=== PATIENT | male | born 1945 | race American Indian/Alaskan Native ===

== ENCOUNTER 2020-03-04 12:08 | Inpatient (IN) | payer MEDICARE ==
[2020-03-04] MEDS ORDERED: SODIUM CHLORIDE 0.9% 1000 ML IV SOLN IV ONE (13:26)
--- NOTE | 2020-03-04 13:38 | Emergency Department Report ---
ED General Adult HPI - General Chief complaint: Skin/Abscess/Foreign Body Stated complaint: FACE SWELLING PUI?: No Time Seen by Provider: 03/04/20 12:43 Source: EMS ( EMS documentation not available at time of chart dictation ), RN notes reviewed Mode of arrival: Stretcher Limitations: Altered Mental Status, Physical Limitation, Other (Patient is nonverbal. The patient is not accompanied by friends or family at this time for additional information or collateral information) - History of Present Illness Initial comments: The patient was evaluated in the emergency department for symptoms described in the history of present illness. He/she was evaluated in the context of the global COVID-19 pandemic, which necessitated consideration that the patient might be at risk for infection with the virus that causes COVID-19. In stitutional protocols and algorithms that pertain to the evaluation of patients at risk for COVID-19 are in a state of rapid change based on information released by regulatory bodies including the CDC and federal and state organizations. These policies and algorithms were followed during the patient's care in the emergency department. Please note that these policies, procedures and recommendations changed on a rapid basis. The patient is a 74-year-old gentleman. The patient is not known to myself previously. History obtained from enclosed paperwork, and from nursing team, who received report from EMS. Patient was recently admitted to [facility], February 13 through February 20. He apparently had an encounter for orthopedic surgery, and was reportedly admitted for a fracture of the unspecified part of the neck of the left femur, subsequent encounter for closed fracture with routine healing. He apparently had surgical fixation of the left femur, and was reportedly discharged with a Anguiano catheter, and abductor pillow. His primary care doctor is Dr. Alf Kruger His physical medicine physician is Dr.Ene Mikaela Cuevas It is not known who his orthopedic physician is. He appears to have a history of hypothyroidism, and hypertension. He also has a history of urinary retention, dementia, and anemia. He was sent to the emergency room for right-sided neck redness, warmth, swelling. He does not know when his symptoms started. It is not known if there is any trauma. The patient is not verbal at this time, and he is not able to describe the qualitative nature of his symptoms, exacerbating, or relieving factors. He is not accompanied by friends or family at this time for additional information or collateral information. -: unknown Location: neck Radiation: other Severity scale (0 -10): 2 Quality: other Consistency: other Improves with: other Worsens with: other - Related Data Home Medications Medication Instructions Recorded Confirmed Last Taken Acetaminophen [Tylenol] 650 mg PO Q6H PRN 03/04/20 03/04/20 Unknown Aspirin [Adult Aspirin] 81 mg PO DAILY 03/04/20 03/04/20 Unknown Cholecalciferol (Vitamin D3) 2,000 unit PO QDAY 03/04/20 03/04/20 Unknown [Vitamin D3 2,000 UNIT CAP] Enoxaparin [Lovenox] 40 mg SQ QDAY 03/04/20 03/04/20 Unknown HYDROcodone/APAP 5-325 [[place] 1 each PO Q8HR PRN 03/04/20 03/04/20 Unknown 5/325] LORazepam [Lorazepam] 0.5 mg PO DAILY 03/04/20 03/04/20 Unknown Lactobacillus Rhamnosus GG 1 each PO QDAY 03/04/20 03/04/20 Unknown [Culturelle] Levothyroxine [Synthroid] 75 mcg PO QAM 03/04/20 03/04/20 Unknown Melatonin 1 mg PO QHS 03/04/20 03/04/20 Unknown Polyethylene Glycol 3350 17 gm PO DAILY PRN 03/04/20 03/04/20 Unknown [Powderlax] Sertraline [Zoloft] 100 mg PO QDAY 03/04/20 03/04/20 Unknown Tamsulosin [Flomax] 0.4 mg PO QDAY 03/04/20 03/04/20 Unknown lisinopriL [Zestril] 20 mg PO QDAY 03/04/20 03/04/20 Unknown risperiDONE [RisperDAL] 0.25 mg PO QHS 03/04/20 03/04/20 Unknown Allergies Allergy/AdvReac Type Severity Reaction Status Date / Time duloxetine [From Cymbalta] Allergy Unknown Verified 03/04/20 12:47 lamotrigine [From Lamictal] Allergy Unknown Verified 03/04/20 12:47 milk Allergy Unknown Verified 03/04/20 12:47 ofloxacin Allergy Unknown Verified 03/04/20 12:47 pregabalin [From Lyrica] Allergy Unknown Verified 03/04/20 12:47 ED Review of Systems ROS: Stated complaint: FACE SWELLING Other details as noted in HPI Comment: Unobtainable due to pts medical conditions ED Past Medical Hx - Past Medical History Previous Medical History?: Yes Hx Hypertension: Yes Additional medical history: Hypothyroidism, Alzheimer's, - Social History Smoking Status: Smoker, Current Status Unknown - Medications Home Medications: Home Medications Medication Instructions Recorded Confirmed Last Taken Type Acetaminophen [Tylenol] 650 mg PO Q6H PRN 03/04/20 03/04/20 Unknown History Aspirin [Adult Aspirin] 81 mg PO DAILY 03/04/20 03/04/20 Unknown History Cholecalciferol (Vitamin D3) 2,000 unit PO QDAY 03/04/20 03/04/20 Unknown History [Vitamin D3 2,000 UNIT CAP] Enoxaparin [Lovenox] 40 mg SQ QDAY 03/04/20 03/04/20 Unknown History HYDROcodone/APAP 5-325 [[place] 1 each PO Q8HR PRN 03/04/20 03/04/20 Unknown History 5/325] LORazepam [Lorazepam] 0.5 mg PO DAILY 03/04/20 03/04/20 Unknown History Lactobacillus Rhamnosus GG 1 each PO QDAY 03/04/20 03/04/20 Unknown History [Culturelle] Levothyroxine [Synthroid] 75 mcg PO QAM 03/04/20 03/04/20 Unknown History Melatonin 1 mg PO QHS 03/04/20 03/04/20 Unknown History Polyethylene Glycol 3350 17 gm PO DAILY PRN 03/04/20 03/04/20 Unknown History [Powderlax] Sertraline [Zoloft] 100 mg PO QDAY 03/04/20 03/04/20 Unknown History Tamsulosin [Flomax] 0.4 mg PO QDAY 03/04/20 03/04/20 Unknown History lisinopriL [Zestril] 20 mg PO QDAY 03/04/20 03/04/20 Unknown History risperiDONE [RisperDAL] 0.25 mg PO QHS 03/04/20 03/04/20 Unknown History ED Physical Exam - General Limitations: Altered Mental Status, Physical Limitation, Other General appearance: in distress - Head Head exam: Present: atraumatic, normocephalic - Eye Eye exam: Present: normal appearance - ENT ENT exam: Present: mucous membranes dry, TM's normal bilaterally, normal external ear exam - Neck Neck exam: Present: tenderness, other (On the right lateral side of the neck there is diffuse erythema, induration, and tenderness. The trachea is midline. There is no stridor.). Absent: normal inspection - Respiratory Respiratory exam: Present: accessory muscle use. Absent: respiratory distress, wheezes, rales, rhonchi, stridor - Cardiovascular Cardiovascular Exam: Present: normal rhythm, tachycardia, normal heart sounds. Absent: systolic murmur, diastolic murmur, rubs, gallop - GI/Abdominal GI/Abdominal exam: Present: soft. Absent: distended, tenderness, guarding, rebound, rigid, pulsatile mass - Rectal Rectal exam: Absent: normal inspection (There is a stage I sacral ulcer noted. Chaperoned by nurse Tate Tanner) - exam: Present: normal inspection (Is a Anguiano catheter in place draining clear yellow urine.) - Extremities Exam Extremities exam: Present: normal inspection (There are interrupted tom noted on the left hip, which are healing well, without redness, pus or streaking. There is no significant tenderness.), other (2+ pulses noted in the bilateral upper and lower extremities. There is no palpable cord. negative H omans sign. Muscular compartments are soft. The pelvis is stable.) - Back Exam Back exam: Present: normal inspection. Absent: tenderness, CVA tenderness (R), CVA tenderness (L), paraspinal tenderness, vertebral tenderness - Neurological Exam Neurological exam: Present: altered, other (The patient is awake. The patient moves 4 extremities. The patient is nonverbal. Detailed neurologic examination not possible secondary to patient not answering questions, or following commands) - Skin Skin exam: Present: warm, erythema (There is right neck erythema), ecchymosis (There is left bicep ecchymosis) ED Course Vital Signs 03/04/20 03/04/20 03/04/20 12:46 14:05 16:33 Temperature 98.2 F 99.6 F Pulse Rate 103 H 107 H 100 H Respiratory 17 22 23 Rate Blood Pressure Blood Pressure 124/82 147/79 96/76 [Right] O2 Sat by Pulse 98 97 99 Oximetry 03/04/20 03/04/20 17:16 17:46 Temperature Pulse Rate 100 H 101 H Respiratory 22 24 Rate Blood Pressure 142/76 158/78 Blood Pressure [Right] O2 Sat by Pulse 98 97 Oximetry - Reevaluation(s) Reevaluation #1: 03/04/20 13:40 Differential diagnosis, include but not limited to: Cellulitis, abscess, septic thrombophlebitis, Lemierre's disease Assessment and plan: 74-year-old gentleman with dry mucous membranes, who was tachycardic and tachypneic, rectal temperature of 99.3 degrees, with tender warm red right-sided neck, concerning for neck infection. Patient will be resuscitated according to the sepsis pathway. CT scan of the neck is requested. His orthopedic site appears to be clean, healing well, without redness, pus or streaking. He has an indwelling Anguiano catheter, that will need to be changed out, and a fresh urine sample should be sent. He will be medicated empirically with clindamycin and fluids. We have requested his old medical records from [facility]. Of note, there is a request on his [facility] paperwork to "please remove tom on the left hip." This wound does not appear to be infected or acutely decompensated, this will need to be done by his orthopedist/operating physician of record. This is not an emergency condition at this time. Reevaluation #2: P Patient's is at the bedside. She endorses that the orthopedist is Dr. Dallas, with [facility]. She indicates that they were supposed to follow-up with him today to have the tom discontinued. She indicates the patient has chronic dementia. She indicates the patient is poorly verbal/nonverbal at baseline. I have updated the patient's on the patient's situation. I have also advised her that they will need to follow-up with her outpatient orthopedist as an outpatient to have the tom removed/discontinued. She is amenable to this plan of care at this time. In addition, as per the patient's , patient has a left humerus fracture, and a left wrist fracture, hence left bicep ecchymosis, patient needs a sling for t he left upper extremity, and has a splint for his left wrist. . 03/04/20 13:55 Reevaluation #3: 03/04/20 14:25 Laboratory studies show leukocytosis of 31,000, hypernatremia, metabolic acidosis, renal insufficiency. Patient ruling in for Sirs/sepsis criteria as we expected. CT scan of the neck will be changed to a noncontrast CT scan of the neck, we will obtain upper e xtremity DVT study to evaluate for thrombosis. Prognosis remains guarded. Patient's is updated on this plan of care. She reports that while the patient was in the hospital, she would have to feed him, and assist with eating and drinking. She reports it typically took an hour to feed the patient. She further reports that where the patient is receiving his physical therapy, rehabilitation, [place], secondary to COVID, gas and visitors are not allowed. She feels that the patient's nails are "dirty, and that he "looks dehydrated." He also had "urinary issues" while he was in the [facility], and required multiple placements of Anguiano catheters, and occasionally was found to have postvoid residual of 900 cc. She reports they are going to follow-up with an outpatient neurologist at some point. I updated the patient's on the patient's current situation and labo ratory studies. To the best of her recollection, the patient does not have a history of renal insufficiency. 03/04/20 14:32 Reevaluation #4: 03/04/20 15:04 CT scan of the neck shows cellulitis without abscess, phlegmon. Upper extremity DVT study is pending. Hospital physician, Dr. Desir will admit patient to the medical service. Patient's is updated. 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 Unfractionated heparin is ordered. We have placed a page out to vascular surgery to follow in consultation. - Consultations Consultation #1: 03/04/20 14:43 Discussed history, physical, pertinent laboratory studies with nephrology on- call, Ms. Urbano, nurse practitioner working with Dr. Melo, nephrology will see the patient in conjunction. Consultation #2: 03/04/20 17:23 Discussed history, physical, pertinent laboratory studies and imaging studies with vascular surgeon on-call, Dr. Diggs. His group will follow in consultation. Agrees with fluids, antibiotics and systemic anticoagulation. ED Medical Decision Making - Lab Data Result diagrams: 03/04/20 13:38 03/04/20 13:38 Vital Signs 03/04/20 12:46 Temperature 98.2 F Pulse Rate 103 H Respiratory 17 Rate Blood Pressure 124/82 [Right] O2 Sat by Pulse 98 Oximetry Lab Results 03/04/20 03/04/20 03/04/20 Range/Units 13:38 13:38 13:38 WBC 31.9 H (4.5-11.0) K/mm3 RBC 3.59 L (3.65-5.03) M/mm3 Hgb 10.7 L (11.8-15.2) gm/dl Hct 32.5 L (35.5-45.6) % MCV 91 (84-94) fl MCH 30 (28-32) pg MCHC 33 (32-34) % RDW 16.0 H (13.2-15.2) % Plt Count 724 H (140-440) K/mm3 Seg Neutrophils % Remote Broadcast Technician PT 15.6 H (12.2-14.9) Sec. INR 1.21 H (0.87-1.13) APTT 33.0 (24.2-36.6) Sec. Sodium 154 H (137-145) mmol/L Potassium 4.3 (3.6-5.0) mmol/L Chloride 111.3 H (98-107) mmol/L Carbon Dioxide 19 L (22-30) mmol/L Anion Gap 28 mmol/L BUN 143 H (9-20) mg/dL Creatinine 5.4 H (0.8-1.3) mg/dL Estimated GFR 13 ml/min BUN/Creatinine Ratio 26 % Glucose 188 H (75-100) mg/dL Lactic Acid (0.7-2.0) mmol/L Calcium 8.8 (8.4-10.2) mg/dL Magnesium (1.7-2.3) mg/dL Total Bilirubin 0.60 (0.1-1.2) mg/dL AST 51 H (5-40) units/L ALT 60 H (7-56) units/L Alkaline Phosphatase 185 H (35-129) units/L Total Creatine Kinase (55-170) units/L Total Protein 8.1 (6.3-8.2) g/dL Albumin 3.1 L (3.9-5) g/dL Albumin/Globulin Ratio 0.6 % Urine Color (Yellow) Urine Turbidity (Clear) Urine pH (5.0-7.0) Ur Specific [place] (1.003-1.030) Urine Protein (Negative) mg/dL Urine Glucose (UA) (Negative) mg/dL Urine Ketones (Negative) mg/dL Urine Blood (Negative) Urine Nitrite (Negative) Urine Bilirubin (Negative) Urine Urobilinogen (<2.0) mg/dL Ur Leukocyte Esterase (Negative) Urine WBC (Auto) (0.0-6.0) /HPF Urine RBC (Auto) (0.0-6.0) /HPF U Epithel Cells (Auto) (0-13.0) /HPF Urine Bacteria (Auto) (Negative) /HPF Ur Transition Epith Cell /HPF Urine Mucus /HPF Salicylates (2.8-20.0) mg/dL Acetaminophen (10.0-30.0) ug/mL 03/04/20 03/04/20 03/04/20 Range/Units 13:38 13:38 13:38 WBC (4.5-11.0) K/mm3 RBC (3.65-5.03) M/mm3 Hgb (11.8-15.2) gm/dl Hct (35.5-45.6) % MCV (84-94) fl MCH (28-32) pg MCHC (32-34) % RDW (13.2-15.2) % Plt Count (140-440) K/mm3 Seg Neutrophils % PT (12.2-14.9) Sec. INR (0.87-1.13) APTT (24.2-36.6) Sec. Sodium (137-145) mmol/L Potassium (3.6-5.0) mmol/L Chloride (98-107) mmol/L Carbon Dioxide (22-30) mmol/L Anion Gap mmol/L BUN (9-20) mg/dL Creatinine (0.8-1.3) mg/dL Estimated GFR ml/min BUN/Creatinine Ratio % Glucose (75-100) mg/dL Lactic Acid 1.40 (0.7-2.0) mmol/L Calcium (8.4-10.2) mg/dL Magnesium 3.40 H (1.7-2.3) mg/dL Total Bilirubin (0.1-1.2) mg/dL AST (5-40) units/L ALT (7-56) units/L Alkaline Phosphatase (35-129) units/L Total Creatine Kinase 82 (55-170) units/L Total Protein (6.3-8.2) g/dL Albumin (3.9-5) g/dL Albumin/Globulin Ratio % Urine Color (Yellow) Urine Turbidity (Clear) Urine pH (5.0-7.0) Ur Specific [place] (1.003-1.030) Urine Protein (Negative) mg/dL Urine Glucose (UA) (Negative) mg/dL Urine Ketones (Negative) mg/dL Urine Blood (Negative) Urine Nitrite (Negative) Urine Bilirubin (Negative) Urine Urobilinogen (<2.0) mg/dL Ur Leukocyte Esterase (Negative) Urine WBC (Auto) (0.0-6.0) /HPF Urine RBC (Auto) (0.0-6.0) /HPF U Epithel Cells (Auto) (0-13.0) /HPF Urine Bacteria (Auto) (Negative) /HPF Ur Transition Epith Cell /HPF Urine Mucus /HPF Salicylates < 0.3 L (2.8-20.0) mg/dL Acetaminophen (10.0-30.0) ug/mL 03/04/20 03/04/20 Range/Units 13:38 13:55 WBC (4.5-11.0) K/mm3 RBC (3.65-5.03) M/mm3 Hgb (11.8-15.2) gm/dl Hct (35.5-45.6) % MCV (84-94) fl MCH (28-32) pg MCHC (32-34) % RDW (13.2-15.2) % Plt Count (140-440) K/mm3 Seg Neutrophils % PT (12.2-14.9) Sec. INR (0.87-1.13) APTT (24.2-36.6) Sec. Sodium (137-145) mmol/L Potassium (3.6-5.0) mmol/L Chloride (98-107) mmol/L Carbon Dioxide (22-30) mmol/L Anion Gap mmol/L BUN (9-20) mg/dL Creatinine (0.8-1.3) mg/dL Estimated GFR ml/min BUN/Creatinine Ratio % Glucose (75-100) mg/dL Lactic Acid (0.7-2.0) mmol/L Calcium (8.4-10.2) mg/dL Magnesium (1.7-2.3) mg/dL Total Bilirubin (0.1-1.2) mg/dL AST (5-40) units/L ALT (7-56) units/L Alkaline Phosphatase (35-129) units/L Total Creatine Kinase (55-170) units/L Total Protein (6.3-8.2) g/dL Albumin (3.9-5) g/dL Albumin/Globulin Ratio % Urine Color Ewa (Yellow) Urine Turbidity Turbid (Clear) Urine pH 5.0 (5.0-7.0) Ur Specific [place] 1.017 (1.003-1.030) Urine Protein 30 mg/dl (Negative) mg/dL Urine Glucose (UA) Neg (Negative) mg/dL Urine Ketones Neg (Negative) mg/dL Urine Blood Sm (Negative) Urine Nitrite Neg (Negative) Urine Bilirubin Neg (Negative) Urine Urobilinogen < 2.0 (<2.0) mg/dL Ur Leukocyte Esterase Lg (Negative) Urine WBC (Auto) > 182.0 H (0.0-6.0) /HPF Urine RBC (Auto) 31.0 (0.0-6.0) /HPF U Epithel Cells (Auto) 1.0 (0-13.0) /HPF Urine Bacteria (Auto) 4+ (Negative) /HPF Ur Transition Epith Cell 5 /HPF Urine Mucus Few /HPF Salicylates (2.8-20.0) mg/dL Acetaminophen 5.0 L (10.0-30.0) ug/mL Lab Results 03/04/20 03/04/20 03/04/20 Range/Units 13:38 13:38 13:38 WBC 31.9 H (4.5-11.0) K/mm3 RBC 3.59 L (3.65-5.03) M/mm3 Hgb 10.7 L (11.8-15.2) gm/dl Hct 32.5 L (35.5-45.6) % MCV 91 (84-94) fl MCH 30 (28-32) pg MCHC 33 (32-34) % RDW 16.0 H (13.2-15.2) % Plt Count 724 H (140-440) K/mm3 Seg Neutrophils % Remote Broadcast Technician PT 15.6 H (12.2-14.9) Sec. INR 1.21 H (0.87-1.13) APTT 33.0 (24.2-36.6) Sec. Sodium 154 H (137-145) mmol/L Potassium 4.3 (3.6-5.0) mmol/L Chloride 111.3 H (98-107) mmol/L Carbon Dioxide 19 L (22-30) mmol/L Anion Gap 28 mmol/L BUN 143 H (9-20) mg/dL Creatinine 5.4 H (0.8-1.3) mg/dL Estimated GFR 13 ml/min BUN/Creatinine Ratio 26 % Glucose 188 H (75-100) mg/dL Lactic Acid (0.7-2.0) mmol/L Calcium 8.8 (8.4-10.2) mg/dL Magnesium (1.7-2.3) mg/dL Total Bilirubin 0.60 (0.1-1.2) mg/dL AST 51 H (5-40) units/L ALT 60 H (7-56) units/L Alkaline Phosphatase 185 H (35-129) units/L Total Creatine Kinase (55-170) units/L Total Protein 8.1 (6.3-8.2) g/dL Albumin 3.1 L (3.9-5) g/dL Albumin/Globulin Ratio 0.6 % Urine Color (Yellow) Urine Turbidity (Clear) Urine pH (5.0-7.0) Ur Specific [place] (1.003-1.030) Urine Protein (Negative) mg/dL Urine Glucose (UA) (Negative) mg/dL Urine Ketones (Negative) mg/dL Urine Blood (Negative) Urine Nitrite (Negative) Urine Bilirubin (Negative) Urine Urobilinogen (<2.0) mg/dL Ur Leukocyte Esterase (Negative) Urine WBC (Auto) (0.0-6.0) /HPF Urine RBC (Auto) (0.0-6.0) /HPF U Epithel Cells (Auto) (0-13.0) /HPF Urine Bacteria (Auto) (Negative) /HPF Ur Transition Epith Cell /HPF Urine Mucus /HPF Salicylates (2.8-20.0) mg/dL Acetaminophen (10.0-30.0) ug/mL 03/04/20 03/04/20 03/04/20 Range/Units 13:38 13:38 13:38 WBC (4.5-11.0) K/mm3 RBC (3.65-5.03) M/mm3 Hgb (11.8-15.2) gm/dl Hct (35.5-45.6) % MCV (84-94) fl MCH (28-32) pg MCHC (32-34) % RDW (13.2-15.2) % Plt Count (140-440) K/mm3 Seg Neutrophils % PT (12.2-14.9) Sec. INR (0.87-1.13) APTT (24.2-36.6) Sec. Sodium (137-145) mmol/L Potassium (3.6-5.0) mmol/L Chloride (98-107) mmol/L Carbon Dioxide (22-30) mmol/L Anion Gap mmol/L BUN (9-20) mg/dL Creatinine (0.8-1.3) mg/dL Estimated GFR ml/min BUN/Creatinine Ratio % Glucose (75-100) mg/dL Lactic Acid 1.40 (0.7-2.0) mmol/L Calcium (8.4-10.2) mg/dL Magnesium 3.40 H (1.7-2.3) mg/dL Total Bilirubin (0.1-1.2) mg/dL AST (5-40) units/L ALT (7-56) units/L Alkaline Phosphatase (35-129) units/L Total Creatine Kinase 82 (55-170) units/L Total Protein (6.3-8.2) g/dL Albumin (3.9-5) g/dL Albumin/Globulin Ratio % Urine Color (Yellow) Urine Turbidity (Clear) Urine pH (5.0-7.0) Ur Specific [place] (1.003-1.030) Urine Protein (Negative) mg/dL Urine Glucose (UA) (Negative) mg/dL Urine Ketones (Negative) mg/dL Urine Blood (Negative) Urine Nitrite (Negative) Urine Bilirubin (Negative) Urine Urobilinogen (<2.0) mg/dL Ur Leukocyte Esterase (Negative) Urine WBC (Auto) (0.0-6.0) /HPF Urine RBC (Auto) (0.0-6.0) /HPF U Epithel Cells (Auto) (0-13.0) /HPF Urine Bacteria (Auto) (Negative) /HPF Ur Transition Epith Cell /HPF Urine Mucus /HPF Salicylates < 0.3 L (2.8-20.0) mg/dL Acetaminophen (10.0-30.0) ug/mL 03/04/20 03/04/20 Range/Units 13:38 13:55 WBC (4.5-11.0) K/mm3 RBC (3.65-5.03) M/mm3 Hgb (11.8-15.2) gm/dl Hct (35.5-45.6) % MCV (84-94) fl MCH (28-32) pg MCHC (32-34) % RDW (13.2-15.2) % Plt Count (140-440) K/mm3 Seg Neutrophils % PT (12.2-14.9) Sec. INR (0.87-1.13) APTT (24.2-36.6) Sec. Sodium (137-145) mmol/L Potassium (3.6-5.0) mmol/L Chloride (98-107) mmol/L Carbon Dioxide (22-30) mmol/L Anion Gap mmol/L BUN (9-20) mg/dL Creatinine (0.8-1.3) mg/dL Estimated GFR ml/min BUN/Creatinine Ratio % Glucose (75-100) mg/dL Lactic Acid (0.7-2.0) mmol/L Calcium (8.4-10.2) mg/dL Magnesium (1.7-2.3) mg/dL Total Bilirubin (0.1-1.2) mg/dL AST (5-40) units/L ALT (7-56) units/L Alkaline Phosphatase (35-129) units/L Total Creatine Kinase (55-170) units/L Total Protein (6.3-8.2) g/dL Albumin (3.9-5) g/dL Albumin/Globulin Ratio % Urine Color Ewa (Yellow) Urine Turbidity Turbid (Clear) Urine pH 5.0 (5.0-7.0) Ur Specific [place] 1.017 (1.003-1.030) Urine Protein 30 mg/dl (Negative) mg/dL Urine Glucose (UA) Neg (Negative) mg/dL Urine Ketones Neg (Negative) mg/dL Urine Blood Sm (Negative) Urine Nitrite Neg (Negative) Urine Bilirubin Neg (Negative) Urine Urobilinogen < 2.0 (<2.0) mg/dL Ur Leukocyte Esterase Lg (Negative) Urine WBC (Auto) > 182.0 H (0.0-6.0) /HPF Urine RBC (Auto) 31.0 (0.0-6.0) /HPF U Epithel Cells (Auto) 1.0 (0-13.0) /HPF Urine Bacteria (Auto) 4+ (Negative) /HPF Ur Transition Epith Cell 5 /HPF Urine Mucus Few /HPF Salicylates (2.8-20.0) mg/dL Acetaminophen 5.0 L (10.0-30.0) ug/mL - Radiology Data Radiology results: pending, report reviewed, image reviewed xr chest : negative Print Report Referring Physician: HEIDY SMITH Patient Name: CARRILLO CROCKETT Date of : 1945 Sex: Male Report Date: 2020-03-04 Report Status: Finalized Findings [facility] [address] [place] [address] Cat Scan Report Signed Patient: CARRILLO CROCKETT MR#: [id number] 6 : 1945 ct:[id number] Age/Sex: 74 / M ADM Date: 03/04/20 Loc: ED Attending Dr: Ordering Physician: HEIDY SMITH MD Date of Service: 03/04/20 Procedure(s): CT neck wo con Accession Number(s): [id number] cc: HEIDY SMITH MD NECK CT 03/04/2020 HISTORY: right sided neck pain and swelling NO IV, ELEVATED CREAT AND DECREASED GFR FINDINGS: Unenhanced CT images of the soft tissues of the neck were obtained. No previous studies are available here for comparison. There is a prominent enlargement of the right parotid gland, associated with surrounding cellulitic changes in the parotid region and extending downward along the right lateral aspect of the neck. Swelling and enlargement of the platysma muscle is noted, consistent with inflammatory response. There is no evidence of fluid collection or abscess. There is bilateral symmetric enlargement and fatty replacement of the submandibular glands, consistent with chronic inflammatory change. There is no evidence of active inflammation of the submandibular glands. Left parotid gland is unremarkable. Incidental note is made of a negative cisterna magna, normal variant. IMPRESSION: Cellulitic inflammatory changes associated with the right parotid gland and surrounding soft tissues, consistent with extensive cellulitis. No evidence of abscess. All CT scans at this location are performed using dose reduction to ALARA by means of automated exposure control. Signer Name: Dmitry Day MD Signed: 03/04/2020 2:49 PM Workstation Name: [id number] Transcribed By: NASIMA Dictated By: Dmitry Day MD Electronically Authenticated By: Dmitry Day MD Signed Date/Time: 03/04/20 1449 DD/ 1445 TD/TT: Print Report Referring Physician: HEIDY SMITH Patient Name: CARRILLO CROCKETT Date of : 1945 Sex: Male Report Date: 2020-03-04 Report Status: Finalized Findings [facility] [address] [place], [place] [address] XRay Report Signed Patient: CARRILLO CROCKETT MR#: [id number] 6 : 1945 Acct:[id number] Age/Sex: 74 / M ADM Date: 03/04/20 Loc: ED Attending Dr: Ordering Physician: HEIDY SMITH MD Date of Service: 03/04/20 Procedure(s): XR chest 1V ap Accession Number(s): [id number] cc: HEIDY SMITH MD Fluoro Time In Minutes: CHEST 1 VIEW INDICATION: sepsis weal COMPARISON: None FINDINGS: SUPPORT DEVICES: None. HEART / MEDIASTINUM: No significant abnormality. LUNGS / PLEURA: No significant pulmonary or pleural abnormality. No pneumothorax. ADDITIONAL FINDINGS: IMPRESSION: 1. No acute cardiopulmonary disease Signer Name: Shai Killian MD Signed: 03/04/2020 1:56 PM Workstation Name: [id number] Transcribed By: REGAN Dictated By: Shai Killian MD Electronically Authenticated By: Shai Killian MD Signed Date/Time: 03/04/20 1356 DD/ 1355 Critical Care Time: Yes Critical care time in (mins) excluding proc time.: 35 Critical care attestation.: If time is entered above; I have spent that time in minutes in the direct care of this critically ill patient, excluding procedure time. ED Disposition Clinical Impression: SIRS (systemic inflammatory response syndrome), TERRY (acute kidney injury), Hypernatremia, Metabolic acidosis, Anguiano catheter in place, History of femur fracture, History of humerus fracture Disposition: OP ADMIT IP TO THIS HOSP Is pt being admited?: Yes Does the pt Need Aspirin: No Condition: Serious
[2020-03-04 13:57] LABS: Hematocrit 32.5 % (35.5-45.6); Hemoglobin 10.7 gm/dl (11.8-15.2); Mean Corpuscular HGB Conc 33 % (32-34); Mean Corpuscular Volume 91 fl (84-94); Platelet Count 724 K/mm3 (140-440); Red Blood Count 3.59 M/mm3 (3.65-5.03)
[2020-03-04] MEDS ORDERED: CLINDAMYCIN 600 MG/50 mL 600 MG/50 ML BAG IV SCH (14:00)
--- NOTE | 2020-03-04 14:00 | XRay Report ---
CHEST 1 VIEW INDICATION: sepsis weal COMPARISON: None FINDINGS: SUPPORT DEVICES: None. HEART / MEDIASTINUM: No significant abnormality. LUNGS / PLEURA: No significant pulmonary or pleural abnormality. No pneumothorax. ADDITIONAL FINDINGS: IMPRESSION: 1. No acute cardiopulmonary disease Signer Name: Shai Killian MD Signed: 03/04/2020 1:56 PM Workstation Name: [id number]
[2020-03-04 14:07] LABS: INR 1.21 (0.87-1.13)
[2020-03-04 14:10] LABS: Bacteria,Urine 4+ /HPF (Negative); Bilirubin,Urine NEG (Negative); Blood,Urine SM (Negative); Color,Urine Amber (Yellow); Mucus,Urine FEW /HPF; Urobilinogen,Urine < 2.0 mg/dL (<2.0)
[2020-03-04 14:10] LABS: Albumin 3.1 g/dL (3.9-5); Calcium 8.8 mg/dL (8.4-10.2)
[2020-03-04 14:15] LABS: WBC,Urine > 182.0 /HPF (0.0-6.0)
[2020-03-04] MEDS ORDERED: cefTRIAXone/NS 1 GM/50 ML 1 GM/50 ML BAG IV ONE (14:23)
[2020-03-04] MEDS ORDERED: fentaNYL 100 MCG/2 ML INJ IV ONE (14:33)
[2020-03-04 14:40] LABS: Total Cells Counted 100
[2020-03-04 14:41] LABS: Anisocytosis Few; Band Neutrophils # (Manual) 0.6 K/mm3; Basophils % (Manual) 0 % (0.0-1.8); Eosinophils % (Manual) 0 % (0.0-4.3); Macrocytosis Few; Platelet Estimate Consistent w Auto
--- NOTE | 2020-03-04 14:54 | Cat Scan Report ---
NECK CT 03/04/2020 HISTORY: right sided neck pain and swelling NO IV, ELEVATED CREAT AND DECREASED GFR FINDINGS: Unenhanced CT images of the soft tissues of the neck were obtained. No previous studies are available here for comparison. There is a prominent enlargement of the right parotid gland, associated with surrounding cellulitic c hanges in the parotid region and extending downward along the right lateral aspect of the neck. Swell ing and enlargement of the platysma muscle is noted, consistent with inflammatory response. There is no evidence of fluid collection or abscess. There is bilateral symmetric enlargement and fatty replacement of the submandibular glands, consisten t with chronic inflammatory change. There is no evidence of active inflammation of the submandibular glands. Left parotid gland is unremarkable. Incidental note is made of a negative cisterna magna, normal variant. IMPRESSION: Cellulitic inflammatory changes associated with the right parotid gland and surrounding s oft tissues, consistent with extensive cellulitis. No evidence of abscess. All CT scans at this location are performed using dose reduction to ALARA by means of automated expos ure control. Signer Name: Dmitry Day MD Signed: 03/04/2020 2:49 PM Workstation Name: [id number]
--- NOTE | 2020-03-04 15:05 | History and Physical Report ---
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 Patient is nonverbal, lethargic and is unable to provide history at the time of my evaluation. Patient is at bedside during exam and interview and provides history. As per the patient has experienced a rapid decline in his state of health after suffering a fall complicated by hip fracture on February 13. Patient reports increased confusion as well as right neck swelling over the past 2 days with progressively worsening symptoms over the same timeframe. EMS was notified and upon arrival the patient was found to be in distress and subsequently transported to [facility] for further care and evaluation of the aforementioned symptoms. Patient seen and evaluated in the emergency department. Lab and imaging studies reviewed. 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 Patient admitted to ICU due to increased risk of multisystem decompensation. Vascular surgery service consulted in the emergency department and the patient is initiated on a heparin drip. Patient found to have poor prognosis. Advanced care planning conducted in ED. Patient prognosis discussed with . Patient acknowledges understanding and agreement with care plan. Patient is confused and lethargic at the time of my evaluation but the patient has a positive gag reflex and is able to protect his airway without difficulty. Th Past History Past Medical History: anemia, hypertension, hypothyroidism, other (See HPI) Past Surgical History: Other (Femur Repari) Social history: , lives with family. denies: smoking, alcohol abuse, pr escription drug abuse Family history: hypertension Medications and Allergies Allergies Allergy/AdvReac Type Severity Reaction Status Date / Time duloxetine [From Cymbalta] Allergy Unknown Verified 03/04/20 12:47 lamotrigine [From Lamictal] Allergy Unknown Verified 03/04/20 12:47 milk Allergy Unknown Verified 03/04/20 12:47 ofloxacin Allergy Unknown Verified 03/04/20 12:47 pregabalin [From Lyrica] Allergy Unknown Verified 03/04/20 12:47 Active Meds: Active Medications Clindamycin HCl (Cleocin 600 Mg/50 Ml) 600 mg in 50 mls @ 100 mls/hr IV NOW DIPTI; Protocol Last Admin: 03/04/20 14:02 Dose: 100 mls/hr Documented by: Review of Systems ROS unobtainable: due to mental status Exam - Constitutional Vitals: Temp Pulse Resp BP Pulse Ox 99.6 F 107 H 22 147/79 97 03/04/20 14:05 03/04/20 14:05 03/04/20 14:05 03/04/20 14:05 03/04/20 14:05 General appearance: Present: severe distress - EENT Eyes: Present: PERRL ENT: clear oral mucosa, hearing decreased - Neck Neck: Present: supple, other (Right neck erythema, edema, induration.) - Respiratory Respiratory effort: labored Respiratory: bilateral: CTA - Cardiovascular Rhythm: regular Heart Sounds: Present: S1 & S2 - Extremities Extremities: no ischemia Peripheral Pulses: abnormal (Capillary refill greater than 3.5 seconds) - Abdominal General gastrointestinal: Present: soft, non-tender, non-distended, normal bowel sounds Male genitourinary: Present: normal - Integumentary Integumentary: Present: dry, clammy, decreased turgor - Musculoskeletal Musculoskeletal: generalized weakness - Psychiatric Psychiatric: no appropriate mood/affect, no intact judgment & insight, no memory intact - Neurologic Neurologic: CNII-XII intact, no focal deficits, moves all extremities, no gait normal Results - Labs CBC & Chem 7: 03/04/20 13:38 03/04/20 13:38 Labs: Abnormal lab results 03/04/20 03/04/20 03/04/20 Range/Units 13:38 13:38 13:38 WBC 31.9 H (4.5-11.0) K/mm3 RBC 3.59 L (3.65-5.03) M/mm3 Hgb 10.7 L (11.8-15.2) gm/dl Hct 32.5 L (35.5-45.6) % RDW 16.0 H (13.2-15.2) % Plt Count 724 H (140-440) K/mm3 Seg Neuts % (Manual) 91.0 H (40.0-70.0) % Lymphocytes % (Manual) 3.0 L (13.4-35.0) % Nucleated RBC % 1.0 H (0.0-0.9) % Seg Neutrophils # Man 29.0 H (1.8-7.7) K/mm3 Lymphocytes # (Manual) 1.0 L (1.2-5.4) K/mm3 Monocytes # (Manual) 1.3 H (0.0-0.8) K/mm3 PT 15.6 H (12.2-14.9) Sec. INR 1.21 H (0.87-1.13) Sodium 154 H (137-145) mmol/L Chloride 111.3 H (98-107) mmol/L Carbon Dioxide 19 L (22-30) mmol/L BUN 143 H (9-20) mg/dL Creatinine 5.4 H (0.8-1.3) mg/dL Glucose 188 H (75-100) mg/dL Magnesium (1.7-2.3) mg/dL AST 51 H (5-40) units/L ALT 60 H (7-56) units/L Alkaline Phosphatase 185 H (35-129) units/L Albumin 3.1 L (3.9-5) g/dL Urine WBC (Auto) (0.0-6.0) /HPF Salicylates (2.8-20.0) mg/dL Acetaminophen (10.0-30.0) ug/mL 03/04/20 03/04/20 03/04/20 Range/Units 13:38 13:38 13:38 WBC (4.5-11.0) K/mm3 RBC (3.65-5.03) M/mm3 Hgb (11.8-15.2) gm/dl Hct (35.5-45.6) % RDW (13.2-15.2) % Plt Count (140-440) K/mm3 Seg Neuts % (Manual) (40.0-70.0) % Lymphocytes % (Manual) (13.4-35.0) % Nucleated RBC % (0.0-0.9) % Seg Neutrophils # Man (1.8-7.7) K/mm3 Lymphocytes # (Manual) (1.2-5.4) K/mm3 Monocytes # (Manual) (0.0-0.8) K/mm3 PT (12.2-14.9) Sec. INR (0.87-1.13) Sodium (137-145) mmol/L Chloride (98-107) mmol/L Carbon Dioxide (22-30) mmol/L BUN (9-20) mg/dL Creatinine (0.8-1.3) mg/dL Glucose (75-100) mg/dL Magnesium 3.40 H (1.7-2.3) mg/dL AST (5-40) units/L ALT (7-56) units/L Alkaline Phosphatase (35-129) units/L Albumin (3.9-5) g/dL Urine WBC (Auto) (0.0-6.0) /HPF Salicylates < 0.3 L (2.8-20.0) mg/dL Acetaminophen 5.0 L (10.0-30.0) ug/mL 03/04/20 Range/Units 13:55 WBC (4.5-11.0) K/mm3 RBC (3.65-5.03) M/mm3 Hgb (11.8-15.2) gm/dl Hct (35.5-45.6) % RDW (13.2-15.2) % Plt Count (140-440) K/mm3 Seg Neuts % (Manual) (40.0-70.0) % Lymphocytes % (Manual) (13.4-35.0) % Nucleated RBC % (0.0-0.9) % Seg Neutrophils # Man (1.8-7.7) K/mm3 Lymphocytes # (Manual) (1.2-5.4) K/mm3 Monocytes # (Manual) (0.0-0.8) K/mm3 PT (12.2-14.9) Sec. INR (0.87-1.13) Sodium (137-145) mmol/L Chloride (98-107) mmol/L Carbon Dioxide (22-30) mmol/L BUN (9-20) mg/dL Creatinine (0.8-1.3) mg/dL Glucose (75-100) mg/dL Magnesium (1.7-2.3) mg/dL AST (5-40) units/L ALT (7-56) units/L Alkaline Phosphatase (35-129) units/L Albumin (3.9-5) g/dL Urine WBC (Auto) > 182.0 H (0.0-6.0) /HPF Salicylates (2.8-20.0) mg/dL Acetaminophen (10.0-30.0) ug/mL Assessment and Plan - Patient Problems (1) Sepsis Current Visit: Yes Status: Acute Qualifiers: Severe sepsis acute organ dysfunction type: acute renal failure Plan to address problem: Sepsis protocol: Admit to ICU, CBC, CMP, chest x-ray, urinalysis, IV fluid resuscitation therapy, IV antibiotic therapy, serial lactic acid level, maintain mean arterial blood pressure greater than or equal to 65, monitor urine output every shift. Critical care team consulted. The high probability of a clinically significant, sudden or life threatening deterioration of the [neuro, cardiac, pulmonary, renal, infectious disease, hematologic, vascular] system(s) required my full and direct attention, intervention and personal management. The aggregate critical care time was [95] minutes. This time is in addition to time spent performing reported procedures but includes the following: [x] Data Review and interpretation [x] Patient assessment and monitoring of vital signs [x] Documentation [x] Medication orders and management (2) Toxic metabolic encephalopathy Current Visit: Yes Status: Acute Plan to address problem: CT head, neuro check, treat sepsis, IV fluid resuscitation therapy, supportive care. (3) Acute kidney injury with acute tubular necrosis Current Visit: Yes Status: Acute Plan to address problem: IV fluid resuscitation therapy, monitor urine output every shift, nephrology team consulted in ED. Avoid nephrotoxic agents. (4) Urinary tract infection Current Visit: Yes Status: Acute Qualifiers: Encounter type: initial encounter Plan to address problem: CBC, CMP, urinalysis, IV antibiotic therapy. (5) Lemierre syndrome Current Visit: Yes Status: Acute Plan to address problem: Vascular surgery service consulted in ED, CT scan of the neck, heparin drip, supportive care. (6) Cellulitis, neck Current Visit: Yes Status: Acute Plan to address problem: CBC, BMP, IV antibiotic therapy. CT scan today. (7) Volume depletion Current Visit: Yes Status: Acute Plan to address problem: IV fluid resuscitation therapy, monitor urine output she every shift. Monitor fluid balance. Repeat BMP in a.m. (8) Metabolic acidosis Current Visit: Yes Status: Acute Plan to address problem: Serial lactic acid level, BMP, IV bicarbonate therapy. Supportive care. (9) DVT prophylaxis Current Visit: Yes Status: Acute Plan to address problem: SCD to bilateral lower extremities while in bed, continue therapeutic anticoagulation (10) Advance care planning Current Visit: Yes Status: Acute Plan to address problem: Disease education conducted, prognosis discussed. Patient is full code. Patient has very poor prognosis. Patient's acknowledges understanding and agreement with care plan, +30 minutes.
[2020-03-04] MEDS ORDERED: HEPARIN 10,000 UNITS/10 ML VIAL IV ONE (15:18)
[2020-03-04] MEDS ORDERED: PIPERACIL/TAZOBACTA 4.5/NS 100 4.5 GM/100 ML VIAL IV ONE (15:35)
[2020-03-04] MEDS ORDERED: ACETAMINOPHEN 325 MG TAB PO PRN (15:51)
[2020-03-04] MEDS ORDERED: ALBUTEROL 2.5 MG/3 ML NEBU IH PRN (15:51)
[2020-03-04] MEDS ORDERED: VANCOMYCIN 1,250 MG in SODIUM CHLORIDE 0.9% 500 ML 500 ML IV ONE (15:51)
[2020-03-04] MEDS ORDERED: VANCOMYCIN PHARMACY TO DOSE IV SCH (16:00)
[2020-03-04] MEDS: HEPARIN/ 0.45% NACL DRIP 25,000 UNIT/500 ML BAG IV SCH (16:29)
[2020-03-04] MEDS ORDERED: SODIUM BICARB 8.4% 50 MEQ/50 ML SYRINGE IV ONE ×2 (16:38→17:12)
[2020-03-04] MEDS ORDERED: VANCOMYCIN 1,250 MG in SODIUM CHLORIDE 0.9% 250ML 250 ML IV ONE (17:00)
[2020-03-04] MEDS ORDERED: HYDROmorphone 1 MG/1 ML INJ ONE (17:13)
[2020-03-04] MEDS: HYDROmorphone 1 MG/1 ML INJ IV PRN (17:19)
--- NOTE | 2020-03-04 18:16 | Vascular Lab Report ---
DUPLEX DOPPLER UPPER EXTREMITY VENOUS, RIGHT INDICATION / CLINICAL INFORMATION: right neck pain and swelling. TECHNIQUE: Duplex doppler imaging was performed through the veins of the right upper extremity using venous comp ression and other maneuvers. COMPARISON: None available. FINDINGS: RIGHT INTERNAL JUGULAR VEIN: Positive for thrombus. RIGHT SUBCLAVIAN VEIN: Negative. RIGHT AXILLARY VEIN: Negative. RIGHT BRACHIAL VEIN: Negative. RIGHT FOREARM VEINS: Negative. RIGHT BASILIC VEIN (SUPERFICIAL): Negative. ADDITIONAL FINDINGS: None. IMPRESSION: 1. Positive for nonocclusive thrombus within the right internal jugular vein. Signer Name: Eb Guerrero MD Signed: 03/04/2020 6:12 PM Workstation Name: [id number]
--- NOTE | 2020-03-04 19:08 | Event Note ---
Date: 03/04/20 Appreciate consult- full consult in AM. Reviewed [place] labs- creatinine 0.7 on 02/19/2020, so with severe TERRY. Suspect due to poor po intake given history, did order renal ultrasound to ensure no obstruction. IVF as tolerated for now.
--- NOTE | 2020-03-04 21:35 | Event Note ---
Date: 03/04/20 Contacted about possible Lemierre syndrome. 74 year old male with right neck/facial cellulitis with right IJ thrombus contacted by ER for possible Lemierre syndrome. If this represents Lemierre syndrome, then patient will need antibiotics and anticoagulation. Explantation of the R IJ for possible septic thrombophlebitis is a morbid procedure and is not first line treatment, but only for refractory symptoms after prolonged antibiotics and anticoagulation. Recommend anticoagulation and antibiotics. Consider infectious disease consult. Anticoagulation would need to be for minimum of 3 months.
[2020-03-05] MEDS: HYDROmorphone 1 MG/1 ML INJ IV PRN ×2 (00:01→09:37)
--- NOTE | 2020-03-05 01:43 | Ultrasound Report ---
ULTRASOUND RENAL INDICATION: TERRY. COMPARISON: No relevant prior imaging study available. FINDINGS: RIGHT KIDNEY: Size: 9.9 cm. Echogenicity: Echogenic. Cortical thickness: 1.5 cm. Hydronephrosis: None. Cyst or mass: Small 1.3 cm simple cyst. Stones: None. LEFT KIDNEY: Size: 9.9 cm. Echogenicity: Echogenic. Cortical thickness: 0.9 cm. Hydronephrosis: None. Cyst or mass: None. Stones: None. Urinary Bladder: Contains Anguiano catheter. Free Fluid: None. Additional Findings: None. IMPRESSION 1. Echogenic kidneys characteristic for medical renal disease. No hydronephrosis. Signer Name: Medhat Hanson MD Signed: 03/05/2020 1:38 AM Workstation Name: [email or web address]
[2020-03-05 05:52] LABS: Hematocrit 31.5 % (35.5-45.6); Hemoglobin 9.8 gm/dl (11.8-15.2); Mean Corpuscular HGB Conc 31 % (32-34); Mean Corpuscular Volume 92 fl (84-94); Platelet Count 584 K/mm3 (140-440); Red Blood Count 3.43 M/mm3 (3.65-5.03); Red Cell Distribution Width 16.2 % (13.2-15.2)
[2020-03-05 05:57] LABS: Lymphocytes # (Auto) 0.5 K/mm3 (1.2-5.4); Lymphocytes % (Auto) 2.2 % (13.4-35.0); Monocytes # (Auto) 1.4 K/mm3 (0.0-0.8); Monocytes % (Auto) 5.4 % (0.0-7.3)
[2020-03-05 06:14] LABS: Albumin 2.4 g/dL (3.9-5); Calcium 8.4 mg/dL (8.4-10.2)
--- NOTE | 2020-03-05 08:06 | Consultation ---
History of Present Illness - Reason for Consult Consult date: 03/05/20 acute renal failure - History of Present Illness This is a 74 y/o male who presents with concerns for sepsis in ED, found to be in altered mentation. Found to have elevated creatinine, sodium with leukocytosis, concern Lemierre's syndrome. Also found to have a clot in the IJ. A CT of neck was done without contrast that showed extensive cellulitis of parotid gland but no mention of IJ thrombosis. This afternoon, patient seen on floor and remains lethargic and unable to provide history. Past History Past Medical History: anemia, hypertension, hypothyroidism, other (See HPI) Past Surgical History: Other (Femur Repari) Social history: , lives with family. denies: smoking, alcohol abuse, prescription drug abuse Family history: hypertension Medications and Allergies Allergies Allergy/AdvReac Type Severity Reaction Status Date / Time duloxetine [From Cymbalta] Allergy Unknown Verified 03/04/20 12:47 lamotrigine [From Lamictal] Allergy Unknown Verified 03/04/20 12:47 milk Allergy Unknown Verified 03/04/20 12:47 ofloxacin Allergy Unknown Verified 03/04/20 12:47 pregabalin [From Lyrica] Allergy Unknown Verified 03/04/20 12:47 Home Medications Medication Instructions Recorded Confirmed Last Taken Type Acetaminophen [Tylenol] 650 mg PO Q6H PRN 03/04/20 03/04/20 Unknown History Aspirin [Adult Aspirin] 81 mg PO DAILY 03/04/20 03/04/20 Unknown History Cholecalciferol (Vitamin D3) 2,000 unit PO QDAY 03/04/20 03/04/20 Unknown History [Vitamin D3 2,000 UNIT CAP] Enoxaparin [Lovenox] 40 mg SQ QDAY 03/04/20 03/04/20 Unknown History HYDROcodone/APAP 5-325 [Neon 1 each PO Q8HR PRN 03/04/20 03/04/20 Unknown History 5/325] LORazepam [Lorazepam] 0.5 mg PO DAILY 03/04/20 03/04/20 Unknown History Lactobacillus Rhamnosus GG 1 each PO QDAY 03/04/20 03/04/20 Unknown History [Culturelle] Levothyroxine [Synthroid] 75 mcg PO QAM 03/04/20 03/04/20 Unknown History Melatonin 1 mg PO QHS 03/04/20 03/04/20 Unknown History Polyethylene Glycol 3350 17 gm PO DAILY PRN 03/04/20 03/04/20 Unknown History [Powderlax] Sertraline [Zoloft] 100 mg PO QDAY 03/04/20 03/04/20 Unknown History Tamsulosin [Flomax] 0.4 mg PO QDAY 03/04/20 03/04/20 Unknown History lisinopriL [Zestril] 20 mg PO QDAY 03/04/20 03/04/20 Unknown History risperiDONE [RisperDAL] 0.25 mg PO QHS 03/04/20 03/04/20 Unknown History Active Meds: Active Medications Acetaminophen (Tylenol) 650 mg PO Q6H PRN PRN Reason: Pain, Mild (1-3) Albuterol (Proventil) 2.5 mg IH Q3HRT PRN PRN Reason: Shortness Of Breath Hydromorphone HCl (Dilaudid) 0.25 mg IV Q4H PRN PRN Reason: Pain, Moderate (4-6) Last Admin: 03/05/20 00:01 Dose: 0.25 mg Documented by: Heparin Sodium/Sodium Chloride (Heparin/ 0.45% Nacl-25,000 Unit/500 Ml) 25,000 unit in 500 mls @ 18 mls/hr IV TITRATE DIPTI; Protocol Last Titration: 03/05/20 06:14 Dose: 1,000 units/hr, 20 mls/hr Documented by: Cefazolin Sodium 2 gm/ Sodium (Chloride) 100 mls @ 200 mls/hr IV Q24HR DIPTI; Protocol Labetalol HCl (Labetalol) 20 mg IV Q6H PRN PRN Reason: Blood Pressure Last Admin: 03/05/20 03:43 Dose: 20 mg Documented by: Sodium Chloride (Sodium Chloride Flush Syringe 10 Ml) 10 ml IV BID DIPTI Last Admin: 03/04/20 23:38 Dose: 10 ml Documented by: Sodium Chloride (Sodium Chloride Flush Syringe 10 Ml) 10 ml IV PRN PRN PRN Reason: LINE FLUSH Review of Systems ROS unobtainable: due to mental status Exam - Vital Signs Vital signs: Vital Signs Temp Pulse Resp BP Pulse Ox 98.2 F 103 H 17 124/82 98 03/04/20 12:46 03/04/20 12:46 03/04/20 12:46 03/04/20 12:46 03/04/20 12:46 - Physical Exam Narrative exam: Constitutional: confused, ill appearing Head: NC/AT Neck: supple Lungs: clear to auscultation CV: RRR, no M/R/G Abdomen: soft, non-tender, bowel sounds present Back: nontender Extremities: no edema, pulses WNL Skin: intact Neuro: lethargic, sleepy Results - Lab Results 03/05/20 05:16 03/05/20 05:16 Most recent lab results Calcium 8.4 mg/dL (8.4-10.2) 03/05/20 05:16 Magnesium 3.40 mg/dL (1.7-2.3) H 03/04/20 13:38 Assessment and Plan # Acute Kidney Injury, Azotemia: suspect pre-renal etiology given history of limited oral intake, overall poor conditioning. Creatinine improved from 5.4- >3.9 with IVF. Renal ultrasound without acute obstruction. Good urine output note - continue IVF as tolerated, continue current IVF - strict Is/Os - avoid nephrotoxins - urinalysis reviewed, defer serologic workup - BP reasonable - no indication for renal replacement therapy currently # Hypernatremia: free water deficit noted, sodium has worsened from 154->160. Currently on D5 1/2NS, continue for now to encourage renal perfusion, will change to free water only once renal function improving # Sepsis: IVF, management per primary, appreciate ID, vasc, pulm # Cellulitis, Concern for Lemierre Syndrome # Acidosis: improving with IVF # Hypoalbuminemia: will check UP/C, likely due to malnutrition. Patient now DNR
[2020-03-05] MEDS: D5W/0.45% NACL 1,000 ML IV SCH ×2 (09:38→22:30)
--- NOTE | 2020-03-05 09:49 | Consultation ---
History of Present Illness - Reason for Consult Consult date: 03/05/20 Requesting physician: MOISES RICKS - History of Present Illness 74 y/o male admitted via the ED with sepsis. Patient had elevated white count of 30k, acute renal failure and what appeared to be severe dehydration. Renal consulted in the ED. IMS felt patient was in impending doom and wanted patient admitted to the ICU. There was also concern of Lemirre's syndrome. The was told there is a clot in the IJ. A CT of neck was done without contrast that showed extensive cellulitis of parotid gland but no mention of IJ thrombosis. He was started on anticoagulation and IV abx. The was also allowed to spend the night secondary her belief that the patient may pass overnight. This AM he is stable, not on pressors not intubated. Past History Past Medical History: anemia, hypertension, hypothyroidism, other (See HPI) Past Surgical History: Other (Femur Repari) Social history: , lives with family. denies: smoking, alcohol abuse, prescription drug abuse Family history: hypertension Medications and Allergies Allergies Allergy/AdvReac Type Severity Reaction Status Date / Time duloxetine [From Cymbalta] Allergy Unknown Verified 03/04/20 12:47 lamotrigine [From Lamictal] Allergy Unknown Verified 03/04/20 12:47 milk Allergy Unknown Verified 03/04/20 12:47 ofloxacin Allergy Unknown Verified 03/04/20 12:47 pregabalin [From Lyrica] Allergy Unknown Verified 03/04/20 12:47 Home Medications Medication Instructions Recorded Confirmed Last Taken Type Acetaminophen [Tylenol] 650 mg PO Q6H PRN 03/04/20 03/04/20 Unknown History Aspirin [Adult Aspirin] 81 mg PO DAILY 03/04/20 03/04/20 Unknown History Cholecalciferol (Vitamin D3) 2,000 unit PO QDAY 03/04/20 03/04/20 Unknown History [Vitamin D3 2,000 UNIT CAP] Enoxaparin [Lovenox] 40 mg SQ QDAY 03/04/20 03/04/20 Unknown History HYDROcodone/APAP 5-325 [[place] 1 each PO Q8HR PRN 03/04/20 03/04/20 Unknown History 5/325] LORazepam [Lorazepam] 0.5 mg PO DAILY 03/04/20 03/04/20 Unknown History Lactobacillus Rhamnosus GG 1 each PO QDAY 03/04/20 03/04/20 Unknown History [Culturelle] Levothyroxine [Synthroid] 75 mcg PO QAM 03/04/20 03/04/20 Unknown History Melatonin 1 mg PO QHS 03/04/20 03/04/20 Unknown History Polyethylene Glycol 3350 17 gm PO DAILY PRN 03/04/20 03/04/20 Unknown History [Powderlax] Sertraline [Zoloft] 100 mg PO QDAY 03/04/20 03/04/20 Unknown History Tamsulosin [Flomax] 0.4 mg PO QDAY 03/04/20 03/04/20 Unknown History lisinopriL [Zestril] 20 mg PO QDAY 03/04/20 03/04/20 Unknown History risperiDONE [RisperDAL] 0.25 mg PO QHS 03/04/20 03/04/20 Unknown History Active Meds: Active Medications Acetaminophen (Tylenol) 650 mg PO Q6H PRN PRN Reason: Pain, Mild (1-3) Albuterol (Proventil) 2.5 mg IH Q3HRT PRN PRN Reason: Shortness Of Breath Hydromorphone HCl (Dilaudid) 0.25 mg IV Q4H PRN PRN Reason: Pain, Moderate (4-6) Last Admin: 03/05/20 09:37 Dose: 0.25 mg Documented by: Heparin Sodium/Sodium Chloride (Heparin/ 0.45% Nacl-25,000 Unit/500 Ml) 25,000 unit in 500 mls @ 18 mls/hr IV TITRATE DIPTI; Protocol Last Titration: 03/05/20 06:14 Dose: 1,000 units/hr, 20 mls/hr Documented by: Cefazolin Sodium 2 gm/ Sodium (Chloride) 100 mls @ 200 mls/hr IV Q24HR DIPTI; Protocol Dextrose/Sodium Chloride (D5/0.45ns) 1,000 mls @ 75 mls/hr IV DIRECT DIPTI Last Admin: 03/05/20 09:38 Dose: 75 mls/hr Documented by: Labetalol HCl (Labetalol) 20 mg IV Q6H PRN PRN Reason: Blood Pressure Last Admin: 03/05/20 03:43 Dose: 20 mg Documented by: Sodium Chloride (Sodium Chloride Flush Syringe 10 Ml) 10 ml IV BID DIPTI Last Admin: 03/05/20 09:37 Dose: 10 ml Documented by: Sodium Chloride (Sodium Chloride Flush Syringe 10 Ml) 10 ml IV PRN PRN PRN Reason: LINE FLUSH Review of Systems ROS unobtainable: due to mental status Exam - Constitutional Vitals: Temp Pulse Resp BP Pulse Ox 97.9 F 90 15 149/78 97 03/05/20 04:00 03/05/20 09:31 03/05/20 09:31 03/05/20 09:31 03/05/20 09:31 - Neck Neck: Present: other (swelling of the right neck, tender, red and warm) - Respiratory Respiratory effort: normal Respiratory: bilateral: CTA - Cardiovascular Rhythm: regular Results - Labs CBC & Chem 7: 03/05/20 05:16 03/05/20 05:16 Labs: Abnormal lab results 03/04/20 03/04/20 03/04/20 Range/Units 13:38 13:38 13:38 WBC 31.9 H (4.5-11.0) K/mm3 RBC 3.59 L (3.65-5.03) M/mm3 Hgb 10.7 L (11.8-15.2) gm/dl Hct 32.5 L (35.5-45.6) % MCHC (32-34) % RDW 16.0 H (13.2-15.2) % Plt Count 724 H (140-440) K/mm3 Lymph % (Auto) (13.4-35.0) % Lymph # (1.2-5.4) K/mm3 [place] # (0.0-0.8) K/mm3 Seg Neuts % (Manual) 91.0 H (40.0-70.0) % Lymphocytes % (Manual) 3.0 L (13.4-35.0) % Nucleated RBC % 1.0 H (0.0-0.9) % Seg Neutrophils # (1.8-7.7) K/mm3 Seg Neutrophils # Man 29.0 H (1.8-7.7) K/mm3 Lymphocytes # (Manual) 1.0 L (1.2-5.4) K/mm3 Monocytes # (Manual) 1.3 H (0.0-0.8) K/mm3 PT 15.6 H (12.2-14.9) Sec. INR 1.21 H (0.87-1.13) Heparin Anti-Xa Level (0.3-0.7) U.I./ml Sodium 154 H (137-145) mmol/L Chloride 111.3 H (98-107) mmol/L Carbon Dioxide 19 L (22-30) mmol/L BUN 143 H (9-20) mg/dL Creatinine 5.4 H (0.8-1.3) mg/dL Glucose 188 H (75-100) mg/dL Magnesium (1.7-2.3) mg/dL AST 51 H (5-40) units/L ALT 60 H (7-56) units/L Alkaline Phosphatase 185 H (35-129) units/L Albumin 3.1 L (3.9-5) g/dL Urine WBC (Auto) (0.0-6.0) /HPF Salicylates (2.8-20.0) mg/dL Acetaminophen (10.0-30.0) ug/mL 03/04/20 03/04/20 03/04/20 Range/Units 13:38 13:38 13:38 WBC (4.5-11.0) K/mm3 RBC (3.65-5.03) M/mm3 Hgb (11.8-15.2) gm/dl Hct (35.5-45.6) % MCHC (32-34) % RDW (13.2-15.2) % Plt Count (140-440) K/mm3 Lymph % (Auto) (13.4-35.0) % Lymph # (1.2-5.4) K/mm3 [place] # (0.0-0.8) K/mm3 Seg Neuts % (Manual) (40.0-70.0) % Lymphocytes % (Manual) (13.4-35.0) % Nucleated RBC % (0.0-0.9) % Seg Neutrophils # (1.8-7.7) K/mm3 Seg Neutrophils # Man (1.8-7.7) K/mm3 Lymphocytes # (Manual) (1.2-5.4) K/mm3 Monocytes # (Manual) (0.0-0.8) K/mm3 PT (12.2-14.9) Sec. INR (0.87-1.13) Heparin Anti-Xa Level (0.3-0.7) U.I./ml Sodium (137-145) mmol/L Chloride (98-107) mmol/L Carbon Dioxide (22-30) mmol/L BUN (9-20) mg/dL Creatinine (0.8-1.3) mg/dL Glucose (75-100) mg/dL Magnesium 3.40 H (1.7-2.3) mg/dL AST (5-40) units/L ALT (7-56) units/L Alkaline Phosphatase (35-129) units/L Albumin (3.9-5) g/dL Urine WBC (Auto) (0.0-6.0) /HPF Salicylates < 0.3 L (2.8-20.0) mg/dL Acetaminophen 5.0 L (10.0-30.0) ug/mL 03/04/20 03/04/20 03/05/20 Range/Units 13:55 22:53 05:16 WBC 25.2 H (4.5-11.0) K/mm3 RBC 3.43 L (3.65-5.03) M/mm3 Hgb 9.8 L (11.8-15.2) gm/dl Hct 31.5 L (35.5-45.6) % MCHC 31 L (32-34) % RDW 16.2 H (13.2-15.2) % Plt Count 584 H (140-440) K/mm3 Lymph % (Auto) 2.2 L (13.4-35.0) % Lymph # 0.5 L (1.2-5.4) K/mm3 [place] # 1.4 H (0.0-0.8) K/mm3 Seg Neuts % (Manual) (40.0-70.0) % Lymphocytes % (Manual) (13.4-35.0) % Nucleated RBC % (0.0-0.9) % Seg Neutrophils # 23.3 H (1.8-7.7) K/mm3 Seg Neutrophils # Man (1.8-7.7) K/mm3 Lymphocytes # (Manual) (1.2-5.4) K/mm3 Monocytes # (Manual) (0.0-0.8) K/mm3 PT (12.2-14.9) Sec. INR (0.87-1.13) Heparin Anti-Xa Level 0.22 L (0.3-0.7) U.I./ml Sodium (137-145) mmol/L Chloride (98-107) mmol/L Carbon Dioxide (22-30) mmol/L BUN (9-20) mg/dL Creatinine (0.8-1.3) mg/dL Glucose (75-100) mg/dL Magnesium (1.7-2.3) mg/dL AST (5-40) units/L ALT (7-56) units/L Alkaline Phosphatase (35-129) units/L Albumin (3.9-5) g/dL Urine WBC (Auto) > 182.0 H (0.0-6.0) /HPF Salicylates (2.8-20.0) mg/dL Acetaminophen (10.0-30.0) ug/mL 03/05/20 03/05/20 Range/Units 05:16 05:16 WBC (4.5-11.0) K/mm3 RBC (3.65-5.03) M/mm3 Hgb (11.8-15.2) gm/dl Hct (35.5-45.6) % MCHC (32-34) % RDW (13.2-15.2) % Plt Count (140-440) K/mm3 Lymph % (Auto) (13.4-35.0) % Lymph # (1.2-5.4) K/mm3 [place] # (0.0-0.8) K/mm3 Seg Neuts % (Manual) (40.0-70.0) % Lymphocytes % (Manual) (13.4-35.0) % Nucleated RBC % (0.0-0.9) % Seg Neutrophils # (1.8-7.7) K/mm3 Seg Neutrophils # Man (1.8-7.7) K/mm3 Lymphocytes # (Manual) (1.2-5.4) K/mm3 Monocytes # (Manual) (0.0-0.8) K/mm3 PT (12.2-14.9) Sec. INR (0.87-1.13) Heparin Anti-Xa Level 0.26 L (0.3-0.7) U.I./ml Sodium 160 H (137-145) mmol/L Chloride 120.7 H (98-107) mmol/L Carbon Dioxide (22-30) mmol/L BUN 129 H (9-20) mg/dL Creatinine 3.9 H (0.8-1.3) mg/dL Glucose 157 H (75-100) mg/dL Magnesium (1.7-2.3) mg/dL AST (5-40) units/L ALT (7-56) units/L Alkaline Phosphatase 164 H (35-129) units/L Albumin 2.4 L (3.9-5) g/dL Urine WBC (Auto) (0.0-6.0) /HPF Salicylates (2.8-20.0) mg/dL Acetaminophen (10.0-30.0) ug/mL - Imaging and Cardiology Chest x-ray: image reviewed Assessment and Plan 74 y/o male with altered mental status, elevated white count and acute renal failure, with right IJ thrombus, nonocclusive. 1. Will obtain Head and Sinus CT 2. Agree with current IV abx therapy and will await ID recs 3. Fluids per renal 4. From a critical care standpoint, stable for transfer to [facility]. Patient is a DNR, signed by and myself this am.
--- NOTE | 2020-03-05 11:10 | Consultation ---
History of Present Illness - Reason for Consult Consult date: 03/05/20 neck cellulitis Requesting physician: MARYCARMEN WEBSTER - History of Present Illness 74 years old male with history of hypertension, hypothyroidism, Alzheimer dementia, resident of a group home after recent fall with subsequent hip fracture and left arm injury, wearing a sling since 02/14/2020. Admitted on 03/04/2020 due to worsening confusion and right neck swelling for 48 hours. Patient is not the best historian, currently he is confused and somnolent. On arrival, temperature 98.2, HR 103, O2 sat 98%, BP 124/82. Initial WBC 31.9. Platelets 724. Sats 91%. Creatinine 5.4. AST 51. ALT 60. Sodium 154. Urinalysis 182 WBCs and large leukocyte esterase. Blood culture 03/04/2020 no g rowth today. Urine culture 03/04/2020+ for 10-100,[address] of the neck with prominent enlargement of the right parotid gland, associated with surrounding cellulitic changes in the parotid region and extending downward along the right lateral aspect of the neck. There is no evidence of fluid collection or abscess. Ultrasound of the neck shows a nonocclusive right IJ thrombus. Review of Systems: Unable to obtain Past History Past Medical History: anemia, hypertension, hypothyroidism, other (See HPI) Past Surgical History: Other (Femur Repari) Social history: , lives with family. denies: smoking, alcohol abuse, prescription drug abuse Family history: hypertension Medications and Allergies Allergies Allergy/AdvReac Type Severity Reaction Status Date / Time duloxetine [From Cymbalta] Allergy Unknown Verified 03/04/20 12:47 lamotrigine [From Lamictal] Allergy Unknown Verified 03/04/20 12:47 milk Allergy Unknown Verified 03/04/20 12:47 ofloxacin Allergy Unknown Verified 03/04/20 12:47 pregabalin [From Lyrica] Allergy Unknown Verified 03/04/20 12:47 Home Medications Medication Instructions Recorded Confirmed Last Taken Type Acetaminophen [Tylenol] 650 mg PO Q6H PRN 03/04/20 03/04/20 Unknown History Aspirin [Adult Aspirin] 81 mg PO DAILY 03/04/20 03/04/20 Unknown History Cholecalciferol (Vitamin D3) 2,000 unit PO QDAY 03/04/20 03/04/20 Unknown History [Vitamin D3 2,000 UNIT CAP] Enoxaparin [Lovenox] 40 mg SQ QDAY 03/04/20 03/04/20 Unknown History HYDROcodone/APAP 5-325 [[place] 1 each PO Q8HR PRN 03/04/20 03/04/20 Unknown History 5/325] LORazepam [Lorazepam] 0.5 mg PO DAILY 03/04/20 03/04/20 Unknown History Lactobacillus Rhamnosus GG 1 each PO QDAY 03/04/20 03/04/20 Unknown History [Culturelle] Levothyroxine [Synthroid] 75 mcg PO QAM 03/04/20 03/04/20 Unknown History Melatonin 1 mg PO QHS 03/04/20 03/04/20 Unknown History Polyethylene Glycol 3350 17 gm PO DAILY PRN 03/04/20 03/04/20 Unknown History [Powderlax] Sertraline [Zoloft] 100 mg PO QDAY 03/04/20 03/04/20 Unknown History Tamsulosin [Flomax] 0.4 mg PO QDAY 03/04/20 03/04/20 Unknown History lisinopriL [Zestril] 20 mg PO QDAY 03/04/20 03/04/20 Unknown History risperiDONE [RisperDAL] 0.25 mg PO QHS 03/04/20 03/04/20 Unknown History Active Meds: Active Medications Acetaminophen (Tylenol) 650 mg PO Q6H PRN PRN Reason: Pain, Mild (1-3) Albuterol (Proventil) 2.5 mg IH Q3HRT PRN PRN Reason: Shortness Of Breath Hydromorphone HCl (Dilaudid) 0.25 mg IV Q4H PRN PRN Reason: Pain, Moderate (4-6) Last Admin: 03/05/20 09:37 Dose: 0.25 mg Documented by: Heparin Sodium/Sodium Chloride (Heparin/ 0.45% Nacl-25,000 Unit/500 Ml) 25,000 unit in 500 mls @ 18 mls/hr IV TITRATE DIPTI; Protocol Last Titration: 03/05/20 06:14 Dose: 1,000 units/hr, 20 mls/hr Documented by: Cefazolin Sodium 2 gm/ Sodium (Chloride) 100 mls @ 200 mls/hr IV Q24HR DIPTI; Protocol Dextrose/Sodium Chloride (D5/0.45ns) 1,000 mls @ 75 mls/hr IV DIRECT DIPTI Last Admin: 03/05/20 09:38 Dose: 75 mls/hr Documented by: Labetalol HCl (Labetalol) 20 mg IV Q6H PRN PRN Reason: Blood Pressure Last Admin: 03/05/20 03:43 Dose: 20 mg Documented by: Sodium Chloride (Sodium Chloride Flush Syringe 10 Ml) 10 ml IV BID DIPTI Last Admin: 03/05/20 09:37 Dose: 10 ml Documented by: Sodium Chloride (Sodium Chloride Flush Syringe 10 Ml) 10 ml IV PRN PRN PRN Reason: LINE FLUSH Physical Examination - Physical Exam Narrative exam: General appearance: Somnolent no acute distress Eyes: anicteric sclerae, moist conjunctivae; no lid-lag; PERRLA HENT: Atraumatic; oropharynx clear with moist mucous membranes and no oral thrush; normal hard and soft palate. Neck: Marked left-sided hard indurated edema of the left cheek, neck and submandibular area, very tender to palpation Lungs: CTA, with normal respiratory effort and no intercostal retractions CV: Tachycardic Abdomen: Soft, non-tender; no masses or hepatosplenomegaly Extremities: no edema, no cyanosis Skin: No rash. Psych: Somnolent Neuro: Somnolent - Constitutional Vitals: Vital Signs Temp Pulse Resp BP Pulse Ox 97.9 F 89 15 145/83 95 03/05/20 04:00 03/05/20 10:00 03/05/20 10:00 03/05/20 10:00 03/05/20 10:00 Temperature -Last 24 Hours Temperature 97.9 F Temperature 98.3 F Temperature 98.1 F Temperature 98.3 F Temperature 99.6 F Temperature 98.2 F Results - Labs CBC & Chem 7: 03/05/20 05:16 03/05/20 05:16 Labs: Abnormal lab results 03/04/20 03/04/20 03/04/20 Range/Units 13:38 13:38 13:38 WBC 31.9 H (4.5-11.0) K/mm3 RBC 3.59 L (3.65-5.03) M/mm3 Hgb 10.7 L (11.8-15.2) gm/dl Hct 32.5 L (35.5-45.6) % MCHC (32-34) % RDW 16.0 H (13.2-15.2) % Plt Count 724 H (140-440) K/mm3 Lymph % (Auto) (13.4-35.0) % Lymph # (1.2-5.4) K/mm3 [place] # (0.0-0.8) K/mm3 Seg Neuts % (Manual) 91.0 H (40.0-70.0) % Lymphocytes % (Manual) 3.0 L (13.4-35.0) % Nucleated RBC % 1.0 H (0.0-0.9) % Seg Neutrophils # (1.8-7.7) K/mm3 Seg Neutrophils # Man 29.0 H (1.8-7.7) K/mm3 Lymphocytes # (Manual) 1.0 L (1.2-5.4) K/mm3 Monocytes # (Manual) 1.3 H (0.0-0.8) K/mm3 PT 15.6 H (12.2-14.9) Sec. INR 1.21 H (0.87-1.13) Heparin Anti-Xa Level (0.3-0.7) U.I./ml Sodium 154 H (137-145) mmol/L Chloride 111.3 H (98-107) mmol/L Carbon Dioxide 19 L (22-30) mmol/L BUN 143 H (9-20) mg/dL Creatinine 5.4 H (0.8-1.3) mg/dL Glucose 188 H (75-100) mg/dL Magnesium (1.7-2.3) mg/dL AST 51 H (5-40) units/L ALT 60 H (7-56) units/L Alkaline Phosphatase 185 H (35-129) units/L Albumin 3.1 L (3.9-5) g/dL Urine WBC (Auto) (0.0-6.0) /HPF Salicylates (2.8-20.0) mg/dL Acetaminophen (10.0-30.0) ug/mL 03/04/20 03/04/20 03/04/20 Range/Units 13:38 13:38 13:38 WBC (4.5-11.0) K/mm3 RBC (3.65-5.03) M/mm3 Hgb (11.8-15.2) gm/dl Hct (35.5-45.6) % MCHC (32-34) % RDW (13.2-15.2) % Plt Count (140-440) K/mm3 Lymph % (Auto) (13.4-35.0) % Lymph # (1.2-5.4) K/mm3 [place] # (0.0-0.8) K/mm3 Seg Neuts % (Manual) (40.0-70.0) % Lymphocytes % (Manual) (13.4-35.0) % Nucleated RBC % (0.0-0.9) % Seg Neutrophils # (1.8-7.7) K/mm3 Seg Neutrophils # Man (1.8-7.7) K/mm3 Lymphocytes # (Manual) (1.2-5.4) K/mm3 Monocytes # (Manual) (0.0-0.8) K/mm3 PT (12.2-14.9) Sec. INR (0.87-1.13) Heparin Anti-Xa Level (0.3-0.7) U.I./ml Sodium (137-145) mmol/L Chloride (98-107) mmol/L Carbon Dioxide (22-30) mmol/L BUN (9-20) mg/dL Creatinine (0.8-1.3) mg/dL Glucose (75-100) mg/dL Magnesium 3.40 H (1.7-2.3) mg/dL AST (5-40) units/L ALT (7-56) units/L Alkaline Phosphatase (35-129) units/L Albumin (3.9-5) g/dL Urine WBC (Auto) (0.0-6.0) /HPF Salicylates < 0.3 L (2.8-20.0) mg/dL Acetaminophen 5.0 L (10.0-30.0) ug/mL 03/04/20 03/04/20 03/05/20 Range/Units 13:55 22:53 05:16 WBC 25.2 H (4.5-11.0) K/mm3 RBC 3.43 L (3.65-5.03) M/mm3 Hgb 9.8 L (11.8-15.2) gm/dl Hct 31.5 L (35.5-45.6) % MCHC 31 L (32-34) % RDW 16.2 H (13.2-15.2) % Plt Count 584 H (140-440) K/mm3 Lymph % (Auto) 2.2 L (13.4-35.0) % Lymph # 0.5 L (1.2-5.4) K/mm3 [place] # 1.4 H (0.0-0.8) K/mm3 Seg Neuts % (Manual) (40.0-70.0) % Lymphocytes % (Manual) (13.4-35.0) % Nucleated RBC % (0.0-0.9) % Seg Neutrophils # 23.3 H (1.8-7.7) K/mm3 Seg Neutrophils # Man (1.8-7.7) K/mm3 Lymphocytes # (Manual) (1.2-5.4) K/mm3 Monocytes # (Manual) (0.0-0.8) K/mm3 PT (12.2-14.9) Sec. INR (0.87-1.13) Heparin Anti-Xa Level 0.22 L (0.3-0.7) U.I./ml Sodium (137-145) mmol/L Chloride (98-107) mmol/L Carbon Dioxide (22-30) mmol/L BUN (9-20) mg/dL Creatinine (0.8-1.3) mg/dL Glucose (75-100) mg/dL Magnesium (1.7-2.3) mg/dL AST (5-40) units/L ALT (7-56) units/L Alkaline Phosphatase (35-129) units/L Albumin (3.9-5) g/dL Urine WBC (Auto) > 182.0 H (0.0-6.0) /HPF Salicylates (2.8-20.0) mg/dL Acetaminophen (10.0-30.0) ug/mL 03/05/20 03/05/20 Range/Units 05:16 05:16 WBC (4.5-11.0) K/mm3 RBC (3.65-5.03) M/mm3 Hgb (11.8-15.2) gm/dl Hct (35.5-45.6) % MCHC (32-34) % RDW (13.2-15.2) % Plt Count (140-440) K/mm3 Lymph % (Auto) (13.4-35.0) % Lymph # (1.2-5.4) K/mm3 [place] # (0.0-0.8) K/mm3 Seg Neuts % (Manual) (40.0-70.0) % Lymphocytes % (Manual) (13.4-35.0) % Nucleated RBC % (0.0-0.9) % Seg Neutrophils # (1.8-7.7) K/mm3 Seg Neutrophils # Man (1.8-7.7) K/mm3 Lymphocytes # (Manual) (1.2-5.4) K/mm3 Monocytes # (Manual) (0.0-0.8) K/mm3 PT (12.2-14.9) Sec. INR (0.87-1.13) Heparin Anti-Xa Level 0.26 L (0.3-0.7) U.I./ml Sodium 160 H (137-145) mmol/L Chloride 120.7 H (98-107) mmol/L Carbon Dioxide (22-30) mmol/L BUN 129 H (9-20) mg/dL Creatinine 3.9 H (0.8-1.3) mg/dL Glucose 157 H (75-100) mg/dL Magnesium (1.7-2.3) mg/dL AST (5-40) units/L ALT (7-56) units/L Alkaline Phosphatase 164 H (35-129) units/L Albumin 2.4 L (3.9-5) g/dL Urine WBC (Auto) (0.0-6.0) /HPF Salicylates (2.8-20.0) mg/dL Acetaminophen (10.0-30.0) ug/mL Assessment and Plan Cultures: Blood culture 03/04/2020 no growth today. Urine culture 03/04/2020 10-100,000 CFU normal skin joseph. Assessment: 74 years old male with history of hypertension, hypothyroidism, Alzheimer dementia, resident of a group home after recent fall with subsequent hip fracture and left arm injury, wearing a sling since 02/14/2020. Admitted on 03/04/2020 due to worsening confusion and right neck swelling for 48 hours: #Severe sepsis: Present on admission with tachycardia, high leukocytosis, acute kidney injury, elevated LFTs, secondary to acute likely suppurative right parotitis +/-UTI. #Acute right likely suppurative parotitis: Patient at high risk given age, dehydration and use of anticholinergic agents. CT of the neck with prominent enlargement of the right parotid gland, associated with surrounding cellulitic changes in the parotid region and extending downward along the right lateral aspect of the neck. There is no evidence of fluid collection or abscess. In the setting this could be secondary to MRSA or oral anaerobes. 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 Usually related to an IV catheter. It is not a common presentation of acute parotitis. #Acute UTI: Urine cultures growing normal skin joseph. #Transaminitis: Likely secondary to sepsis. #Reactive thrombocytosis: Secondary to sepsis. #Acute encephalopathy: Likely secondary to sepsis. #Acute kidney injury: Secondary to sepsis, already improving Recommendations: -Follow-up blood cultures -Continue vancomycin with PK consult -renally adjusted -Stop cefazolin -Start Unasyn IV for now -renally adjusted -Warm compresses to the right buttock thigh -Anticoagulation per primary team -check CRP Will follow. Sofia Peterson MD Infectious Diseases [facility] M [phone] O [phone]
[2020-03-05] MEDS ORDERED: AMPICILLIN/SULBACTA 3GM/100ML 3 GM/100 ML BAG IV SCH (12:00)
[2020-03-05] MEDS: AMPICILLIN/SULBACTA 3GM/100ML 3 GM/100 ML BAG IV SCH (13:26)
--- NOTE | 2020-03-05 13:41 | Progress Note ---
Assessment and Plan Assessment and plan: HPI on admission 74 YO Male Usp Facility Resident at [facility] with HTN, Hypothyroidism, Alzheimers Dementia with A FAST Score of 7E and PPS of 30% who is currently bedbound and requires 6/6 assistance with activities of daily living, Debility presents to ED for evaluation. Patient is nonverbal, lethargic and is unable to provide history at the time of my evaluation. Patient is at bedside during exam and interview and provides history. As per the patient has experienced a rapid decline in his state of health after suffering a fall complicated by hip fracture on February 13. Patient reports increased confusion as well as right neck swelling over the past 2 days with progressively worsening symptoms over the same timeframe. EMS was notified and upon arrival the patient was found to be in distress and subsequently transported to [facility] for further care and evaluation of the aforementioned symptoms. Patient seen and evaluated in the emergency department. Lab and imaging studies reviewed. 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 Patient admitted to ICU due to increased risk of multisystem decompensation. Vascular surgery service consulted in the emergency department and the patient is initiated on a heparin drip. Patient found to have poor prognosis. Advanced care planning conducted in ED. Patient prognosis discussed with . Patient acknowledges understanding and agreement with care plan. Patient is confused and lethargic at the time of my evaluation but the patient has a positive gag reflex and is able to protect his airway without difficulty. 03/05. Spouse at bedside. He responds when called. ID consulted for sepsis 2/2 cellulitis vs parotitis. He is on anticoagulation. Maintained on antibiotics. He still has tom on left hip and will need to have this removed. Had hip replacement 02/14. Will get ortho for this. Discussed with spouse at bedside. (1) Sepsis Current Visit: Yes Status: Acute Qualifiers: Severe sepsis acute organ dysfunction type: acute renal failure Plan to address problem: Sepsis protocol: Admit to ICU, CBC, CMP, chest x-ray, urinalysis, IV fluid resuscitation therapy, IV antibiotic therapy, serial lactic acid level, maintain mean arterial blood pressure greater than or equal to 65, monitor urine output every shift. Critical care team consulted. The high probability of a clinically significant, sudden or life threatening deterioration of the [neuro, cardiac, pulmonary, renal, infectious disease, hematologic, vascular] system(s) required my full and direct attention, intervention and personal management. The aggregate critical care time was [95] minutes. This time is in addition to time spent performing reported procedures but includes the following: [x] Data Review and interpretation [x] Patient assessment and monitoring of vital signs [x] Documentation [x] Medication orders and management (2) Toxic metabolic encephalopathy Current Visit: Yes Status: Acute Plan to address problem: CT head, neuro check, treat sepsis, IV fluid resuscitation therapy, supportive care. (3) Acute kidney injury with acute tubular necrosis Current Visit: Yes Status: Acute Plan to address problem: IV fluid resuscitation therapy, monitor urine output every shift, nephrology t eam consulted in ED. Avoid nephrotoxic agents. (4) Urinary tract infection Current Visit: Yes Status: Acute Qualifiers: Encounter type: initial encounter Plan to address problem: CBC, CMP, urinalysis, IV antibiotic therapy. (5) Lemierre syndrome Current Visit: Yes Status: Acute Plan to address problem: Vascular surgery service consulted in ED, CT scan of the neck, heparin drip, supportive care. (6) Cellulitis, neck Current Visit: Yes Status: Acute Plan to address problem: CBC, BMP, IV antibiotic therapy. ID consulted (7) Volume depletion Current Visit: Yes Status: Acute Plan to address problem: IV fluid resuscitation therapy, monitor urine output she every shift. Monitor fluid balance. Repeat BMP in a.m. (8) Metabolic acidosis Current Visit: Yes Status: Acute Plan to address problem: Serial lactic acid level, BMP, IV bicarbonate therapy. Supportive care. (9) DVT prophylaxis Current Visit: Yes Status: Acute Plan to address problem: SCD to bilateral lower extremities while in bed, continue therapeutic anticoagulation (10) Advance care planning Current Visit: Yes Status: Acute Plan to address problem: Disease education conducted, prognosis discussed. Patient is full code. Parmjit dixon has very poor prognosis. Patient's acknowledges understanding and agreement with care plan, +30 minutes. History Interval history: Patient seen and examined at bedside this morning. Responds when called. Spouse at bedside. ID consulted Hospitalist Physical - Constitutional Vitals: Temp Pulse Resp BP Pulse Ox 98.6 F 88 20 151/80 97 03/05/20 12:00 03/05/20 13:00 03/05/20 13:00 03/05/20 13:00 03/05/20 13:00 General appearance: Present: mild distress - EENT Eyes: Present: PERRL - Neck Neck: Present: other (Right-sided swelling with tenderness) - Respiratory Respiratory: bilateral: CTA - Cardiovascular Rhythm: regular Heart Sounds: Present: S1 & S2 - Extremities Extremities: No edema - Abdominal General gastrointestinal: soft, non-tender, non-distended, normal bowel sounds - Psychiatric Psychiatric: other (limited due to underlying dementia) - Neurologic Neurologic: CNII-XII intact Results - Labs CBC & Chem 7: 03/05/20 05:16 03/05/20 05:16 Labs: Laboratory Last Values WBC 25.2 K/mm3 (4.5-11.0) H 03/05/20 05:16 RBC 3.43 M/mm3 (3.65-5.03) L 03/05/20 05:16 Hgb 9.8 gm/dl (11.8-15.2) L 03/05/20 05:16 Hct 31.5 % (35.5-45.6) L 03/05/20 05:16 MCV 92 fl (84-94) 03/05/20 05:16 MCH 29 pg (28-32) 03/05/20 05:16 MCHC 31 % (32-34) L 03/05/20 05:16 RDW 16.2 % (13.2-15.2) H 03/05/20 05:16 Plt Count 584 K/mm3 (140-440) H 03/05/20 05:16 Lymph % (Auto) 2.2 % (13.4-35.0) L 03/05/20 05:16 [place] % (Auto) 5.4 % (0.0-7.3) 03/05/20 05:16 Eos % (Auto) 0.0 % (0.0-4.3) 03/05/20 05:16 Baso % (Auto) 0.0 % (0.0-1.8) 03/05/20 05:16 Lymph # 0.5 K/mm3 (1.2-5.4) L 03/05/20 05:16 [place] # 1.4 K/mm3 (0.0-0.8) H 03/05/20 05:16 Eos # 0.0 K/mm3 (0.0-0.4) 03/05/20 05:16 Baso # 0.0 K/mm3 (0.0-0.1) 03/05/20 05:16 Add Manual Diff Complete 03/04/20 13:38 Total Counted 100 03/04/20 13:38 Seg Neutrophils % Auto Service Advisor 03/05/20 05:16 Seg Neuts % (Manual) 91.0 % (40.0-70.0) H 03/04/20 13:38 Band Neutrophils % 2.0 % 03/04/20 13:38 Lymphocytes % (Manual) 3.0 % (13.4-35.0) L 03/04/20 13:38 Reactive Lymphs % (Man) 0 % 03/04/20 13:38 Monocytes % (Manual) 4.0 % (0.0-7.3) 03/04/20 13:38 Eosinophils % (Manual) 0 % (0.0-4.3) 03/04/20 13:38 Basophils % (Manual) 0 % (0.0-1.8) 03/04/20 13:38 Metamyelocytes % 0 % 03/04/20 13:38 Myelocytes % 0 % 03/04/20 13:38 Promyelocytes % 0 % 03/04/20 13:38 Blast Cells % 0 % 03/04/20 13:38 Nucleated RBC % 1.0 % (0.0-0.9) H 03/04/20 13:38 Seg Neutrophils # 23.3 K/mm3 (1.8-7.7) H 03/05/20 05:16 Seg Neutrophils # Man 29.0 K/mm3 (1.8-7.7) H 03/04/20 13:38 Band Neutrophils # 0.6 K/mm3 03/04/20 13:38 Lymphocytes # (Manual) 1.0 K/mm3 (1.2-5.4) L 03/04/20 13:38 Abs React Lymphs (Man) 0.0 K/mm3 03/04/20 13:38 Monocytes # (Manual) 1.3 K/mm3 (0.0-0.8) H 03/04/20 13:38 Eosinophils # (Manual) 0.0 K/mm3 (0.0-0.4) 03/04/20 13:38 Basophils # (Manual) 0.0 K/mm3 (0.0-0.1) 03/04/20 13:38 Metamyelocytes # 0.0 K/mm3 03/04/20 13:38 Myelocytes # 0.0 K/mm3 03/04/20 13:38 Promyelocytes # 0.0 K/mm3 03/04/20 13:38 Blast Cells # 0.0 K/mm3 03/04/20 13:38 WBC Morphology Not Reportable 03/04/20 13:38 Hypersegmented Neuts Not Reportable 03/04/20 13:38 Hyposegmented Neuts Not Reportable 03/04/20 13:38 Hypogranular Neuts Not Reportable 03/04/20 13:38 Smudge Cells Not Reportable 03/04/20 13:38 Toxic Granulation Not Reportable 03/04/20 13:38 Toxic Vacuolation Not Reportable 03/04/20 13:38 Dohle Bodies Not Reportable 03/04/20 13:38 Pelger-Huet Anomaly Not Reportable 03/04/20 13:38 Armand Rods Not Reportable 03/04/20 13:38 Platelet Estimate Consistent w auto 03/04/20 13:38 Clumped Platelets Not Reportable 03/04/20 13:38 Plt Clumps, EDTA Not Reportable 03/04/20 13:38 Large Platelets Not Reportable 03/04/20 13:38 Giant Platelets Not Reportable 03/04/20 13:38 Platelet Satelliting Not Reportable 03/04/20 13:38 Plt Morphology Comment Not Reportable 03/04/20 13:38 RBC Morphology Not Reportable 03/04/20 13:38 Dimorphic RBCs Not Reportable 03/04/20 13:38 Polychromasia Not Reportable 03/04/20 13:38 Hypochromasia Not Reportable 03/04/20 13:38 Poikilocytosis Not Reportable 03/04/20 13:38 Anisocytosis Few 03/04/20 13:38 Microcytosis Not Reportable 03/04/20 13:38 Macrocytosis Few 03/04/20 13:38 Spherocytes Not Reportable 03/04/20 13:38 Pappenheimer Bodies Not Reportable 03/04/20 13:38 Sickle Cells Not Reportable 03/04/20 13:38 Target Cells Not Reportable 03/04/20 13:38 Tear Drop Cells Not Reportable 03/04/20 13:38 Ovalocytes Not Reportable 03/04/20 13:38 Helmet Cells Not Reportable 03/04/20 13:38 Russell-Kensett Bodies Not Reportable 03/04/20 13:38 Buckhead Rings Not Reportable 03/04/20 13:38 Jimmy Cells Not Reportable 03/04/20 13:38 Bite Cells Not Reportable 03/04/20 13:38 Crenated Cell Not Reportable 03/04/20 13:38 Elliptocytes Not Reportable 03/04/20 13:38 Acanthocytes (Spur) Not Reportable 03/04/20 13:38 Rouleaux Not Reportable 03/04/20 13:38 Hemoglobin C Crystals Not Reportable 03/04/20 13:38 Schistocytes Not Reportable 03/04/20 13:38 Malaria parasites Not Reportable 03/04/20 13:38 Torsten Bodies Not Reportable 03/04/20 13:38 Hem Pathologist Commnt No 03/04/20 13:38 PT 15.6 Sec. (12.2-14.9) H 03/04/20 13:38 INR 1.21 (0.87-1.13) H 03/04/20 13:38 APTT 33.0 Sec. (24.2-36.6) 03/04/20 13:38 Heparin Anti-Xa Level 0.26 U.I./ml (0.3-0.7) L 03/05/20 05:16 Sodium 160 mmol/L (137-145) H 03/05/20 05:16 Potassium 3.6 mmol/L (3.6-5.0) 03/05/20 05:16 Chloride 120.7 mmol/L (98-107) H 03/05/20 05:16 Carbon Dioxide 23 mmol/L (22-30) 03/05/20 05:16 Anion Gap 21 mmol/L 03/05/20 05:16 BUN 129 mg/dL (9-20) H 03/05/20 05:16 Creatinine 3.9 mg/dL (0.8-1.3) H 03/05/20 05:16 Estimated GFR 18 ml/min 03/05/20 05:16 BUN/Creatinine Ratio 33 % 03/05/20 05:16 Glucose 157 mg/dL (75-100) H 03/05/20 05:16 Lactic Acid 1.40 mmol/L (0.7-2.0) 03/05/20 05:16 Calcium 8.4 mg/dL (8.4-10.2) 03/05/20 05:16 Magnesium 3.40 mg/dL (1.7-2.3) H 03/04/20 13:38 Total Bilirubin 0.40 mg/dL (0.1-1.2) 03/05/20 05:16 AST 26 units/L (5-40) 03/05/20 05:16 ALT 39 units/L (7-56) 03/05/20 05:16 Alkaline Phosphatase 164 units/L (35-129) H 03/05/20 05:16 Total Creatine Kinase 82 units/L (55-170) 03/04/20 13:38 Total Protein 7.1 g/dL (6.3-8.2) 03/05/20 05:16 Albumin 2.4 g/dL (3.9-5) L 03/05/20 05:16 Albumin/Globulin Ratio 0.5 % 03/05/20 05:16 Urine Color [place] (Yellow) 03/04/20 13:55 Urine Turbidity Turbid (Clear) 03/04/20 13:55 Urine pH 5.0 (5.0-7.0) 03/04/20 13:55 Ur Specific [place] 1.017 (1.003-1.030) 03/04/20 13:55 Urine Protein 30 mg/dl mg/dL (Negative) 03/04/20 13:55 Urine Glucose (UA) Neg mg/dL (Negative) 03/04/20 13:55 Urine Ketones Neg mg/dL (Negative) 03/04/20 13:55 Urine Blood Sm (Negative) 03/04/20 13:55 Urine Nitrite Neg (Negative) 03/04/20 13:55 Urine Bilirubin Neg (Negative) 03/04/20 13:55 Urine Urobilinogen < 2.0 mg/dL (<2.0) 03/04/20 13:55 Ur Leukocyte Esterase Lg (Negative) 03/04/20 13:55 Urine WBC (Auto) > 182.0 /HPF (0.0-6.0) H 03/04/20 13:55 Urine RBC (Auto) 31.0 /HPF (0.0-6.0) 03/04/20 13:55 U Epithel Cells (Auto) 1.0 /HPF (0-13.0) 03/04/20 13:55 Urine Bacteria (Auto) 4+ /HPF (Negative) 03/04/20 13:55 Ur Transition Epith Cell 5 /HPF 03/04/20 13:55 Urine Mucus Few /HPF 03/04/20 13:55 Salicylates < 0.3 mg/dL (2.8-20.0) L 03/04/20 13:38 Acetaminophen 5.0 ug/mL (10.0-30.0) L 03/04/20 13:38 Blood Type A POSITIVE 03/04/20 16:15 Antibody Screen Negative 03/04/20 16:15 Microbiology: Microbiology 03/04/20 13:38 Peripheral/Venous Blood Culture - Preliminary 03/04/20 Unknown Urine,Catheterized - Indwelling Catheter Urine Culture - Preliminary 03/04/20 13:38 Peripheral/Venous Blood Culture - Preliminary Culture in Progress Anguiano/IV: Voiding Method Indwelling Catheter IV Catheter Type [Right Hand] Peripheral IV IV Catheter Type [Right INT / Saline Lock Forearm] Active Medications - Current Medications Current Medications: Generic Name Dose Route Start Last Admin Trade Name Freq PRN Reason Stop Dose Admin Acetaminophen 650 mg 03/04/20 15:51 Tylenol PO Q6H PRN Pain, Mild (1-3) Albuterol 2.5 mg 03/04/20 15:51 Proventil IH Q3HRT PRN Shortness Of Breath Hydromorphone HCl 0.25 mg 03/04/20 15:51 03/05/20 09:37 Dilaudid IV 0.25 mg Q4H PRN Administration Pain, Moderate (4-6) Heparin Sodium/Sodium Chloride 25,000 unit in 500 mls @ 18 mls/hr 03/04/20 16:00 03/05/20 06:14 Heparin/ 0.45% Nacl-25,000 Unit/500 Ml IV 1,000 units/hr TITRATE DIPTI 20 mls/hr Titration Protocol 900 UNITS/HR Dextrose/Sodium Chloride 1,000 mls @ 75 mls/hr 03/05/20 09:00 03/05/20 09:38 D5/0.45ns IV 75 mls/hr DIRECT DIPTI Administration Ampicillin Sodium/Sulbactam Sodium 3 gm in 100 mls @ 200 mls/hr 03/05/20 13:00 03/05/20 13:26 Unasyn/Ns 3 Gm/100 Ml IV 200 mls/hr Q12H DIPTI Administration Labetalol HCl 20 mg 03/05/20 03:05 03/05/20 03:43 Labetalol IV 20 mg Q6H PRN Administration Blood Pressure Sodium Chloride 10 ml 03/04/20 22:00 03/05/20 09:37 Sodium Chloride Flush Syringe 10 Ml IV 10 ml BID DIPTI Administration Sodium Chloride 10 ml 03/04/20 15:51 Sodium Chloride Flush Syringe 10 Ml IV PRN PRN LINE FLUSH
--- NOTE | 2020-03-05 15:07 | Cat Scan Report ---
CT FACE HISTORY: Facial swelling COMPARISON: None. TECHNIQUE: Axial images of the face were obtained. Coronal and sagittal reformats were generated.All CT scans at this location are performed using CT dose reduction for ALARA by means of automated expo sure control CONTRAST: None. FINDINGS: Soft tissue swelling is seen in the right cheek. Did not cover this area completely. Subcutaneous str anding seen lateral to the right masseter muscle. Stensen's duct is normal. Right parotid gland is swollen and has increased is CT patient. In the visualized portions of the par otid gland, I do not see radiopaque calculi. These images, no adenopathy is seen. Incidentally, torus palatini is seen. IMPRESSION: Right side of the face is swollen; we did not image the right side of the face 20 Soft tissue swelling over the right masseter muscle; right parotid gland appears prominent with incre ased CT attenuation Please obtain contrast-enhanced CT scan covering the entire face on MRI scan. Signer Name: Su Moran MD Signed: 03/05/2020 3:03 PM Workstation Name: [id number]
--- NOTE | 2020-03-05 16:17 | Consultation ---
History of Present Illness - Reason for Consult Consult date: 03/05/20 Lemierre syndrome Requesting physician: HEIDY SMITH - History of Present Illness 74 YO Male Usp Facility Resident at [facility] with HTN, Hypothyroidism, Alzheimers Dementia with A FAST Score of 7E and PPS of 30% who is currently bedbound and requires 6/6 assistance with activities of daily living, Debility presents to ED for evaluation. Patient is nonverbal, lethargic and is unable to provide history at the time of my evaluation. Patient is at bedside during exam and interview and provides history. As per the patient has experienced a rapid decline in his state of health after suffering a fall complicated by hip fracture on February 13. Patient reports increased confusion as well as right neck swelling over the past 2 days with progressively worsening symptoms over the same timeframe. EMS was notified and upon arrival the patient was found to be in distress and subsequently transported to [facility] for further care and evaluation of the aforementioned symptoms. Patient seen and evaluated in the emergency department. Lab and imaging studies reviewed. 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 Patient admitted to ICU due to increased risk of multisystem decompensation. Vascular surgery service consulted in the emergency department and the patient is initiated on a heparin drip. Patient found to have poor prognosis. Advanced care planning conducted in ED. Patient prognosis discussed with . Patient acknowledges understanding and agreement with care plan. Patient is confused and lethargic at the time of my evaluation but the patient has a positive gag reflex and is able to protect his airway without difficulty. Vascular consulted for possible septic thrombophlebitis of the right internal jugular vein. On exam, patient is nonverbal, lethargic, and does not provide any history. He has swelling and erythema over the right parotid gland/facial region and had a sling supporting his left arm which was directly compressing his right internal jugular vein. He has warm and well-perfused arms and legs with palpable radial pulses and palpable left dorsalis pedis pulse with possibly palpable right posterior tibial pulse. Difficult to determine if right posterior tibial pulse is due to palpations or patient's rhythmic jerking. Past History Past Medical History: anemia, hypertension, hypothyroidism, other (See HPI) Past Surgical History: Other (Femur Repari) Social history: , lives with family. denies: smoking, alcohol abuse, prescription drug abuse Family history: hypertension Medications and Allergies Allergies Allergy/AdvReac Type Severity Reaction Status Date / Time duloxetine [From Cymbalta] Allergy Unknown Verified 03/04/20 12:47 lamotrigine [From Lamictal] Allergy Unknown Verified 03/04/20 12:47 milk Allergy Unknown Verified 03/04/20 12:47 ofloxacin Allergy Unknown Verified 03/04/20 12:47 pregabalin [From Lyrica] Allergy Unknown Verified 03/04/20 12:47 Home Medications Medication Instructions Recorded Confirmed Last Taken Type Acetaminophen [Tylenol] 650 mg PO Q6H PRN 03/04/20 03/04/20 Unknown History Aspirin [Adult Aspirin] 81 mg PO DAILY 03/04/20 03/04/20 Unknown History Cholecalciferol (Vitamin D3) 2,000 unit PO QDAY 03/04/20 03/04/20 Unknown History [Vitamin D3 2,000 UNIT CAP] Enoxaparin [Lovenox] 40 mg SQ QDAY 03/04/20 03/04/20 Unknown History HYDROcodone/APAP 5-325 [[place] 1 each PO Q8HR PRN 03/04/20 03/04/20 Unknown History 5/325] LORazepam [Lorazepam] 0.5 mg PO DAILY 03/04/20 03/04/20 Unknown History Lactobacillus Rhamnosus GG 1 each PO QDAY 03/04/20 03/04/20 Unknown History [Culturelle] Levothyroxine [Synthroid] 75 mcg PO QAM 03/04/20 03/04/20 Unknown History Melatonin 1 mg PO QHS 03/04/20 03/04/20 Unknown History Polyethylene Glycol 3350 17 gm PO DAILY PRN 03/04/20 03/04/20 Unknown History [Powderlax] Sertraline [Zoloft] 100 mg PO QDAY 03/04/20 03/04/20 Unknown History Tamsulosin [Flomax] 0.4 mg PO QDAY 03/04/20 03/04/20 Unknown History lisinopriL [Zestril] 20 mg PO QDAY 03/04/20 03/04/20 Unknown History risperiDONE [RisperDAL] 0.25 mg PO QHS 03/04/20 03/04/20 Unknown History Active Meds: Active Medications Hydromorphone HCl (Dilaudid) 0.25 mg IV Q4H PRN PRN Reason: Pain, Moderate (4-6) Last Admin: 03/05/20 09:37 Dose: 0.25 mg Documented by: Heparin Sodium/Sodium Chloride (Heparin/ 0.45% Nacl-25,000 Unit/500 Ml) 25,000 unit in 500 mls @ 18 mls/hr IV TITRATE DIPTI; Protocol Last Titration: 03/05/20 06:14 Dose: 1,000 units/hr, 20 mls/hr Documented by: Dextrose/Sodium Chloride (D5/0.45ns) 1,000 mls @ 75 mls/hr IV DIRECT DIPTI Last Admin: 03/05/20 09:38 Dose: 75 mls/hr Documented by: Ampicillin Sodium/Sulbactam Sodium (Unasyn/Ns 3 Gm/100 Ml) 3 gm in 100 mls @ 200 mls/hr IV Q12H DIPTI Last Admin: 03/05/20 13:26 Dose: 200 mls/hr Documented by: Labetalol HCl (Labetalol) 20 mg IV Q6H PRN PRN Reason: Blood Pressure Last Admin: 03/05/20 03:43 Dose: 20 mg Documented by: Sodium Chloride (Sodium Chloride Flush Syringe 10 Ml) 10 ml IV BID DIPTI Last Admin: 03/05/20 09:37 Dose: 10 ml Documented by: Sodium Chloride (Sodium Chloride Flush Syringe 10 Ml) 10 ml IV PRN PRN PRN Reason: LINE FLUSH Review of Systems ROS unobtainable: due to mental status Exam - Constitutional Vitals: Temp Pulse Resp BP Pulse Ox 98.2 F 82 20 161/78 100 03/05/20 14:50 03/05/20 14:50 03/05/20 14:50 03/05/20 14:50 03/05/20 14:50 General appearance: Present: other (Nonverbal) - EENT Eyes: Present: EOM intact ENT: other (Right facial swelling with erythema) - Neck Neck: Present: other (Left arm sling compressing right neck/internal jugular region) - Respiratory Respiratory effort: other (Audible wheezes and rhonchi) - Extremities Extremities: normal temperature, normal color - Psychiatric Psychiatric: other (Nonverbal) Results - Labs CBC & Chem 7: 09/22/20 05:16 03/05/20 05:16 Labs: Abnormal lab results 03/04/20 03/05/20 03/05/20 Range/Units 22:53 05:16 05:16 WBC 25.2 H (4.5-11.0) K/mm3 RBC 3.43 L (3.65-5.03) M/mm3 Hgb 9.8 L (11.8-15.2) gm/dl Hct 31.5 L (35.5-45.6) % MCHC 31 L (32-34) % RDW 16.2 H (13.2-15.2) % Plt Count 584 H (140-440) K/mm3 Lymph % (Auto) 2.2 L (13.4-35.0) % Lymph # 0.5 L (1.2-5.4) K/mm3 Garza # 1.4 H (0.0-0.8) K/mm3 Seg Neutrophils # 23.3 H (1.8-7.7) K/mm3 Heparin Anti-Xa Level 0.22 L (0.3-0.7) U.I./ml Sodium 160 H (137-145) mmol/L Chloride 120.7 H (98-107) mmol/L BUN 129 H (9-20) mg/dL Creatinine 3.9 H (0.8-1.3) mg/dL Glucose 157 H (75-100) mg/dL Alkaline Phosphatase 164 H (35-129) units/L Albumin 2.4 L (3.9-5) g/dL 03/05/20 03/05/20 Range/Units 05:16 14:42 WBC (4.5-11.0) K/mm3 RBC (3.65-5.03) M/mm3 Hgb (11.8-15.2) gm/dl Hct (35.5-45.6) % MCHC (32-34) % RDW (13.2-15.2) % Plt Count (140-440) K/mm3 Lymph % (Auto) (13.4-35.0) % Lymph # (1.2-5.4) K/mm3 Garza # (0.0-0.8) K/mm3 Seg Neutrophils # (1.8-7.7) K/mm3 Heparin Anti-Xa Level 0.26 L 0.10 L (0.3-0.7) U.I./ml Sodium (137-145) mmol/L Chloride (98-107) mmol/L BUN (9-20) mg/dL Creatinine (0.8-1.3) mg/dL Glucose (75-100) mg/dL Alkaline Phosphatase (35-129) units/L Albumin (3.9-5) g/dL - Imaging and Cardiology Venous US: report reviewed, image reviewed Assessment and Plan 74-year-old male who has multiple medical issues who presents with leukocytosis, right parotitis, right facial and lower neck erythema, and right internal jugular vein thrombus. Unclear the etiology of the right internal jugular vein thrombus as the left arm sling was directly compressing the right neck, possibly resulting in compression and possible thrombosis due to obstruction. The sling was subsequently repositioned to not put pressure on his right neck. Patient will need to be anticoagulated for right internal jugular vein thrombus. 3-month anticoagulation recommended at minimum. At that time, based on patient's mobility status, may need lifelong anticoagulation if his mobility does not improve. Patient has right facial swelling/parotitis/possible cellulitis, with no fluid collections noted on CT scan as of now. May need to have further imaging with contrast-enhanced MRI. If fluid collection identified, may need ENT evaluation. Agree with antibiotics. No definite evidence of septic thrombophlebitis, no need for surgical ligation and explantation of internal jugular vein. Recommend antibiotics.
--- NOTE | 2020-03-05 16:19 | Cat Scan Report ---
NONENHANCED CT SCAN OF THE HEAD: INDICATION / CLINICAL INFORMATION: 74 years Male; facial swelling. TECHNIQUE: Routine CT head without contrast. All CT scans at this location are performed using CT dos e reduction for ALARA by means of automated exposure control. COMPARISON: None. FINDINGS: Superficial lobe of the right parotid gland is markedly swollen. Right parotid capsule is thickened. Adjacent inflammatory changes are seen. Subcutaneous stranding and thickening of the overlying skin a re seen. No radiopaque calculus is seen in the parotid gland. However, in the right Stensen's duct, t here is radiopaque calculus in the buccal space. Unfortunately, artifacts from the dental braces are obscuring the details. I am unable to confirm this finding in the sagittal and coronal reformatted images. Left parotid gland and the submandibular glands are normal. BRAIN / INTRACRANIAL CONTENTS: No acute hemorrhage, mass effect, midline shift, hydrocephalus, or ac [place], large territorial infarct. No chronic infarct or focal atrophy. Lateral ventricles and third elva tricle are disproportionately large compared to high convexity cortical sulci. Temporal horn tips are also markedly dilated suggesting volume loss in the medial temporal lobes. No chronic infarct of the parasagittal cortical sulci. Cardiomegaly is probably due to deep central involution. CRANIOCERVICAL JUNCTION: No significant abnormality. ORBITS: No significant abnormality of visualized orbits. SINUSES / MASTOIDS: No significant abnormality of the visualized paranasal sinuses or mastoid air karishma ls. ADDITIONAL FINDINGS: None. IMPRESSION: Significant swelling of the superficial lobe of right parotid gland; thickened the right parotid caps ule; inflammatory changes in the subcutaneous tissue around the right parotid gland; suspicious of r adiopaque calculus in the right Stensen's duct at the buccal space; because of the artifacts from the dental braces, I am unable to confirm this in the coronal and sagittal planes. Signer Name: Su Moran MD Signed: 03/05/2020 4:15 PM Workstation Name: [id number]
[2020-03-05] MEDS: HEPARIN/ 0.45% NACL DRIP 25,000 UNIT/500 ML BAG IV SCH (17:19)
[2020-03-06] MEDS: AMPICILLIN/SULBACTA 3GM/100ML 3 GM/100 ML BAG IV SCH ×2 (00:11→16:14)
[2020-03-06 08:24] LABS: Calcium 8.6 mg/dL (8.4-10.2)
[2020-03-06] MEDS ORDERED: DEXTROSE 5% IN WATER 1,000 ML IV SCH (09:00)
[2020-03-06] MEDS ORDERED: LORazepam 2 MG/ML VIAL IV ONE ×2 (09:23→09:39)
[2020-03-06] MEDS ORDERED: VANCOMYCIN/NS 1 GM/250 ML 1 GM/250 ML BAG IV ONE (11:00)
--- NOTE | 2020-03-06 11:49 | Progress Note ---
Assessment and Plan # Acute Kidney Injury, Azotemia: suspect pre-renal etiology given history of limited oral intake, overall poor conditioning. Creatinine improved from 5.4->3.9->2.0 with IVF. Renal ultrasound without acute obstruction. 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 Patient now DNR Subjective Date of service: 03/06/20 Interval history: No acute changes noted, appears in same mental status Objective - Exam Narrative Exam: Constitutional: confused, ill appearing Head: NC/AT Neck: supple Lungs: clear to auscultation CV: RRR, no M/R/G Abdomen: soft, non-tender, bowel sounds present Back: nontender Extremities: no edema, pulses WNL Skin: intact Neuro: lethargic, sleepy - Vital Signs Vital signs: Vital Signs - 12hr 03/06/20 03/06/20 04:16 06:25 Pulse Rate 73 Blood Pressure 173/83 - Lab 03/05/20 05:16 03/06/20 07:01 Most recent lab results Magnesium 3.40 mg/dL (1.7-2.3) H 03/04/20 13:38 Calcium 8.6 mg/dL (8.4-10.2) 03/06/20 07:01 Medications & Allergies - Medications Allergies/Adverse Reactions: Allergies duloxetine [From Cymbalta] Allergy (Verified 03/04/20 12:47) Unknown lamotrigine [From Lamictal] Allergy (Verified 03/04/20 12:47) Unknown milk Allergy (Verified 03/04/20 12:47) Unknown ofloxacin Allergy (Verified 03/04/20 12:47) Unknown pregabalin [From Lyrica] Allergy (Verified 03/04/20 12:47) Unknown Home Medications: Home Medications Medication Instructions Recorded Confirmed Last Taken Type Acetaminophen [Tylenol] 650 mg PO Q6H PRN 03/04/20 03/04/20 Unknown History Aspirin [Adult Aspirin] 81 mg PO DAILY 03/04/20 03/04/20 Unknown History Cholecalciferol (Vitamin D3) 2,000 unit PO QDAY 03/04/20 03/04/20 Unknown History [Vitamin D3 2,000 UNIT CAP] Enoxaparin [Lovenox] 40 mg SQ QDAY 03/04/20 03/04/20 Unknown History HYDROcodone/APAP 5-325 [[place] 1 each PO Q8HR PRN 03/04/20 03/04/20 Unknown History 5/325] LORazepam [Lorazepam] 0.5 mg PO DAILY 03/04/20 03/04/20 Unknown History Lactobacillus Rhamnosus GG 1 each PO QDAY 03/04/20 03/04/20 Unknown History [Culturelle] Levothyroxine [Synthroid] 75 mcg PO QAM 03/04/20 03/04/20 Unknown History Melatonin 1 mg PO QHS 03/04/20 03/04/20 Unknown History Polyethylene Glycol 3350 17 gm PO DAILY PRN 03/04/20 03/04/20 Unknown History [Powderlax] Sertraline [Zoloft] 100 mg PO QDAY 03/04/20 03/04/20 Unknown History Tamsulosin [Flomax] 0.4 mg PO QDAY 03/04/20 03/04/20 Unknown History lisinopriL [Zestril] 20 mg PO QDAY 03/04/20 03/04/20 Unknown History risperiDONE [RisperDAL] 0.25 mg PO QHS 03/04/20 03/04/20 Unknown History Active Medications: Generic Name Dose Route Start Last Admin Trade Name Freq PRN Reason Stop Dose Admin Hydromorphone HCl 0.25 mg 03/04/20 15:51 03/05/20 09:37 Dilaudid IV 0.25 mg Q4H PRN Administration Pain, Moderate (4-6) Heparin Sodium/Sodium Chloride 25,000 unit in 500 mls @ 18 mls/hr 03/04/20 16:00 03/06/20 09:25 Heparin/ 0.45% Nacl-25,000 Unit/500 Ml IV 1,350 units/hr TITRATE DIPTI 27 mls/hr Titration Protocol 900 UNITS/HR Ampicillin Sodium/Sulbactam Sodium 3 gm in 100 mls @ 200 mls/hr 03/05/20 13:00 03/06/20 00:11 Unasyn/Ns 3 Gm/100 Ml IV 200 mls/hr Q12H DIPTI Administration Dextrose 1,000 mls @ 75 mls/hr 03/06/20 09:00 03/06/20 11:28 D5w IV 0 mls/hr DIRECT DIPTI Infusion Vancomycin HCl 1 gm in 250 mls @ 167.007 mls/hr 03/06/20 11:00 Vancomycin/Ns 1 Gm/250 Ml IV 03/06/20 12:29 ONCE ONE Labetalol HCl 20 mg 03/05/20 03:05 03/06/20 04:16 Labetalol IV 20 mg Q6H PRN Administration Blood Pressure Sodium Chloride 10 ml 03/04/20 22:00 03/06/20 09:50 Sodium Chloride Flush Syringe 10 Ml IV 10 ml BID DIPTI Administration Sodium Chloride 10 ml 03/04/20 15:51 Sodium Chloride Flush Syringe 10 Ml IV PRN PRN LINE FLUSH
--- NOTE | 2020-03-06 11:54 | Progress Note ---
Assessment and Plan Cultures: Blood culture 03/04/2020 gram-positive cocci 2 out of 4 bottles Urine culture 03/04/2020 10-100,000 CFU normal skin joseph. Assessment: 74 years old male with history of hypertension, hypothyroidism, Alzheimer dementia, resident of a detention after recent fall with subsequent hip fracture and left arm injury, wearing a sling since 02/14/2020. Admitted on 03/04/2020 due to worsening confusion and right neck swelling for 48 hours: #Severe sepsis: Present on admission with tachycardia, high leukocytosis, acute kidney injury, elevated LFTs, secondary to acute likely suppurative right parotitis +/-UTI +/-bacteremia. #Gram-positive cocci bacteremia: Likely true bacteremia secondary to suppurative parotitis. #Acute right likely suppurative parotitis: Patient at high risk given age, dehydration and use of anticholinergic agents. CT of the neck with prominent enlargement of the right parotid gland, associated with surrounding cellulitic changes in the parotid region and extending downward along the right lateral aspect of the neck. There is no evidence of fluid collection or abscess. In the setting this could be secondary to MRSA or oral anaerobes. #Acute right IJ thrombus: Now with positive blood cultures it may represent septic thrombophlebitis in the setting of bacteremia. Usually related to an IV catheter, unclear etiology, possible compression from sling. It is not a common presentation of acute parotitis. #Acute UTI: Urine cultures growing normal skin joseph. #Transaminitis: Likely secondary to sepsis. #Reactive thrombocytosis: Secondary to sepsis. #Acute encephalopathy: Likely secondary to sepsis. Improving #Acute kidney injury: Secondary to sepsis, already improving Recommendations: -Follow-up blood cultures growing gram-positive cocci -Repeat blood cultures today -Obtain transthoracic echo -Continue vancomycin with PK consult -renally adjusted -Continue Unasyn IV for now -renally adjusted -Warm compresses to the right parotid -discussed with nurse -Anticoagulation per primary team -Vascular on board Will follow. Sofia Peterson MD Infectious Diseases Web Site Manager [facility] M [phone] O [phone] Subjective Date of service: 03/06/20 Principal diagnosis: Sepsis Interval history: Patient is more alert, following simple commands, still confused, no fever. Objective - Exam Narrative Exam: General appearance: Alert no acute distress Eyes: anicteric sclerae, moist conjunctivae; no lid-lag; PERRLA HENT: Atraumatic; oropharynx clear with moist mucous membranes and no oral thrush; normal hard and soft palate. Neck: Marked left-sided hard indurated edema of the left cheek, neck and submandibular area, very tender to palpation Lungs: CTA, with normal respiratory effort and no intercostal retractions CV: Tachycardic Abdomen: Soft, non-tender; no masses or hepatosplenomegaly Extremities: no edema, no cyanosis Skin: No rash. Psych: Alert confused Neuro: Alert confused - Constitutional Vitals: Vital Signs Temp Pulse Resp BP Pulse Ox 97.4 F L 73 18 173/83 100 03/05/20 21:09 03/06/20 06:25 03/05/20 21:09 03/06/20 04:16 03/05/20 21:09 Temperature -Last 24 Hours Temperature 97.4 F Temperature 98.2 F Temperature 98.6 F - Labs CBC & Chem 7: 03/05/20 05:16 03/06/20 07:01 Labs: Abnormal lab results 03/05/20 03/06/20 03/06/20 Range/Units 14:42 00:03 07:01 Heparin Anti-Xa Level 0.10 L 0.22 L (0.3-0.7) U.I./ml Sodium 164 H* (137-145) mmol/L Chloride 127.7 H (98-107) mmol/L BUN 91 H (9-20) mg/dL Creatinine 2.0 H (0.8-1.3) mg/dL Glucose 140 H (75-100) mg/dL 03/06/20 Range/Units 07:01 Heparin Anti-Xa Level < 0.10 L (0.3-0.7) U.I./ml Sodium (137-145) mmol/L Chloride (98-107) mmol/L BUN (9-20) mg/dL Creatinine (0.8-1.3) mg/dL Glucose (75-100) mg/dL
[2020-03-06] MEDS ORDERED: HEPARIN 10,000 UNITS/10 ML VIAL IV ONE (12:25)
--- NOTE | 2020-03-06 12:40 | Magnetic Resonance Report ---
MRI scan of the neck: HISTORY: Swelling on the right side TECHNIQUE: Transverse and coronal images are obtained before and after 14 mL of MultiHance. COMPARISON: CT scan of the neck from 03/05/2020 FINDINGS: Diffuse enlargement of superficial lobe of the right parotid gland; homogenous enhancement in the expanded right parotid gland; no focal lesion within the parotid gland Inflammatory changes with thickened the skin and subcutaneous fatty infiltration and edema; no enhanc ement in the parotid capsule Right Stensen's duct is dilated; right buccal space normal Left parotid gland and both submandibular glands normal. MR findings suggest parotitis on the right side; no evidence of abscess formation Pharyngeal mucosal space, furnace mechanic space and parapharyngeal space are normal. Larynx is normal. Infrahyoid neck is normal. Few reactive lymph nodes seen. IMPRESSION: MR findings consistent with parotitis on the right side; no MR findings to suggest absces s formation Signer Name: Su Moran MD Signed: 03/06/2020 12:35 PM Workstation Name: [id number]
--- NOTE | 2020-03-06 13:34 | Progress Note ---
Assessment and Plan Assessment and plan: HPI on admission 74 YO Male Senior Living Facility Resident at [facility] with HTN, Hypothyroidism, Alzheimers Dementia with A FAST Score of 7E and PPS of 30% who is currently bedbound and requires 6/6 assistance with activities of daily living, Debility presents to ED for evaluation. Patient is nonverbal, lethargic and is unable to provide history at the time of my evaluation. Patient is at bedside during exam and interview and provides history. As per the patient has experienced a rapid decline in his state of health after suffering a fall complicated by hip fracture on February 13. Patient reports increased confusion as well as right neck swelling over the past 2 days with progressively worsening symptoms over the same timeframe. EMS was notified and upon arrival the patient was found to be in distress and subsequently transported to [facility] for further care and evaluation of the aforementioned symptoms. Patient seen and evaluated in the emergency department. Lab and imaging studies reviewed. 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 Patient admitted to ICU due to increased risk of multisystem decompensation. Vascular surgery service consulted in the emergency department and the patient is initiated on a heparin drip. Patient found to have poor prognosis. Advanced care planning conducted in ED. Patient prognosis discussed with . Patient acknowledges understanding and agreement with care plan. Patient is confused and lethargic at the time of my evaluation but the patient has a positive gag reflex and is able to protect his airway without difficulty. 03/05. Spouse at bedside. He responds when called. ID consulted for sepsis 2/2 cellulitis vs parotitis. He is on anticoagulation. Maintained on antibiotics. He still has tom on left hip and will need to have this removed. Had hip replacement 02/14. Will get ortho for this. Discussed with spouse at bedside. 03/06. Sodium 164. Fluids switched to D5 water. Still maintain on IV an tibiotics. ID, nephrology and surgery following. Awaiting Ortho evaluation for staple removal. MRI of the neck ordered to rule out any underlying abscess. May need ENT evaluation (1) Sepsis Current Visit: Yes Status: Acute Qualifiers: Severe sepsis acute organ dysfunction type: acute renal failure Plan to address problem: From neck infection Continue vancomycin and Unasyn. ID evaluation Vascular surgery following (2) Toxic metabolic encephalopathy Current Visit: Yes Status: Acute Plan to address problem: CT head, neuro check, treat sepsis, IV fluid resuscitation therapy, supportive care. (3) Acute kidney injury with acute tubular necrosis Current Visit: Yes Status: Acute Plan to address problem: Continue to monitor IV hydration Nephrology evaluation ongoing (4) Urinary tract infection Current Visit: Yes Status: Acute Qualifiers: Encounter type: initial encounter Plan to address problem: On antibiotics (5) Lemierre syndrome Current Visit: Yes Status: Acute Plan to address problem: Vascular surgery on board MRI of the neck ordered today. Continue anticoagulation (6) Cellulitis, neck Current Visit: Yes Status: Acute Plan to address problem: Continue antibiotics (7) Hypernatremia Current Visit: Yes Status: Acute Plan to address problem: Switch fluids to D5 water (8) Metabolic acidosis Current Visit: Yes Status: Acute Plan to address problem: Serial lactic acid level, BMP, IV bicarbonate therapy. Supportive care. (9) DVT prophylaxis Current Visit: Yes Status: Acute Plan to address problem: SCD to bilateral lower extremities while in bed, continue therapeutic anticoagulation (10) Advance care planning Current Visit: Yes Status: Acute Plan to address problem: Disease education conducted, prognosis discussed. Patient is full code. Patient has very poor prognosis. Patient's acknowledges understanding and agreement with care plan, +30 minutes. History Interval history: Patient seen and examined at bedside this morning. Has no complaints but is lethargic today. Sodium is 164. Switched fluids to D5W Hospitalist Physical - Constitutional Vitals: Temp Pulse Resp BP Pulse Ox 97.4 F L 100 H 18 173/83 100 03/05/20 21:09 03/06/20 10:00 03/05/20 21:09 03/06/20 04:16 03/05/20 21:09 General appearance: Present: no acute distress - EENT Eyes: Present: PERRL - Neck Neck: Present: other (Swelling on the right side of the neck, tender to palpation) - Respiratory Respiratory: bilateral: CTA - Cardiovascular Heart Sounds: Present: S1 & S2 - Extremities Extremities: no ischemia, No edema - Abdominal General gastrointestinal: soft, non-tender, non-distended, normal bowel sounds - Neurologic Neurologic: CNII-XII intact Results - Labs CBC & Chem 7: 03/05/20 05:16 03/06/20 07:01 Labs: Laboratory Last Values WBC 25.2 K/mm3 (4.5-11.0) H 03/05/20 05:16 RBC 3.43 M/mm3 (3.65-5.03) L 03/05/20 05:16 Hgb 9.8 gm/dl (11.8-15.2) L 03/05/20 05:16 Hct 31.5 % (35.5-45.6) L 03/05/20 05:16 MCV 92 fl (84-94) 03/05/20 05:16 MCH 29 pg (28-32) 03/05/20 05:16 MCHC 31 % (32-34) L 03/05/20 05:16 RDW 16.2 % (13.2-15.2) H 03/05/20 05:16 Plt Count 584 K/mm3 (140-440) H 03/05/20 05:16 Lymph % (Auto) 2.2 % (13.4-35.0) L 03/05/20 05:16 [place] % (Auto) 5.4 % (0.0-7.3) 03/05/20 05:16 Eos % (Auto) 0.0 % (0.0-4.3) 03/05/20 05:16 Baso % (Auto) 0.0 % (0.0-1.8) 03/05/20 05:16 Lymph # 0.5 K/mm3 (1.2-5.4) L 03/05/20 05:16 [place] # 1.4 K/mm3 (0.0-0.8) H 03/05/20 05:16 Eos # 0.0 K/mm3 (0.0-0.4) 03/05/20 05:16 Baso # 0.0 K/mm3 (0.0-0.1) 03/05/20 05:16 Add Manual Diff Complete 03/04/20 13:38 Total Counted 100 03/04/20 13:38 Seg Neutrophils % Super[employer] 03/05/20 05:16 Seg Neuts % (Manual) 91.0 % (40.0-70.0) H 03/04/20 13:38 Band Neutrophils % 2.0 % 03/04/20 13:38 Lymphocytes % (Manual) 3.0 % (13.4-35.0) L 03/04/20 13:38 Reactive Lymphs % (Man) 0 % 03/04/20 13:38 Monocytes % (Manual) 4.0 % (0.0-7.3) 03/04/20 13:38 Eosinophils % (Manual) 0 % (0.0-4.3) 03/04/20 13:38 Basophils % (Manual) 0 % (0.0-1.8) 03/04/20 13:38 Metamyelocytes % 0 % 03/04/20 13:38 Myelocytes % 0 % 03/04/20 13:38 Promyelocytes % 0 % 03/04/20 13:38 Blast Cells % 0 % 03/04/20 13:38 Nucleated RBC % 1.0 % (0.0-0.9) H 03/04/20 13:38 Seg Neutrophils # 23.3 K/mm3 (1.8-7.7) H 03/05/20 05:16 Seg Neutrophils # Man 29.0 K/mm3 (1.8-7.7) H 03/04/20 13:38 Band Neutrophils # 0.6 K/mm3 03/04/20 13:38 Lymphocytes # (Manual) 1.0 K/mm3 (1.2-5.4) L 03/04/20 13:38 Abs React Lymphs (Man) 0.0 K/mm3 03/04/20 13:38 Monocytes # (Manual) 1.3 K/mm3 (0.0-0.8) H 03/04/20 13:38 Eosinophils # (Manual) 0.0 K/mm3 (0.0-0.4) 03/04/20 13:38 Basophils # (Manual) 0.0 K/mm3 (0.0-0.1) 03/04/20 13:38 Metamyelocytes # 0.0 K/mm3 03/04/20 13:38 Myelocytes # 0.0 K/mm3 03/04/20 13:38 Promyelocytes # 0.0 K/mm3 03/04/20 13:38 Blast Cells # 0.0 K/mm3 03/04/20 13:38 WBC Morphology Not Reportable 03/04/20 13:38 Hypersegmented Neuts Not Reportable 03/04/20 13:38 Hyposegmented Neuts Not Reportable 03/04/20 13:38 Hypogranular Neuts Not Reportable 03/04/20 13:38 Smudge Cells Not Reportable 03/04/20 13:38 Toxic Granulation Not Reportable 03/04/20 13:38 Toxic Vacuolation Not Reportable 03/04/20 13:38 Dohle Bodies Not Reportable 03/04/20 13:38 Pelger-Huet Anomaly Not Reportable 03/04/20 13:38 Armand Rods Not Reportable 03/04/20 13:38 Platelet Estimate Consistent w auto 03/04/20 13:38 Clumped Platelets Not Reportable 03/04/20 13:38 Plt Clumps, EDTA Not Reportable 03/04/20 13:38 Large Platelets Not Reportable 03/04/20 13:38 Giant Platelets Not Reportable 03/04/20 13:38 Platelet Satelliting Not Reportable 03/04/20 13:38 Plt Morphology Comment Not Reportable 03/04/20 13:38 RBC Morphology Not Reportable 03/04/20 13:38 Dimorphic RBCs Not Reportable 03/04/20 13:38 Polychromasia Not Reportable 03/04/20 13:38 Hypochromasia Not Reportable 03/04/20 13:38 Poikilocytosis Not Reportable 03/04/20 13:38 Anisocytosis Few 03/04/20 13:38 Microcytosis Not Reportable 03/04/20 13:38 Macrocytosis Few 03/04/20 13:38 Spherocytes Not Reportable 03/04/20 13:38 Pappenheimer Bodies Not Reportable 03/04/20 13:38 Sickle Cells Not Reportable 03/04/20 13:38 Target Cells Not Reportable 03/04/20 13:38 Tear Drop Cells Not Reportable 03/04/20 13:38 Ovalocytes Not Reportable 03/04/20 13:38 Helmet Cells Not Reportable 03/04/20 13:38 [place] Bodies Not Reportable 03/04/20 13:38 [place] Rings Not Reportable 03/04/20 13:38 Jimmy Cells Not Reportable 03/04/20 13:38 Bite Cells Not Reportable 03/04/20 13:38 Crenated Cell Not Reportable 03/04/20 13:38 Elliptocytes Not Reportable 03/04/20 13:38 Acanthocytes (Spur) Not Reportable 03/04/20 13:38 Rouleaux Not Reportable 03/04/20 13:38 Hemoglobin C Crystals Not Reportable 03/04/20 13:38 Schistocytes Not Reportable 03/04/20 13:38 Malaria parasites Not Reportable 03/04/20 13:38 Torsten Bodies Not Reportable 03/04/20 13:38 Hem Pathologist Commnt No 03/04/20 13:38 PT 15.6 Sec. (12.2-14.9) H 03/04/20 13:38 INR 1.21 (0.87-1.13) H 03/04/20 13:38 APTT 33.0 Sec. (24.2-36.6) 03/04/20 13:38 Heparin Anti-Xa Level < 0.10 U.I./ml (0.3-0.7) L 03/06/20 07:01 Sodium 164 mmol/L (137-145) H* 03/06/20 07:01 Potassium 3.8 mmol/L (3.6-5.0) 03/06/20 07:01 Chloride 127.7 mmol/L (98-107) H 03/06/20 07:01 Carbon Dioxide 22 mmol/L (22-30) 03/06/20 07:01 Anion Gap 18 mmol/L 03/06/20 07:01 BUN 91 mg/dL (9-20) H 03/06/20 07:01 Creatinine 2.0 mg/dL (0.8-1.3) H 03/06/20 07:01 Estimated GFR 40 ml/min 03/06/20 07:01 BUN/Creatinine Ratio 46 % 03/06/20 07:01 Glucose 140 mg/dL (75-100) H 03/06/20 07:01 Lactic Acid 1.40 mmol/L (0.7-2.0) 03/05/20 05:16 Magnesium 3.40 mg/dL (1.7-2.3) H 03/04/20 13:38 Calcium 8.6 mg/dL (8.4-10.2) 03/06/20 07:01 Total Bilirubin 0.40 mg/dL (0.1-1.2) 03/05/20 05:16 AST 26 units/L (5-40) 03/05/20 05:16 ALT 39 units/L (7-56) 03/05/20 05:16 Alkaline Phosphatase 164 units/L (35-129) H 03/05/20 05:16 Total Creatine Kinase 82 units/L (55-170) 03/04/20 13:38 Total Protein 7.1 g/dL (6.3-8.2) 03/05/20 05:16 Albumin 2.4 g/dL (3.9-5) L 03/05/20 05:16 Albumin/Globulin Ratio 0.5 % 03/05/20 05:16 Urine Color [place] (Yellow) 03/04/20 13:55 Urine Turbidity Turbid (Clear) 03/04/20 13:55 Urine pH 5.0 (5.0-7.0) 03/04/20 13:55 Ur Specific Ophiem 1.017 (1.003-1.030) 03/04/20 13:55 Urine Protein 30 mg/dl mg/dL (Negative) 03/04/20 13:55 Urine Glucose (UA) Neg mg/dL (Negative) 03/04/20 13:55 Urine Ketones Neg mg/dL (Negative) 03/04/20 13:55 Urine Blood Sm (Negative) 03/04/20 13:55 Urine Nitrite Neg (Negative) 03/04/20 13:55 Urine Bilirubin Neg (Negative) 03/04/20 13:55 Urine Urobilinogen < 2.0 mg/dL (<2.0) 03/04/20 13:55 Ur Leukocyte Esterase Lg (Negative) 03/04/20 13:55 Urine WBC (Auto) > 182.0 /HPF (0.0-6.0) H 03/04/20 13:55 Urine RBC (Auto) 31.0 /HPF (0.0-6.0) 03/04/20 13:55 U Epithel Cells (Auto) 1.0 /HPF (0-13.0) 03/04/20 13:55 Urine Bacteria (Auto) 4+ /HPF (Negative) 03/04/20 13:55 Ur Transition Epith Cell 5 /HPF 03/04/20 13:55 Urine Mucus Few /HPF 03/04/20 13:55 Random Vancomycin 7.8 ug/mL (0-40.0) 03/06/20 07:01 Salicylates < 0.3 mg/dL (2.8-20.0) L 03/04/20 13:38 Acetaminophen 5.0 ug/mL (10.0-30.0) L 03/04/20 13:38 Blood Type A POSITIVE 03/04/20 16:15 Antibody Screen Negative 03/04/20 16:15 Microbiology: Microbiology 03/04/20 Unknown Urine,Catheterized - Indwelling Catheter Urine Culture - Final 03/04/20 13:38 Peripheral/Venous Blood Culture - Preliminary 03/04/20 13:38 Peripheral/Venous Blood Culture - Preliminary Anguiano/IV: Voiding Method Indwelling Catheter IV Catheter Type [Right Upper Peripheral IV arm] IV Catheter Type [Right Hand] Peripheral IV IV Catheter Type [Right INT / Saline Lock Forearm] Active Medications - Current Medications Current Medications: Generic Name Dose Route Start Last Admin Trade Name Freq PRN Reason Stop Dose Admin Hydromorphone HCl 0.25 mg 03/04/20 15:51 03/05/20 09:37 Dilaudid IV 0.25 mg Q4H PRN Administration Pain, Moderate (4-6) Heparin Sodium/Sodium Chloride 25,000 unit in 500 mls @ 18 mls/hr 03/04/20 16:00 03/06/20 12:45 Heparin/ 0.45% Nacl-25,000 Unit/500 Ml IV 1,350 units/hr TITRATE DIPTI 27 mls/hr Titration Protocol 900 UNITS/HR Ampicillin Sodium/Sulbactam Sodium 3 gm in 100 mls @ 200 mls/hr 03/05/20 13:00 03/06/20 00:11 Unasyn/Ns 3 Gm/100 Ml IV 200 mls/hr Q12H DIPTI Administration Dextrose 1,000 mls @ 75 mls/hr 03/06/20 09:00 03/06/20 11:28 D5w IV 0 mls/hr DIRECT DIPTI Infusion Labetalol HCl 20 mg 03/05/20 03:05 03/06/20 04:16 Labetalol IV 20 mg Q6H PRN Administration Blood Pressure Sodium Chloride 10 ml 03/04/20 22:00 03/06/20 09:50 Sodium Chloride Flush Syringe 10 Ml IV 10 ml BID DIPTI Administration Sodium Chloride 10 ml 03/04/20 15:51 Sodium Chloride Flush Syringe 10 Ml IV PRN PRN LINE FLUSH Nutrition/Malnutrition Assess - Dietary Evaluation Nutrition/Malnutrition Findings: Nutrition Notes Start: 03/05/20 13:40 Freq: Status: Active Protocol: Document 03/05/20 13:40 [email or web address] (Rec: 03/05/20 14:43 [email or web address]) Co-Sign 03/05/20 13:40 NHALL Nutrition Notes 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 Per MD, pt to remain NPO at this time. Burn Absent Trauma Absent GI Symptoms None Difficulty In Swallowing Current % PO Negligible Minimum of two criteria No #1 Nutrition Diagnosis Inadequate oral intake Etiology AMS As Evidenced by Signs and Symptoms Pt NPO Is patient on ventilator? No Is Patient Ambulatory and/or Out of Bed No REE-([facility]-confined to bed) 1699.320 Kcal/Kg value to use for calculation 34 Approximate Energy Requirements Using 2081 kcal/Kg Calculation Used for Recommendations Kcal/kg Additional Notes Protein needs 73-92g (1.2-1.5g /kg) Fluid needs 1ml/kcal Nutrition Intervention Change Diet Order: advance diet when medically feasible Goal #1 Diet advancement to meet nutrient needs Goal #2 Wt maintenance or gain Anticipated Discharge Needs: Undetermined at this time Follow-Up By: 03/07/20 Additional Comments F/U for diet advancement or plan of care.
[2020-03-06] MEDS: HEPARIN/ 0.45% NACL DRIP 25,000 UNIT/500 ML BAG IV SCH (15:05)
[2020-03-06 15:14] LABS: Calcium 8.7 mg/dL (8.4-10.2)
[2020-03-06] MEDS: amLODIPine 10 MG TAB PO ONE ×2 (16:14→16:48)
--- NOTE | 2020-03-06 16:57 | Consultation ---
History of Present Illness - HPI Consult date: 03/06/20 Consult reason: other History of present illness: 74 y/o male admitted for unrelated medical condition, s/p recent left hip surgery asked to evaluate bcoz of recent surger.... Past History Past Medical History: anemia, hypertension, hypothyroidism, other (See HPI) Past Surgical History: Other (Femur Repari) Social history: , lives with family. denies: smoking, alcohol abuse, prescription drug abuse Family history: hypertension Medications and Allergies Allergies Allergy/AdvReac Type Severity Reaction Status Date / Time duloxetine [From Cymbalta] Allergy Unknown Verified 03/04/20 12:47 lamotrigine [From Lamictal] Allergy Unknown Verified 03/04/20 12:47 milk Allergy Unknown Verified 03/04/20 12:47 ofloxacin Allergy Unknown Verified 03/04/20 12:47 pregabalin [From Lyrica] Allergy Unknown Verified 03/04/20 12:47 Home Medications Medication Instructions Recorded Confirmed Last Taken Type Acetaminophen [Tylenol] 650 mg PO Q6H PRN 03/04/20 03/04/20 Unknown History Aspirin [Adult Aspirin] 81 mg PO DAILY 03/04/20 03/04/20 Unknown History Cholecalciferol (Vitamin D3) 2,000 unit PO QDAY 03/04/20 03/04/20 Unknown History [Vitamin D3 2,000 UNIT CAP] Enoxaparin [Lovenox] 40 mg SQ QDAY 03/04/20 03/04/20 Unknown History HYDROcodone/APAP 5-325 [[place] 1 each PO Q8HR PRN 03/04/20 03/04/20 Unknown History 5/325] LORazepam [Lorazepam] 0.5 mg PO DAILY 03/04/20 03/04/20 Unknown History Lactobacillus Rhamnosus GG 1 each PO QDAY 03/04/20 03/04/20 Unknown History [Culturelle] Levothyroxine [Synthroid] 75 mcg PO QAM 03/04/20 03/04/20 Unknown History Melatonin 1 mg PO QHS 03/04/20 03/04/20 Unknown History Polyethylene Glycol 3350 17 gm PO DAILY PRN 03/04/20 03/04/20 Unknown History [Powderlax] Sertraline [Zoloft] 100 mg PO QDAY 09/21/20 09/21/20 Unknown History Tamsulosin [Flomax] 0.4 mg PO QDAY 03/04/20 03/04/20 Unknown History lisinopriL [Zestril] 20 mg PO QDAY 03/04/20 03/04/20 Unknown History risperiDONE [RisperDAL] 0.25 mg PO QHS 03/04/20 03/04/20 Unknown History Active Meds: Active Medications Hydromorphone HCl (Dilaudid) 0.25 mg IV Q4H PRN PRN Reason: Pain, Moderate (4-6) Last Admin: 03/05/20 09:37 Dose: 0.25 mg Documented by: Heparin Sodium/Sodium Chloride (Heparin/ 0.45% Nacl-25,000 Unit/500 Ml) 25,000 unit in 500 mls @ 18 mls/hr IV TITRATE DIPTI; Protocol Last Admin: 03/06/20 15:05 Dose: 1,350 units/hr, 27 mls/hr Documented by: Ampicillin Sodium/Sulbactam Sodium (Unasyn/Ns 3 Gm/100 Ml) 3 gm in 100 mls @ 200 mls/hr IV Q12H DIPTI Last Admin: 03/06/20 16:14 Dose: 200 mls/hr Documented by: Dextrose (D5w) 1,000 mls @ 75 mls/hr IV DIRECT DIPTI Last Infusion: 03/06/20 11:28 Dose: 0 mls/hr Documented by: Dextrose (D5w) 1,000 mls @ 150 mls/hr IV DIRECT DIPTI Labetalol HCl (Labetalol) 20 mg IV Q6H PRN PRN Reason: Blood Pressure Last Admin: 03/06/20 04:16 Dose: 20 mg Documented by: Sodium Chloride (Sodium Chloride Flush Syringe 10 Ml) 10 ml IV BID DIPTI Last Admin: 03/06/20 09:50 Dose: 10 ml Documented by: Sodium Chloride (Sodium Chloride Flush Syringe 10 Ml) 10 ml IV PRN PRN PRN Reason: LINE FLUSH Assessment and Plan s/p left hip surgery, bipolar vs total hip replacement not sure at this point because no radiographic study done... will obtain xrays and make recommendations
--- NOTE | 2020-03-06 18:16 | XRay Report ---
LEFT HIP 2 VIEWS INDICATION / CLINICAL INFORMATION: recent left total hip replacement surgery COMPARISON: None available. FINDINGS: BONES / JOINT(S): Left hip prosthesis with satisfactory alignment. No acute injury. SOFT TISSUES: No significant abnormality. ADDITIONAL FINDINGS: None. Signer Name: Vikas Ramesh MD Signed: 03/06/2020 6:12 PM Workstation Name: [id number]
[2020-03-06 18:50] LABS: Calcium 8.5 mg/dL (8.4-10.2)
[2020-03-06] MEDS: HYDROmorphone 1 MG/1 ML INJ IV PRN (19:05)
--- NOTE | 2020-03-06 22:44 | XRay Report ---
ABDOMEN 1 VIEW INDICATION / CLINICAL INFORMATION: To verify placement for feeding. COMPARISON: None available. FINDINGS: TUBES / LINES: Gastric tube extends across the gastroesophageal junction and terminates in the left u pper quadrant. BOWEL GAS PATTERN: Diffuse gaseous distention of small bowel loops without convincing evidence of obs truction. FREE AIR / EXTRALUMINAL GAS: None seen. ADDITIONAL FINDINGS: No significant additional findings. IMPRESSION: 1. Gastric tube placed with positioning, as above. Signer Name: Sebastian Ham MD Signed: 03/06/2020 10:40 PM Workstation Name: [id number]
[2020-03-06] MEDS: DEXTROSE 5% IN WATER 1,000 ML IV SCH (23:23)
[2020-03-07] MEDS: AMPICILLIN/SULBACTA 3GM/100ML 3 GM/100 ML BAG IV SCH (00:12)
[2020-03-07 01:48] LABS: Basophils % (Auto) 0.1 % (0.0-1.8); Eosinophils % (Auto) 0.2 % (0.0-4.3); Hematocrit 31.8 % (35.5-45.6); Hemoglobin 10.1 gm/dl (11.8-15.2); Lymphocytes # (Auto) 1.5 K/mm3 (1.2-5.4); Lymphocytes % (Auto) 8.4 % (13.4-35.0); Mean Corpuscular HGB Conc 32 % (32-34); Mean Corpuscular Volume 93 fl (84-94); Monocytes # (Auto) 1.3 K/mm3 (0.0-0.8); Monocytes % (Auto) 6.9 % (0.0-7.3); Platelet Count 517 K/mm3 (140-440); Red Blood Count 3.41 M/mm3 (3.65-5.03); Red Cell Distribution Width 16.3 % (13.2-15.2)
[2020-03-07 02:29] LABS: Albumin 2.7 g/dL (3.9-5); Calcium 8.4 mg/dL (8.4-10.2)
[2020-03-07] MEDS: HYDROmorphone 1 MG/1 ML INJ IV PRN ×2 (03:27→09:16)
[2020-03-07] MEDS ORDERED: AMPICILLIN/SULBACTA 3GM/100ML 3 GM/100 ML BAG IV SCH (08:00)
[2020-03-07 08:05] LABS: BUN/Creatinine Ratio 44; Blood Urea Nitrogen 61 mg/dL (9-20); Calcium 8.9 mg/dL (8.4-10.2); Hemolysis Index 30
[2020-03-07] MEDS: POTASSIUM CHLORIDE 10 MEQ 10 MEQ/100 ML BAG IV SCH ×4 (09:15→16:09)
--- NOTE | 2020-03-07 09:24 | Progress Note ---
Assessment and Plan # Acute Kidney Injury, Azotemia: suspect pre-renal etiology given history of limited oral intake, overall poor conditioning. Creatinine improved from 5.4->3.9->2.0->1.4 with IVF. Renal ultrasound without acute obstruction. Good urine output noted - changed to D5w as below - strict Is/Os - avoid nephrotoxins - urinalysis reviewed, defer serologic workup - BP previously reasonable, now on higher side - no indication for renal replacement therapy currently # Hypernatremia, Hyperchloremia: free water deficit noted, sodium has worsened from 154->160->164 previously on D5 1/2NS, agree with ongoing use D5W, can provide free water with tube feeds if applicable # Sepsis: IVF, management per primary, appreciate ID, vasc, pulm # Cellulitis, Concern for Lemierre Syndrome, MRI pending # Acidosis: improved with IVF # Hypoalbuminemia: will check UP/C, likely due to malnutrition. Patient now DNR Subjective Date of service: 03/07/20 Principal diagnosis: Sepsis Interval history: No acute changes noted, appears in same mental status Objective - Exam Narrative Exam: Constitutional: confused, ill appearing Head: NC/AT Neck: supple Lungs: clear to auscultation CV: RRR, no M/R/G Abdomen: soft, non-tender, bowel sounds present Back: nontender Extremities: no edema, pulses WNL Skin: intact Neuro: lethargic, sleepy - Vital Signs Vital signs: Vital Signs - 12hr 03/06/20 03/06/20 03/06/20 21:52 22:00 22:12 Temperature 97.6 F Pulse Rate 82 Pulse Rate [ 81 From Monitor] Respiratory 20 Rate Blood Pressure 184/131 155/79 O2 Sat by Pulse 98 Oximetry 03/06/20 03/07/20 03/07/20 22:15 03:27 06:11 Temperature 98.9 F Pulse Rate 72 72 Pulse Rate [ From Monitor] Respiratory 20 20 Rate Blood Pressure 170/73 O2 Sat by Pulse 96 Oximetry 03/07/20 03/07/20 06:33 09:16 Temperature Pulse Rate 72 Pulse Rate [ From Monitor] Respiratory 20 Rate Blood Pressure 170/73 O2 Sat by Pulse Oximetry - Lab 03/07/20 00:22 03/07/20 06:56 Most recent lab results Magnesium 3.40 mg/dL (1.7-2.3) H 03/04/20 13:38 Calcium 8.9 mg/dL (8.4-10.2) 03/07/20 06:56 Medications & Allergies - Medications Allergies/Adverse Reactions: Allergies duloxetine [From Cymbalta] Allergy (Verified 03/04/20 12:47) Unknown lamotrigine [From Lamictal] Allergy (Verified 03/04/20 12:47) Unknown milk Allergy (Verified 03/04/20 12:47) Unknown ofloxacin Allergy (Verified 03/04/20 12:47) Unknown pregabalin [From Lyrica] Allergy (Verified 03/04/20 12:47) Unknown Home Medications: Home Medications Medication Instructions Recorded Confirmed Last Taken Type Acetaminophen [Tylenol] 650 mg PO Q6H PRN 03/04/20 03/04/20 Unknown History Aspirin [Adult Aspirin] 81 mg PO DAILY 03/04/20 03/04/20 Unknown History Cholecalciferol (Vitamin D3) 2,000 unit PO QDAY 03/04/20 03/04/20 Unknown History [Vitamin D3 2,000 UNIT CAP] Enoxaparin [Lovenox] 40 mg SQ QDAY 03/04/20 03/04/20 Unknown History HYDROcodone/APAP 5-325 [[place] 1 each PO Q8HR PRN 03/04/20 03/04/20 Unknown History 5/325] LORazepam [Lorazepam] 0.5 mg PO DAILY 03/04/20 03/04/20 Unknown History Lactobacillus Rhamnosus GG 1 each PO QDAY 03/04/20 03/04/20 Unknown History [Culturelle] Levothyroxine [Synthroid] 75 mcg PO QAM 03/04/20 03/04/20 Unknown History Melatonin 1 mg PO QHS 03/04/20 03/04/20 Unknown History Polyethylene Glycol 3350 17 gm PO DAILY PRN 03/04/20 03/04/20 Unknown History [Powderlax] Sertraline [Zoloft] 100 mg PO QDAY 03/04/20 03/04/20 Unknown History Tamsulosin [Flomax] 0.4 mg PO QDAY 03/04/20 03/04/20 Unknown History lisinopriL [Zestril] 20 mg PO QDAY 03/04/20 03/04/20 Unknown History risperiDONE [RisperDAL] 0.25 mg PO QHS 03/04/20 03/04/20 Unknown History Active Medications: Generic Name Dose Route Start Last Admin Trade Name Mike PRN Reason Stop Dose Admin Hydromorphone HCl 0.25 mg 03/04/20 15:51 03/07/20 09:16 Dilaudid IV 0.25 mg Q4H PRN Administration Pain, Moderate (4-6) Heparin Sodium/Sodium Chloride 25,000 unit in 500 mls @ 18 mls/hr 03/04/20 16:00 03/06/20 19:00 Heparin/ 0.45% Nacl-25,000 Unit/500 Ml IV 1,350 units/hr TITRATE DIPTI 27 mls/hr Titration Protocol 900 UNITS/HR Dextrose 1,000 mls @ 150 mls/hr 03/06/20 17:00 03/06/20 23:23 D5w IV 150 mls/hr DIRECT DIPTI Administration Vancomycin HCl 1 gm in 250 mls @ 166.667 mls/hr 03/07/20 10:00 Vancomycin/Ns 1 Gm/250 Ml IV Q24HR DIPTI Ampicillin Sodium/Sulbactam Sodium 3 gm in 100 mls @ 200 mls/hr 03/07/20 08:00 Unasyn/Ns 3 Gm/100 Ml IV Q8HR DIPTI Potassium Chloride 10 meq in 100 mls @ 100 mls/hr 03/07/20 08:00 03/07/20 09:15 Kcl 10meq/100ml IV 03/07/20 11:59 100 mls/hr Q1H DIPTI Administration Labetalol HCl 20 mg 03/05/20 03:05 03/07/20 06:33 Labetalol IV 20 mg Q6H PRN Administration Blood Pressure Sodium Chloride 10 ml 03/04/20 22:00 03/06/20 22:42 Sodium Chloride Flush Syringe 10 Ml IV 10 ml BID DIPTI Administration Sodium Chloride 10 ml 03/04/20 15:51 Sodium Chloride Flush Syringe 10 Ml IV PRN PRN LINE FLUSH
--- NOTE | 2020-03-07 10:32 | Progress Note ---
Assessment and Plan Assessment and plan: HPI on admission 74 YO Male [facility] Resident at [facility] with HTN, Hypothyroidism, Alzheimers Dementia with A FAST Score of 7E and PPS of 30% who is currently bedbound and requires 6/6 assistance with activities of daily living, Debility presents to ED for evaluation. Patient is nonverbal, lethargic and is unable to provide history at the time of my evaluation. Patient is at bedside during exam and interview and provides history. As per the patient has experienced a rapid decline in his state of health after suffering a fall complicated by hip fracture on February 13. Patient reports increased confusion as well as right neck swelling over the past 2 days with progressively worsening symptoms over the same timeframe. EMS was notified and upon arrival the patient was found to be in distress and subsequently transported to [facility] for further care and evaluation of the aforementioned symptoms. Patient seen and evaluated in the emergency department. Lab and imaging studies reviewed. 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 Patient admitted to ICU due to increased risk of multisystem decompensation. Vascular surgery service consulted in the emergency department and the patient is initiated on a heparin drip. Patient found to have poor prognosis. Advanced care planning conducted in ED. Patient prognosis discussed with . Patient acknowledges understanding and agreement with care plan. Patient is confused and lethargic at the time of my evaluation but the patient has a positive gag reflex and is able to protect his airway without difficulty. 03/05. Spouse at bedside. He responds when called. ID consulted for sepsis 2/2 cellulitis vs parotitis. He is on anticoagulation. Maintained on antibiotics. He still has tom on left hip and will need to have this removed. Had hip replacement 02/14. Will get ortho for this. Discussed with spouse at bedside. 03/06. Sodium 164. Fluids switched to D5 water. Still maintain on IV an tibiotics. ID, nephrology and surgery following. Awaiting Ortho evaluation for staple removal. MRI of the neck ordered to rule out any underlying abscess. May need ENT evaluation 03/07. MRI shows parotitis with no abscess or fluid collection. Sodium increased to 171 yesterday so he had to be started on free water via NG tube. Currently on D5 water as well. Sodium this morning is 164. D5 water rate reduced to 100 cc/h. Nephrology is following. Orthopedic surgery also following for left hip replacement management. (1) Sepsis Current Visit: Yes Status: Acute Qualifiers: Severe sepsis acute organ dysfunction type: acute renal failure Plan to address problem: From neck infection Continue vancomycin and Unasyn. ID evaluation Vascular surgery following (2) Toxic metabolic encephalopathy Current Visit: Yes Status: Acute Plan to address problem: Continue IV antibiotics Monitoring (3) Acute kidney injury with acute tubular necrosis Current Visit: Yes Status: Acute Plan to address problem: Continues to improve with IV hydration Nephrology following closely (4) Urinary tract infection Current Visit: Yes Status: Acute Qualifiers: Encounter type: initial encounter Plan to address problem: On antibiotics (5) Lemierre syndrome Current Visit: Yes Status: Acute Plan to address problem: Vascular surgery on board MRI of the neck shows no abscess or fluid collection Continue anticoagulation. Plan to switch to oral antibiotics. Will discuss plan with surgery (6) Cellulitis, neck Current Visit: Yes Status: Acute Plan to address problem: Continue antibiotics (7) Hypernatremia Current Visit: Yes Status: Acute Plan to address problem: Continue D5 water at 100 cc/h Continue free water via NG tube for now Nephrology recommendations appreciated (8) Metabolic acidosis Current Visit: Yes Status: Acute Plan to address problem: Improved (9) DVT prophylaxis Current Visit: Yes Status: Acute Plan to address problem: SCD to bilateral lower extremities while in bed, continue therapeutic anticoagulation (10) Advance care planning Current Visit: Yes Status: Acute Plan to address problem: Disease education conducted, prognosis discussed. Patient is full code. Patient has very poor prognosis. Patient's acknowledges understanding and agreement with care plan, +30 minutes. History Interval history: Patient seen and examined at bedside this morning. Confused today. Sodium stable at 164 this morning. Hospitalist Physical - Constitutional Vitals: Temp Pulse Resp BP Pulse Ox 98.9 F 72 20 170/73 96 03/07/20 06:11 03/07/20 06:33 03/07/20 09:16 03/07/20 06:33 03/07/20 06:11 General appearance: Present: no acute distress - EENT Eyes: Present: PERRL - Neck Neck: Present: other (right jaw swelling) - Respiratory Respiratory: bilateral: CTA - Cardiovascular Heart Sounds: Present: S1 & S2 - Extremities Extremities: no ischemia - Abdominal General gastrointestinal: soft, non-tender, non-distended - Neurologic Neurologic: CNII-XII intact Results - Labs CBC & Chem 7: 03/07/20 00:22 03/07/20 06:56 Labs: Laboratory Last Values WBC 18.3 K/mm3 (4.5-11.0) H 03/07/20 00:22 RBC 3.41 M/mm3 (3.65-5.03) L 03/07/20 00:22 Hgb 10.1 gm/dl (11.8-15.2) L 03/07/20 00:22 Hct 31.8 % (35.5-45.6) L 03/07/20 00:22 MCV 93 fl (84-94) 03/07/20 00:22 MCH 30 pg (28-32) 03/07/20 00:22 MCHC 32 % (32-34) 03/07/20 00:22 RDW 16.3 % (13.2-15.2) H 03/07/20 00:22 Plt Count 517 K/mm3 (140-440) H 03/07/20 00:22 Lymph % (Auto) 8.4 % (13.4-35.0) L 03/07/20 00:22 Woodson % (Auto) 6.9 % (0.0-7.3) 03/07/20 00:22 Eos % (Auto) 0.2 % (0.0-4.3) 03/07/20 00:22 Baso % (Auto) 0.1 % (0.0-1.8) 03/07/20 00:22 Add Manual Diff Complete 03/04/20 13:38 Lymph # (Auto) 1.5 K/mm3 (1.2-5.4) 03/07/20 00:22 Woodson # (Auto) 1.3 K/mm3 (0.0-0.8) H 03/07/20 00:22 Total Counted 100 03/04/20 13:38 Eos # (Auto) 0.0 K/mm3 (0.0-0.4) 03/07/20 00:22 Seg Neuts % (Manual) 91.0 % (40.0-70.0) H 03/04/20 13:38 Baso # (Auto) 0.0 K/mm3 (0.0-0.1) 03/07/20 00:22 Band Neutrophils % 2.0 % 03/04/20 13:38 Lymphocytes % (Manual) 3.0 % (13.4-35.0) L 03/04/20 13:38 Reactive Lymphs % (Man) 0 % 03/04/20 13:38 Monocytes % (Manual) 4.0 % (0.0-7.3) 03/04/20 13:38 Eosinophils % (Manual) 0 % (0.0-4.3) 03/04/20 13:38 Basophils % (Manual) 0 % (0.0-1.8) 03/04/20 13:38 Metamyelocytes % 0 % 03/04/20 13:38 Myelocytes % 0 % 03/04/20 13:38 Promyelocytes % 0 % 03/04/20 13:38 Blast Cells % 0 % 03/04/20 13:38 Nucleated RBC % 1.0 % (0.0-0.9) H 03/04/20 13:38 Seg Neutrophils % 84.4 % (40.0-70.0) H 03/07/20 00:22 Seg Neutrophils # Man 29.0 K/mm3 (1.8-7.7) H 03/04/20 13:38 Band Neutrophils # 0.6 K/mm3 03/04/20 13:38 Lymphocytes # (Manual) 1.0 K/mm3 (1.2-5.4) L 03/04/20 13:38 Abs React Lymphs (Man) 0.0 K/mm3 03/04/20 13:38 Monocytes # (Manual) 1.3 K/mm3 (0.0-0.8) H 03/04/20 13:38 Eosinophils # (Manual) 0.0 K/mm3 (0.0-0.4) 03/04/20 13:38 Basophils # (Manual) 0.0 K/mm3 (0.0-0.1) 03/04/20 13:38 Metamyelocytes # 0.0 K/mm3 03/04/20 13:38 Myelocytes # 0.0 K/mm3 03/04/20 13:38 Promyelocytes # 0.0 K/mm3 03/04/20 13:38 Blast Cells # 0.0 K/mm3 03/04/20 13:38 Seg Neutrophils # 15.5 K/mm3 (1.8-7.7) H 03/07/20 00:22 WBC Morphology Not Reportable 03/04/20 13:38 Hypersegmented Neuts Not Reportable 03/04/20 13:38 Hyposegmented Neuts Not Reportable 03/04/20 13:38 Hypogranular Neuts Not Reportable 03/04/20 13:38 Smudge Cells Not Reportable 03/04/20 13:38 Toxic Granulation Not Reportable 03/04/20 13:38 Toxic Vacuolation Not Reportable 03/04/20 13:38 Dohle Bodies Not Reportable 03/04/20 13:38 Pelger-Huet Anomaly Not Reportable 03/04/20 13:38 Armand Rods Not Reportable 03/04/20 13:38 Platelet Estimate Consistent w auto 03/04/20 13:38 Clumped Platelets Not Reportable 03/04/20 13:38 Plt Clumps, EDTA Not Reportable 03/04/20 13:38 Large Platelets Not Reportable 03/04/20 13:38 Giant Platelets Not Reportable 03/04/20 13:38 Platelet Satelliting Not Reportable 03/04/20 13:38 Plt Morphology Comment Not Reportable 03/04/20 13:38 RBC Morphology Not Reportable 03/04/20 13:38 Dimorphic RBCs Not Reportable 03/04/20 13:38 Polychromasia Not Reportable 03/04/20 13:38 Hypochromasia Not Reportable 03/04/20 13:38 Poikilocytosis Not Reportable 03/04/20 13:38 Anisocytosis Few 03/04/20 13:38 Microcytosis Not Reportable 03/04/20 13:38 Macrocytosis Few 03/04/20 13:38 Spherocytes Not Reportable 03/04/20 13:38 Pappenheimer Bodies Not Reportable 03/04/20 13:38 Sickle Cells Not Reportable 03/04/20 13:38 Target Cells Not Reportable 03/04/20 13:38 Tear Drop Cells Not Reportable 03/04/20 13:38 Ovalocytes Not Reportable 03/04/20 13:38 Helmet Cells Not Reportable 03/04/20 13:38 [place] Bodies Not Reportable 03/04/20 13:38 Dow Rings Not Reportable 03/04/20 13:38 [place] Cells Not Reportable 03/04/20 13:38 Bite Cells Not Reportable 03/04/20 13:38 Crenated Cell Not Reportable 03/04/20 13:38 Elliptocytes Not Reportable 03/04/20 13:38 Acanthocytes (Spur) Not Reportable 03/04/20 13:38 Rouleaux Not Reportable 03/04/20 13:38 Hemoglobin C Crystals Not Reportable 03/04/20 13:38 Schistocytes Not Reportable 03/04/20 13:38 Malaria parasites Not Reportable 03/04/20 13:38 Torsten Bodies Not Reportable 03/04/20 13:38 Hem Pathologist Commnt No 03/04/20 13:38 PT 15.6 Sec. (12.2-14.9) H 03/04/20 13:38 INR 1.21 (0.87-1.13) H 03/04/20 13:38 APTT 33.0 Sec. (24.2-36.6) 03/04/20 13:38 Heparin Anti-Xa Level 0.41 U.I./ml (0.3-0.7) 03/06/20 18:12 Sodium 164 mmol/L (137-145) H* 03/07/20 06:56 Potassium 3.7 mmol/L (3.6-5.0) 03/07/20 06:56 Chloride 126.1 mmol/L (98-107) H 03/07/20 06:56 Carbon Dioxide 22 mmol/L (22-30) 03/07/20 06:56 Anion Gap 20 mmol/L 03/07/20 06:56 BUN 61 mg/dL (9-20) H 03/07/20 06:56 Creatinine 1.4 mg/dL (0.8-1.3) H 03/07/20 06:56 Estimated GFR > 60 ml/min 03/07/20 06:56 BUN/Creatinine Ratio 44 % 03/07/20 06:56 Glucose 137 mg/dL (75-100) H 03/07/20 06:56 Lactic Acid 1.40 mmol/L (0.7-2.0) 03/05/20 05:16 Osmolality 359 Mosm/kg 03/07/20 00:22 Magnesium 3.40 mg/dL (1.7-2.3) H 03/04/20 13:38 Calcium 8.9 mg/dL (8.4-10.2) 03/07/20 06:56 Total Bilirubin 0.40 mg/dL (0.1-1.2) 03/07/20 00:22 Total Creatine Kinase 82 units/L (55-170) 03/04/20 13:38 AST 22 units/L (5-40) 03/07/20 00:22 ALT 15 units/L (7-56) 03/07/20 00:22 Alkaline Phosphatase 158 units/L (35-129) H 03/07/20 00:22 Total Protein 7.2 g/dL (6.3-8.2) 03/07/20 00:22 Albumin 2.7 g/dL (3.9-5) L 03/07/20 00:22 Albumin/Globulin Ratio 0.6 % 03/07/20 00:22 Urine Color Ewa (Yellow) 03/04/20 13:55 Urine Turbidity Turbid (Clear) 03/04/20 13:55 Urine pH 5.0 (5.0-7.0) 03/04/20 13:55 Ur Specific [place] 1.017 (1.003-1.030) 03/04/20 13:55 Urine Protein 30 mg/dl mg/dL (Negative) 03/04/20 13:55 Urine Glucose (UA) Neg mg/dL (Negative) 03/04/20 13:55 Urine Ketones Neg mg/dL (Negative) 03/04/20 13:55 Urine Blood Sm (Negative) 03/04/20 13:55 Urine Nitrite Neg (Negative) 03/04/20 13:55 Urine Bilirubin Neg (Negative) 03/04/20 13:55 Urine Urobilinogen < 2.0 mg/dL (<2.0) 03/04/20 13:55 Ur Leukocyte Esterase Lg (Negative) 03/04/20 13:55 Urine WBC (Auto) > 182.0 /HPF (0.0-6.0) H 03/04/20 13:55 Urine RBC (Auto) 31.0 /HPF (0.0-6.0) 03/04/20 13:55 U Epithel Cells (Auto) 1.0 /HPF (0-13.0) 03/04/20 13:55 Urine Bacteria (Auto) 4+ /HPF (Negative) 03/04/20 13:55 Ur Transition Epith Cell 5 /HPF 03/04/20 13:55 Urine Mucus Few /HPF 03/04/20 13:55 Urine Osmolality 501 Mosm/kg 03/06/20 19:11 Random Vancomycin 7.8 ug/mL (0-40.0) 03/06/20 07:01 Salicylates < 0.3 mg/dL (2.8-20.0) L 03/04/20 13:38 Acetaminophen 5.0 ug/mL (10.0-30.0) L 03/04/20 13:38 Blood Type A POSITIVE 03/04/20 16:15 Antibody Screen Negative 03/04/20 16:15 Microbiology: Microbiology 03/06/20 18:12 Peripheral/Venous Blood Culture - Preliminary Culture in Progress 03/04/20 13:38 Peripheral/Venous Blood Culture - Preliminary Staphylococcus Aureus 03/04/20 13:38 Peripheral/Venous Blood Culture - Preliminary Staphylococcus Aureus 03/06/20 14:18 Peripheral/Venous Blood Culture - Preliminary Culture in Progress 03/04/20 Unknown Urine,Catheterized - Indwelling Catheter Urine Culture - Final - Diagnostic Impressions Diagnostic Impressions: Echocardiogram 03/06/20 11:55 Transthoracic Echocardiogram Indication: Bacteremia Eval for Vegetation BP: 173/83 HR: 357 Conclusions *The study quality is technically difficult. Poor accoustic windows. *Global left ventricular systolic function is normal. *The estimated ejection fraction is 60-65%. *There is trace of mitral regurgitation. *There is trace tricuspid regurgitation. Findings Procedure Info: The study quality is technically difficult. Patient unresponsive and combative during echo. The study is technically limited due to poor acoustic windows. The study is technically limited due to patient body habitus. The study was technically limited due to the patient's inability to lay in the left lateral decubitus position. Left Ventricle: The left ventricular chamber size is normal. There is no left ventricular hypertrophy. Global left ventricular systolic function is normal. The estimated ejection fraction is 60-65%. Left Atrium: The left atrial chamber size is normal. Right Ventricle: The right ventricular cavity size is normal. Right Atrium: The right atrial cavity size is normal. Aortic Valve: The aortic valve is trileaflet. The aortic valve leaflets are mildly thickened. There is no evidence of aortic regurgitation. There is no evidence of aortic stenosis. Mitral Valve: The mitral valve leaflets are mildly thickened. There is trace of mitral regurgitation. There is no evidence of mitral stenosis. Tricuspid Valve: There is trace tricuspid regurgitation. No pulmonary hypertension is noted. Pulmonic Valve: There is trace pulmonic regurgitation. Pericardium: There is no pericardial effusion. Aorta: There is no dilatation of the aortic root. Venous: The inferior vena cava appears normal in size. Measurements Chambers 2D Name Value Normal Range IVSd (2D) 0.56 cm (0.6 - 1.1) LVPWd (2D) 0.46 cm (0.6 - 1.1) LVIDd (2D) 4.68 cm (3.7 - 5.6) LVIDs (2D) 2.88 cm (2 - 3.8) LV FS (2D) 38.34 % - EF Teichholz (2D) 68.61 % - Ao root diameter (2D) 2.09 cm (2 - 3.7) Diastolic/Systolic Function Name Value Normal Range MV E-wave Vmax 0.6 m/sec - MV deceleration time 165.66 msec - MV A-wave Vmax 0.82 m/sec - MV E:A ratio 0.74 ratio - Aortic Valve Name Value Normal Range LVOT diameter 2.06 cm - Mitral Valve Name Value Normal Range MV PHT 65.46 msec - MVA (PHT) 3.36 cm2 - Tricuspid Valve Name Value Normal Range IVC diameter 1.1 cm (1.2 - 2.3) Pulmonic Valve/Qp:Qs Name Value Normal Range PV Vmax 1.46 m/sec - PV VTI 23.85 cm - PV peak gradient 8.5 mmHg - PV mean gradient 3.7 mmHg - NV end-diastolic Vmax 1.01 m/sec - RVOT Vmax 1.42 m/sec - RVOT VTI 23.28 cm - RVOT peak gradient 8.04 mmHg - Anguiano/IV: Voiding Method Indwelling Catheter IV Catheter Type [Right Upper Peripheral IV arm] IV Catheter Type [Right Hand] Peripheral IV IV Catheter Type [Right INT / Saline Lock Forearm] Active Medications - Current Medications Current Medications: Generic Name Dose Route Start Last Admin Trade Name Freq PRN Reason Stop Dose Admin Hydromorphone HCl 0.25 mg 03/04/20 15:51 03/07/20 09:16 Dilaudid IV 0.25 mg Q4H PRN Administration Pain, Moderate (4-6) Heparin Sodium/Sodium Chloride 25,000 unit in 500 mls @ 18 mls/hr 03/04/20 16:00 03/06/20 19:00 Heparin/ 0.45% Nacl-25,000 Unit/500 Ml IV 1,350 units/hr TITRATE DIPTI 27 mls/hr Titration Protocol 900 UNITS/HR Dextrose 1,000 mls @ 150 mls/hr 03/06/20 17:00 03/06/20 23:23 D5w IV 150 mls/hr DIRECT DIPTI Administration Vancomycin HCl 1 gm in 250 mls @ 166.667 mls/hr 03/07/20 10:00 Vancomycin/Ns 1 Gm/250 Ml IV Q24HR DIPTI Ampicillin Sodium/Sulbactam Sodium 3 gm in 100 mls @ 200 mls/hr 03/07/20 08:00 Unasyn/Ns 3 Gm/100 Ml IV Q8HR DIPTI Potassium Chloride 10 meq in 100 mls @ 100 mls/hr 03/07/20 08:00 03/07/20 09:15 Kcl 10meq/100ml IV 03/07/20 11:59 100 mls/hr Q1H DIPTI Administration Labetalol HCl 20 mg 03/05/20 03:05 03/07/20 06:33 Labetalol IV 20 mg Q6H PRN Administration Blood Pressure Sodium Chloride 10 ml 03/04/20 22:00 03/06/20 22:42 Sodium Chloride Flush Syringe 10 Ml IV 10 ml BID DIPTI Administration Sodium Chloride 10 ml 03/04/20 15:51 Sodium Chloride Flush Syringe 10 Ml IV PRN PRN LINE FLUSH Nutrition/Malnutrition Assess - Dietary Evaluation Nutrition/Malnutrition Findings: Nutrition Notes Start: 03/05/20 13:40 Freq: Status: Active Protocol: Document 03/05/20 13:40 [email or web address] (Rec: 03/05/20 14:43 [email or web address]) Co-Sign 03/05/20 13:40 NHALL Nutrition Notes Need for Assessment generated from: forest resource specialist,MST,Low BMI Initial or Follow up Assessment Current Diagnosis Acute Kidney Injury,Sepsis, Hypertension Other Pertinent Diagnosis UTI, Metabolic acidosis, hypernatremia, SIRS, Cellulitis Current Diet NPO Labs/Tests Na 160 Cr 3.9 BUN 129 BG 157 Mg 3.4 Pertinent Medications D5/0.45ns at 75ml/hr Height 6 ft 1 in Weight 61.2 kg [place] Body Weight (kg) 83.63 BMI 17.8 Weight Status Underweight Subjective/Other Information Pt screened for MST and low BMI. Per MD, pt to remain NPO at this time. Burn Absent Trauma Absent GI Symptoms None Difficulty In Swallowing Current % PO Negligible Minimum of two criteria No #1 Nutrition Diagnosis Inadequate oral intake Etiology AMS As Evidenced by Signs and Symptoms Pt NPO Is patient on ventilator? No Is Patient Ambulatory and/or Out of Bed No REE-([facility]-confined to bed) 1699.320 Kcal/Kg value to use for calculation 34 Approximate Energy Requirements Using 2081 kcal/Kg Calculation Used for Recommendations Kcal/kg Additional Notes Protein needs 73-92g (1.2-1.5g /kg) Fluid needs 1ml/kcal Nutrition Intervention Change Diet Order: advance diet when medically feasible Goal #1 Diet advancement to meet nutrient needs Goal #2 Wt maintenance or gain Anticipated Discharge Needs: Undetermined at this time Follow-Up By: 03/07/20 Additional Comments F/U for diet advancement or plan of care.
--- NOTE | 2020-03-07 11:16 | Progress Note ---
Assessment and Plan Cultures: Blood culture 03/04/2020 Staphylococcus aureus 2 out of 4 bottles Urine culture 03/04/2020 10-100,000 CFU normal skin joseph. Blood culture 03/06/2020 pending Assessment: 74 years old male with history of hypertension, hypothyroidism, Alzheimer dementia, resident of a [facility] after recent fall with subsequent hip fracture and left arm injury, wearing a sling since 02/14/2020. Admitted on 03/04/2020 due to worsening confusion and right neck swelling for 48 hours: #Severe sepsis: Present on admission with tachycardia, high leukocytosis, acute kidney injury, elevated LFTs, secondary to acute likely suppurative right parotitis +/-UTI +/-bacteremia. #Staphylococcus aureus bacteremia: Likely true bacteremia secondary to suppurative parotitis. Transthoracic echo no obvious vegetation. EF 60-65. #Acute right likely suppurative parotitis: Clinically improving. Patient at high risk given age, dehydration and use of anticholinergic agents. CT of the neck with prominent enlargement of the right parotid gland, associated with surrounding cellulitic changes in the parotid region and extending downward along the right lateral aspect of the neck. There is no evidence of fluid collection or abscess. In the setting this could be secondary to MRSA or oral anaerobes. #Acute right IJ thrombus: Now with positive blood cultures it may represent septic thrombophlebitis in the setting of bacteremia. Usually related to an IV catheter, unclear etiology, possible compression from sling. It is not a common presentation of acute parotitis. #Acute UTI: Urine cultures growing normal skin joseph. #Transaminitis: Likely secondary to sepsis. Improving. #Reactive thrombocytosis: Secondary to sepsis. #Acute encephalopathy: Likely secondary to sepsis. Improving #Acute kidney injury: Secondary to sepsis, already improving Recommendations: -Right parotitis is clinically improving -this is the typical picture of MRSA suppurative parotitis with bacteremia. -Neck MRI requested -Follow-up blood cultures growing Staphylococcus aureus -Follow-up repeat blood cultures -Continue vancomycin with PK consult -renally adjusted -Continue Unasyn IV for now -renally adjusted -Warm compresses to the right parotid -discussed with nurse -Anticoagulation per primary team -Vascular on board -Monitor mentation Will follow. Sofia Peterson MD Infectious Diseases Allergy Nurse [facility], [place] [facility] M [phone] O [phone] Subjective Principal diagnosis: Sepsis Objective - Constitutional Vitals: Vital Signs Temp Pulse Resp BP Pulse Ox 98.9 F 72 20 170/73 96 03/07/20 06:11 03/07/20 06:33 03/07/20 09:16 03/07/20 06:33 03/07/20 06:11 Temperature -Last 24 Hours Temperature 98.9 F Temperature 97.6 F Temperature 98.2 F Temperature 98.8 F - Labs CBC & Chem 7: 03/07/20 00:22 03/07/20 06:56 Labs: Abnormal lab results 03/06/20 03/06/20 03/06/20 Range/Units 14:18 18:12 19:40 WBC (4.5-11.0) K/mm3 RBC (3.65-5.03) M/mm3 Hgb (11.8-15.2) gm/dl Hct (35.5-45.6) % RDW (13.2-15.2) % Plt Count (140-440) K/mm3 Lymph % (Auto) (13.4-35.0) % [place] # (Auto) (0.0-0.8) K/mm3 Seg Neutrophils % (40.0-70.0) % Seg Neutrophils # (1.8-7.7) K/mm3 Sodium 167 H* 170 H* 171 H* (137-145) mmol/L Potassium 3.5 L (3.6-5.0) mmol/L Chloride 130.6 H 132.4 H 132.2 H (98-107) mmol/L Carbon Dioxide 21 L (22-30) mmol/L BUN 84 H 73 H (9-20) mg/dL Creatinine 2.0 H 1.8 H (0.8-1.3) mg/dL Glucose 138 H 166 H (75-100) mg/dL Alkaline Phosphatase (35-129) units/L Albumin (3.9-5) g/dL 03/07/20 03/07/20 03/07/20 Range/Units 00:22 00:22 06:56 WBC 18.3 H (4.5-11.0) K/mm3 RBC 3.41 L (3.65-5.03) M/mm3 Hgb 10.1 L (11.8-15.2) gm/dl Hct 31.8 L (35.5-45.6) % RDW 16.3 H (13.2-15.2) % Plt Count 517 H (140-440) K/mm3 Lymph % (Auto) 8.4 L (13.4-35.0) % [place] # (Auto) 1.3 H (0.0-0.8) K/mm3 Seg Neutrophils % 84.4 H (40.0-70.0) % Seg Neutrophils # 15.5 H (1.8-7.7) K/mm3 Sodium 164 H* 164 H* (137-145) mmol/L Potassium 3.3 L D (3.6-5.0) mmol/L Chloride 124.9 H 126.1 H (98-107) mmol/L Carbon Dioxide (22-30) mmol/L BUN 64 H 61 H (9-20) mg/dL Creatinine 1.6 H 1.4 H (0.8-1.3) mg/dL Glucose 208 H 137 H (75-100) mg/dL Alkaline Phosphatase 158 H (35-129) units/L Albumin 2.7 L (3.9-5) g/dL
[2020-03-07] MEDS: HEPARIN/ 0.45% NACL DRIP 25,000 UNIT/500 ML BAG IV SCH (11:54)
[2020-03-07] MEDS: VANCOMYCIN/NS 1 GM/250 ML 1 GM/250 ML BAG IV SCH (12:02)
[2020-03-07 14:44] LABS: BUN/Creatinine Ratio 38; Blood Urea Nitrogen 49 mg/dL (9-20); Calcium 8.5 mg/dL (8.4-10.2); Hemolysis Index 13
[2020-03-07] MEDS ORDERED: amLODIPine 10 MG TAB PO ONE (15:09)
[2020-03-08 01:53] LABS: Basophils % (Auto) 0.1 % (0.0-1.8); Eosinophils # (Auto) 0.2 K/mm3 (0.0-0.4); Eosinophils % (Auto) 1.2 % (0.0-4.3); Hematocrit 32.1 % (35.5-45.6); Hemoglobin 10.3 gm/dl (11.8-15.2); Lymphocytes # (Auto) 1.9 K/mm3 (1.2-5.4); Lymphocytes % (Auto) 10.2 % (13.4-35.0); Mean Corpuscular HGB Conc 32 % (32-34); Mean Corpuscular Volume 93 fl (84-94); Monocytes # (Auto) 0.9 K/mm3 (0.0-0.8); Monocytes % (Auto) 4.8 % (0.0-7.3); Platelet Count 426 K/mm3 (140-440); Red Blood Count 3.47 M/mm3 (3.65-5.03); Red Cell Distribution Width 15.8 % (13.2-15.2)
[2020-03-08 02:06] LABS: Alanine Aminotransferase 14 units/L (7-56); Albumin 2.9 g/dL (3.9-5); BUN/Creatinine Ratio 35; Blood Urea Nitrogen 38 mg/dL (9-20); Calcium 8.3 mg/dL (8.4-10.2); Hemolysis Index 12
[2020-03-08] MEDS: HEPARIN/ 0.45% NACL DRIP 25,000 UNIT/500 ML BAG IV SCH ×2 (06:11→21:51)
--- NOTE | 2020-03-08 09:12 | Progress Note ---
Assessment and Plan # Acute Kidney Injury, Azotemia: suspect pre-renal etiology given history of limited oral intake, overall poor conditioning. Creatinine improved from 5.4->3.9->2.0->1.4->1.1 with IVF, now off. Renal ultrasound without acute obstruction. Good urine output noted - on D5w as below - strict Is/Os - avoid nephrotoxins - urinalysis reviewed, defer serologic workup - BP previously reasonable, now on higher side - no indication for renal replacement therapy currently # Hypernatremia, Hyperchloremia: free water deficit noted, sodium has worsened from 154->160->164->158 previously on D5 1/2NS, agree with ongoing use D5W, can provide free water with tube feeds if applicable # Sepsis: IVF, management per primary, appreciate ID, vasc, pulm. 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 Patient now DNR Subjective Date of service: 03/08/20 Principal diagnosis: Sepsis Interval history: No acute changes noted, appears in same mental status, drowsy. MRSA + Objective - Exam Narrative Exam: Constitutional: confused, ill appearing Head: NC/AT Neck: supple Lungs: clear to auscultation CV: RRR, no M/R/G Abdomen: soft, non-tender, bowel sounds present Back: nontender Extremities: no edema, pulses WNL Skin: intact Neuro: lethargic, sleepy - Vital Signs Vital signs: Vital Signs - 12hr 03/07/20 03/08/20 22:31 06:15 Temperature 99.0 F 98.0 F Pulse Rate 70 45 L Respiratory 18 20 Rate Blood Pressure 140/87 162/55 O2 Sat by Pulse 95 91 Oximetry - Lab 03/08/20 00:47 03/08/20 00:47 Most recent lab results Magnesium 3.40 mg/dL (1.7-2.3) H 03/04/20 13:38 Calcium 8.3 mg/dL (8.4-10.2) L 03/08/20 00:47 Medications & Allergies - Medications Allergies/Adverse Reactions: Allergies duloxetine [From Cymbalta] Allergy (Verified 03/04/20 12:47) Unknown lamotrigine [From Lamictal] Allergy (Verified 03/04/20 12:47) Unknown milk Allergy (Verified 03/04/20 12:47) Unknown ofloxacin Allergy (Verified 03/04/20 12:47) Unknown pregabalin [From Lyrica] Allergy (Verified 03/04/20 12:47) Unknown Home Medications: Home Medications Medication Instructions Recorded Confirmed Last Taken Type Acetaminophen [Tylenol] 650 mg PO Q6H PRN 03/04/20 03/04/20 Unknown History Aspirin [Adult Aspirin] 81 mg PO DAILY 03/04/20 03/04/20 Unknown History Cholecalciferol (Vitamin D3) 2,000 unit PO QDAY 03/04/20 03/04/20 Unknown History [Vitamin D3 2,000 UNIT CAP] Enoxaparin [Lovenox] 40 mg SQ QDAY 03/04/20 03/04/20 Unknown History HYDROcodone/APAP 5-325 [[place] 1 each PO Q8HR PRN 03/04/20 03/04/20 Unknown History 5/325] LORazepam [Lorazepam] 0.5 mg PO DAILY 03/04/20 03/04/20 Unknown History Lactobacillus Rhamnosus GG 1 each PO QDAY 03/04/20 03/04/20 Unknown History [Culturelle] Levothyroxine [Synthroid] 75 mcg PO QAM 03/04/20 03/04/20 Unknown History Melatonin 1 mg PO QHS 03/04/20 03/04/20 Unknown History Polyethylene Glycol 3350 17 gm PO DAILY PRN 03/04/20 03/04/20 Unknown History [Powderlax] Sertraline [Zoloft] 100 mg PO QDAY 03/04/20 03/04/20 Unknown History Tamsulosin [Flomax] 0.4 mg PO QDAY 03/04/20 03/04/20 Unknown History lisinopriL [Zestril] 20 mg PO QDAY 03/04/20 03/04/20 Unknown History risperiDONE [RisperDAL] 0.25 mg PO QHS 03/04/20 03/04/20 Unknown History Active Medications: Generic Name Dose Route Start Last Admin Trade Name Freq PRN Reason Stop Dose Admin Amlodipine Besylate 10 mg 03/08/20 10:00 Amlodipine PO QDAY DIPTI Hydromorphone HCl 0.25 mg 03/04/20 15:51 03/07/20 09:16 Dilaudid IV 0.25 mg Q4H PRN Administration Pain, Moderate (4-6) Heparin Sodium/Sodium Chloride 25,000 unit in 500 mls @ 18 mls/hr 03/04/20 16:00 03/08/20 06:11 Heparin/ 0.45% Nacl-25,000 Unit/500 Ml IV 1,350 units/hr TITRATE DIPTI 27 mls/hr Administration Protocol 900 UNITS/HR Dextrose 1,000 mls @ 150 mls/hr 03/06/20 17:00 03/07/20 06:04 D5w IV Infused DIRECT DIPTI Infusion Vancomycin HCl 1 gm in 250 mls @ 166.667 mls/hr 03/07/20 10:00 03/07/20 12:02 Vancomycin/Ns 1 Gm/250 Ml IV 166.667 mls/hr Q24HR DIPTI Administration Labetalol HCl 20 mg 03/05/20 03:05 03/07/20 06:33 Labetalol IV 20 mg Q6H PRN Administration Blood Pressure Risperidone 0.25 mg 03/08/20 22:00 Risperdal PO QHS DIPTI Sodium Chloride 10 ml 03/04/20 22:00 03/07/20 22:19 Sodium Chloride Flush Syringe 10 Ml IV Not Given BID DIPTI Sodium Chloride 10 ml 03/04/20 15:51 Sodium Chloride Flush Syringe 10 Ml IV PRN PRN LINE FLUSH Tamsulosin HCl 0.4 mg 03/08/20 10:00 Flomax PO QDAY DIPTI
--- NOTE | 2020-03-08 09:23 | Progress Note ---
Assessment and Plan Assessment and plan: HPI on admission 74 YO Male Group Home Facility Resident at [facility] with HTN, Hypothyroidism, Alzheimers Dementia with A FAST Score of 7E and PPS of 30% who is currently bedbound and requires 6/6 assistance with activities of daily living, Debility presents to ED for evaluation. Patient is nonverbal, lethargic and is unable to provide history at the time of my evaluation. Patient is at bedside during exam and interview and provides history. As per the patient has experienced a rapid decline in his state of health after suffering a fall complicated by hip fracture on February 13. Patient reports increased confusion as well as right neck swelling over the past 2 days with progressively worsening symptoms over the same timeframe. EMS was notified and upon arrival the patient was found to be in distress and subsequently transported to [facility] for further care and evaluation of the aforementioned symptoms. Patient seen and evaluated in the emergency department. Lab and imaging studies reviewed. 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 Patient admitted to ICU due to increased risk of multisystem decompensation. Vascular surgery service consulted in the emergency department and the patient is initiated on a heparin drip. Patient found to have poor prognosis. Advanced care planning conducted in ED. Patient prognosis discussed with . Patient acknowledges understanding and agreement with care plan. Patient is confused and lethargic at the time of my evaluation but the patient has a positive gag reflex and is able to protect his airway without difficulty. 03/05. Spouse at bedside. He responds when called. ID consulted for sepsis 2/2 cellulitis vs parotitis. He is on anticoagulation. Maintained on antibiotics. He still has tom on left hip and will need to have this removed. Had hip replacement 02/14. Will get ortho for this. Discussed with spouse at bedside. 03/06. Sodium 164. Fluids switched to D5 water. Still maintain on IV an tibiotics. ID, nephrology and surgery following. Awaiting Ortho evaluation for staple removal. MRI of the neck ordered to rule out any underlying abscess. May need ENT evaluation 03/07. MRI shows parotitis with no abscess or fluid collection. Sodium increased to 171 yesterday so he had to be started on free water via NG tube. Currently on D5 water as well. Sodium this morning is 164. D5 water rate reduced to 100 cc/h. Nephrology is following. Orthopedic surgery also following for left hip replacement management. 03/08. Slightly more alert today. Sodium 158 this AM. Will monitor for now and stop NGT free water if it continues to improve. BC grew MRSA - he is on antibiotics and ID is following. Resumed BP medications. Cr back to baseline. (1) MRSA bacteremia Current Visit: Yes Status: Acute Qualifiers: Severe sepsis acute organ dysfunction type: acute renal failure Plan to address problem: From neck infection Continue vancomycin ID and Vascular surgery following (2) Toxic metabolic encephalopathy Current Visit: Yes Status: Acute Plan to address problem: Continue IV antibiotics Monitoring (3) Acute kidney injury with acute tubular necrosis Current Visit: Yes Status: Acute Plan to address problem: Resolved Nephrology following closely (4) Urinary tract infection Current Visit: Yes Status: Acute Qualifiers: Encounter type: initial encounter Plan to address problem: On antibiotics. (5) Lemierre syndrome Current Visit: Yes Status: Acute Plan to address problem: Vascular surgery on board MRI of the neck shows no abscess or fluid collection. Continue anticoagulation. Plan to switch to oral antibiotics. Will discuss plan with surgery (6) Cellulitis, neck Current Visit: Yes Status: Acute Plan to address problem: Continue antibiotics (7) Hypernatremia Current Visit: Yes Status: Acute Plan to address problem: Improving Continue D5 water for now Continue free water via NG tube for now Nephrology recommendations appreciated (8) Metabolic acidosis Current Visit: Yes Status: Acute Plan to address problem: Resolved (9) DVT prophylaxis Current Visit: Yes Status: Acute Plan to address problem: SCD to bilateral lower extremities while in bed, continue therapeutic anticoagulation (10) Advance care planning Current Visit: Yes Status: Acute Plan to address problem: Disease education conducted, prognosis discussed. Patient is full code. Patient has very poor prognosis. Patient's acknowledges understanding and agreement with care plan, +30 minutes. History Interval history: Patient seen and examined at bedside this morning. Appears more alert compared with yesterday. BC +ve MRSA. Sodium improved - 158 this morning. Hospitalist Physical - Constitutional Vitals: Temp Pulse Resp BP Pulse Ox 98.0 F 45 L 20 162/55 91 03/08/20 06:15 03/08/20 06:15 03/08/20 06:15 03/08/20 06:15 03/08/20 06:15 General appearance: Present: no acute distress - EENT Eyes: Present: PERRL - Neck Neck: Present: other (Right jaw swelling) - Respiratory Respiratory: bilateral: CTA - Cardiovascular Heart Sounds: Present: S1 & S2 - Extremities Extremities: No edema - Abdominal General gastrointestinal: soft, non-tender, non-distended, normal bowel sounds - Neurologic Neurologic: CNII-XII intact Results - Labs CBC & Chem 7: 03/08/20 00:47 03/08/20 00:47 Labs: Laboratory Last Values WBC 18.6 K/mm3 (4.5-11.0) H 03/08/20 00:47 RBC 3.47 M/mm3 (3.65-5.03) L 03/08/20 00:47 Hgb 10.3 gm/dl (11.8-15.2) L 03/08/20 00:47 Hct 32.1 % (35.5-45.6) L 03/08/20 00:47 MCV 93 fl (84-94) 03/08/20 00:47 MCH 30 pg (28-32) 03/08/20 00:47 MCHC 32 % (32-34) 03/08/20 00:47 RDW 15.8 % (13.2-15.2) H 03/08/20 00:47 Plt Count 426 K/mm3 (140-440) 03/08/20 00:47 Lymph % (Auto) 10.2 % (13.4-35.0) L 03/08/20 00:47 [place] % (Auto) 4.8 % (0.0-7.3) 03/08/20 00:47 Eos % (Auto) 1.2 % (0.0-4.3) 03/08/20 00:47 Baso % (Auto) 0.1 % (0.0-1.8) 03/08/20 00:47 Lymph # (Auto) 1.9 K/mm3 (1.2-5.4) 03/08/20 00:47 [place] # (Auto) 0.9 K/mm3 (0.0-0.8) H 03/08/20 00:47 Eos # (Auto) 0.2 K/mm3 (0.0-0.4) 03/08/20 00:47 Baso # (Auto) 0.0 K/mm3 (0.0-0.1) 03/08/20 00:47 Add Manual Diff Complete 03/04/20 13:38 Total Counted 100 03/04/20 13:38 Seg Neutrophils % 83.7 % (40.0-70.0) H 03/08/20 00:47 Seg Neuts % (Manual) 91.0 % (40.0-70.0) H 03/04/20 13:38 Band Neutrophils % 2.0 % 03/04/20 13:38 Lymphocytes % (Manual) 3.0 % (13.4-35.0) L 03/04/20 13:38 Reactive Lymphs % (Man) 0 % 03/04/20 13:38 Monocytes % (Manual) 4.0 % (0.0-7.3) 03/04/20 13:38 Eosinophils % (Manual) 0 % (0.0-4.3) 03/04/20 13:38 Basophils % (Manual) 0 % (0.0-1.8) 03/04/20 13:38 Metamyelocytes % 0 % 03/04/20 13:38 Myelocytes % 0 % 03/04/20 13:38 Promyelocytes % 0 % 03/04/20 13:38 Blast Cells % 0 % 03/04/20 13:38 Nucleated RBC % 1.0 % (0.0-0.9) H 03/04/20 13:38 Seg Neutrophils # 15.6 K/mm3 (1.8-7.7) H 03/08/20 00:47 Seg Neutrophils # Man 29.0 K/mm3 (1.8-7.7) H 03/04/20 13:38 Band Neutrophils # 0.6 K/mm3 03/04/20 13:38 Lymphocytes # (Manual) 1.0 K/mm3 (1.2-5.4) L 03/04/20 13:38 Abs React Lymphs (Man) 0.0 K/mm3 03/04/20 13:38 Hypersegmented Neuts Not Reportable 03/04/20 13:38 Hyposegmented Neuts Not Reportable 03/04/20 13:38 Monocytes # (Manual) 1.3 K/mm3 (0.0-0.8) H 03/04/20 13:38 Hypogranular Neuts Not Reportable 03/04/20 13:38 Eosinophils # (Manual) 0.0 K/mm3 (0.0-0.4) 03/04/20 13:38 Basophils # (Manual) 0.0 K/mm3 (0.0-0.1) 03/04/20 13:38 Metamyelocytes # 0.0 K/mm3 03/04/20 13:38 Myelocytes # 0.0 K/mm3 03/04/20 13:38 Promyelocytes # 0.0 K/mm3 03/04/20 13:38 Blast Cells # 0.0 K/mm3 03/04/20 13:38 Smudge Cells Not Reportable 03/04/20 13:38 WBC Morphology Not Reportable 03/04/20 13:38 Toxic Granulation Not Reportable 03/04/20 13:38 Toxic Vacuolation Not Reportable 03/04/20 13:38 Dohle Bodies Not Reportable 03/04/20 13:38 Pelger-Huet Anomaly Not Reportable 03/04/20 13:38 Armand Rods Not Reportable 03/04/20 13:38 Clumped Platelets Not Reportable 03/04/20 13:38 Plt Clumps, EDTA Not Reportable 03/04/20 13:38 Large Platelets Not Reportable 03/04/20 13:38 Giant Platelets Not Reportable 03/04/20 13:38 Platelet Satelliting Not Reportable 03/04/20 13:38 Plt Morphology Comment Not Reportable 03/04/20 13:38 RBC Morphology Not Reportable 03/04/20 13:38 Dimorphic RBCs Not Reportable 03/04/20 13:38 Polychromasia Not Reportable 03/04/20 13:38 Hypochromasia Not Reportable 03/04/20 13:38 Poikilocytosis Not Reportable 03/04/20 13:38 Microcytosis Not Reportable 03/04/20 13:38 Spherocytes Not Reportable 03/04/20 13:38 Pappenheimer Bodies Not Reportable 03/04/20 13:38 Sickle Cells Not Reportable 03/04/20 13:38 Target Cells Not Reportable 03/04/20 13:38 Tear Drop Cells Not Reportable 03/04/20 13:38 Ovalocytes Not Reportable 03/04/20 13:38 Helmet Cells Not Reportable 03/04/20 13:38 [place] Bodies Not Reportable 03/04/20 13:38 [place] Rings Not Reportable 03/04/20 13:38 Cl[place] Cells Not Reportable 03/04/20 13:38 Bite Cells Not Reportable 03/04/20 13:38 Crenated Cell Not Reportable 03/04/20 13:38 Elliptocytes Not Reportable 03/04/20 13:38 Acanthocytes (Spur) Not Reportable 03/04/20 13:38 Platelet Estimate Consistent w auto 03/04/20 13:38 Rouleaux Not Reportable 03/04/20 13:38 Hemoglobin C Crystals Not Reportable 03/04/20 13:38 Schistocytes Not Reportable 03/04/20 13:38 Malaria parasites Not Reportable 03/04/20 13:38 Anisocytosis Few 03/04/20 13:38 Macrocytosis Few 03/04/20 13:38 [place] Bodies Not Reportable 03/04/20 13:38 Hem Pathologist Commnt No 03/04/20 13:38 PT 15.6 Sec. (12.2-14.9) H 03/04/20 13:38 INR 1.21 (0.87-1.13) H 03/04/20 13:38 APTT 33.0 Sec. (24.2-36.6) 03/04/20 13:38 Heparin Anti-Xa Level 0.60 U.I./ml (0.3-0.7) 03/07/20 19:16 Sodium 158 mmol/L (137-145) H 03/08/20 00:47 Potassium 4.3 mmol/L (3.6-5.0) 03/08/20 00:47 Chloride 118.9 mmol/L (98-107) H 03/08/20 00:47 Carbon Dioxide 27 mmol/L (22-30) 03/08/20 00:47 Anion Gap 16 mmol/L 03/08/20 00:47 BUN 38 mg/dL (9-20) H 03/08/20 00:47 Creatinine 1.1 mg/dL (0.8-1.3) 03/08/20 00:47 Estimated GFR > 60 ml/min 03/08/20 00:47 BUN/Creatinine Ratio 35 % 03/08/20 00:47 Glucose 118 mg/dL (75-100) H 03/08/20 00:47 Lactic Acid 1.40 mmol/L (0.7-2.0) 03/05/20 05:16 Osmolality 359 Mosm/kg 03/07/20 00:22 Magnesium 3.40 mg/dL (1.7-2.3) H 03/04/20 13:38 Calcium 8.3 mg/dL (8.4-10.2) L 03/08/20 00:47 Total Bilirubin 0.50 mg/dL (0.1-1.2) 03/08/20 00:47 Total Creatine Kinase 82 units/L (55-170) 03/04/20 13:38 AST 24 units/L (5-40) 03/08/20 00:47 ALT 14 units/L (7-56) 03/08/20 00:47 Alkaline Phosphatase 154 units/L (35-129) H 03/08/20 00:47 Total Protein 6.5 g/dL (6.3-8.2) 03/08/20 00:47 Albumin 2.9 g/dL (3.9-5) L 03/08/20 00:47 Albumin/Globulin Ratio 0.8 % 03/08/20 00:47 Urine Color [place] (Yellow) 03/04/20 13:55 Urine Turbidity Turbid (Clear) 03/04/20 13:55 Urine pH 5.0 (5.0-7.0) 03/04/20 13:55 Ur Specific [place] 1.017 (1.003-1.030) 03/04/20 13:55 Urine Protein 30 mg/dl mg/dL (Negative) 03/04/20 13:55 Urine Glucose (UA) Neg mg/dL (Negative) 03/04/20 13:55 Urine Ketones Neg mg/dL (Negative) 03/04/20 13:55 Urine Blood Sm (Negative) 03/04/20 13:55 Urine Nitrite Neg (Negative) 03/04/20 13:55 Urine Bilirubin Neg (Negative) 03/04/20 13:55 Urine Urobilinogen < 2.0 mg/dL (<2.0) 03/04/20 13:55 Ur Leukocyte Esterase Lg (Negative) 03/04/20 13:55 Urine WBC (Auto) > 182.0 /HPF (0.0-6.0) H 03/04/20 13:55 Urine RBC (Auto) 31.0 /HPF (0.0-6.0) 03/04/20 13:55 U Epithel Cells (Auto) 1.0 /HPF (0-13.0) 03/04/20 13:55 Urine Bacteria (Auto) 4+ /HPF (Negative) 03/04/20 13:55 Ur Transition Epith Cell 5 /HPF 03/04/20 13:55 Urine Mucus Few /HPF 03/04/20 13:55 Urine Osmolality 501 Mosm/kg 03/06/20 19:11 Random Vancomycin 7.8 ug/mL (0-40.0) 03/06/20 07:01 Salicylates < 0.3 mg/dL (2.8-20.0) L 03/04/20 13:38 Acetaminophen 5.0 ug/mL (10.0-30.0) L 03/04/20 13:38 Blood Type A POSITIVE 03/04/20 16:15 Antibody Screen Negative 03/04/20 16:15 Microbiology: Microbiology 03/06/20 18:12 Peripheral/Venous Blood Culture - Preliminary NO GROWTH AFTER 24 HOURS 03/06/20 14:18 Peripheral/Venous Blood Culture - Preliminary NO GROWTH AFTER 24 HOURS 03/04/20 13:38 Peripheral/Venous Blood Culture - Preliminary Methicillin Resist S. Aureus 03/04/20 13:38 Peripheral/Venous Blood Culture - Preliminary Methicillin Resist S. Aureus - Diagnostic Impressions Diagnostic Impressions: Echocardiogram 03/06/20 11:55 Transthoracic Echocardiogram Indication: Bacteremia Eval for Vegetation BP: 173/83 HR: 357 Conclusions *The study quality is technically difficult. Poor accoustic windows. *Global left ventricular systolic function is normal. *The estimated ejection fraction is 60-65%. *There is trace of mitral regurgitation. *There is trace tricuspid regurgitation. Findings Procedure Info: The study quality is technically difficult. Patient unresponsive and combative during echo. The study is technically limited due to poor acoustic windows. The study is technically limited due to patient body habitus. The study was technically limited due to the patient's inability to lay in the left lateral decubitus position. Left Ventricle: The left ventricular chamber size is normal. There is no left ventricular hypertrophy. Global left ventricular systolic function is normal. The estimated ejection fraction is 60-65%. Left Atrium: The left atrial chamber size is normal. Right Ventricle: The right ventricular cavity size is normal. Right Atrium: The right atrial cavity size is normal. Aortic Valve: The aortic valve is trileaflet. The aortic valve leaflets are mildly thickened. There is no evidence of aortic regurgitation. There is no evidence of aortic stenosis. Mitral Valve: The mitral valve leaflets are mildly thickened. There is trace of mitral regurgitation. There is no evidence of mitral stenosis. Tricuspid Valve: There is trace tricuspid regurgitation. No pulmonary hypertension is noted. Pulmonic Valve: There is trace pulmonic regurgitation. Pericardium: There is no pericardial effusion. Aorta: There is no dilatation of the aortic root. Venous: The inferior vena cava appears normal in size. Measurements Chambers 2D Name Value Normal Range IVSd (2D) 0.56 cm (0.6 - 1.1) LVPWd (2D) 0.46 cm (0.6 - 1.1) LVIDd (2D) 4.68 cm (3.7 - 5.6) LVIDs (2D) 2.88 cm (2 - 3.8) LV FS (2D) 38.34 % - EF Teichholz (2D) 68.61 % - Ao root diameter (2D) 2.09 cm (2 - 3.7) Diastolic/Systolic Function Name Value Normal Range MV E-wave Vmax 0.6 m/sec - MV deceleration time 165.66 msec - MV A-wave Vmax 0.82 m/sec - MV E:A ratio 0.74 ratio - Aortic Valve Name Value Normal Range LVOT diameter 2.06 cm - Mitral Valve Name Value Normal Range MV PHT 65.46 msec - MVA (PHT) 3.36 cm2 - Tricuspid Valve Name Value Normal Range IVC diameter 1.1 cm (1.2 - 2.3) Pulmonic Valve/Qp:Qs Name Value Normal Range PV Vmax 1.46 m/sec - PV VTI 23.85 cm - PV peak gradient 8.5 mmHg - PV mean gradient 3.7 mmHg - [place] end-diastolic Vmax 1.01 m/sec - RVOT Vmax 1.42 m/sec - RVOT VTI 23.28 cm - RVOT peak gradient 8.04 mmHg - Anguiano/IV: Voiding Method Indwelling Catheter IV Catheter Type [Right Upper Peripheral IV arm] IV Catheter Type [Right Hand] Peripheral IV IV Catheter Type [Right INT / Saline Lock Forearm] Active Medications - Current Medications Current Medications: Generic Name Dose Route Start Last Admin Trade Name Freq PRN Reason Stop Dose Admin Amlodipine Besylate 10 mg 03/08/20 10:00 Amlodipine PO QDAY DIPTI Hydromorphone HCl 0.25 mg 03/04/20 15:51 03/07/20 09:16 Dilaudid IV 0.25 mg Q4H PRN Administration Pain, Moderate (4-6) Heparin Sodium/Sodium Chloride 25,000 unit in 500 mls @ 18 mls/hr 03/04/20 16:00 03/08/20 06:11 Heparin/ 0.45% Nacl-25,000 Unit/500 Ml IV 1,350 units/hr TITRATE DIPTI 27 mls/hr Administration Protocol 900 UNITS/HR Dextrose 1,000 mls @ 150 mls/hr 03/06/20 17:00 03/07/20 06:04 D5w IV Infused DIRECT DIPTI Infusion Vancomycin HCl 1 gm in 250 mls @ 166.667 mls/hr 03/07/20 10:00 03/07/20 12:02 Vancomycin/Ns 1 Gm/250 Ml IV 166.667 mls/hr Q24HR DIPTI Administration Labetalol HCl 20 mg 03/05/20 03:05 03/07/20 06:33 Labetalol IV 20 mg Q6H PRN Administration Blood Pressure Risperidone 0.25 mg 03/08/20 22:00 Risperdal PO QHS DIPTI Sodium Chloride 10 ml 03/04/20 22:00 03/07/20 22:19 Sodium Chloride Flush Syringe 10 Ml IV Not Given BID DIPTI Sodium Chloride 10 ml 03/04/20 15:51 Sodium Chloride Flush Syringe 10 Ml IV PRN PRN LINE FLUSH Tamsulosin HCl 0.4 mg 03/08/20 10:00 Flomax PO QDAY DIPTI Nutrition/Malnutrition Assess - Dietary Evaluation Nutrition/Malnutrition Findings: Nutrition Notes Start: 03/05/20 13:40 Freq: Status: Active Protocol: Document 03/07/20 12:12 ARIANNA (Rec: 03/07/20 12:37 ARIANNA [id number]) Co-Sign 03/07/20 12:12 LM Nutrition Notes Initial or Follow up Brief Note Current Diagnosis Acute Kidney Injury,Sepsis, Hypertension Other Pertinent Diagnosis UTI, Metabolic acidosis, hypernatremia, SIRS, Cellulitis Current Diet NPO Subjective/Other Information Per RN, NGT is for water flush . Feeding plan will follow once POC decided. Nutrition Intervention Follow-Up By: 03/11/20 Additional Comments F/U for diet advancement or plan of care.
--- NOTE | 2020-03-08 10:10 | Progress Note ---
Assessment and Plan Cultures: Blood culture 03/04/2020 MRSA 2 out of 4 bottles Urine culture 03/04/2020 10-100,000 CFU normal skin joseph. Blood culture 03/06/2020 no growth today Assessment: 74 years old male with history of hypertension, hypothyroidism, Alzheimer dementia, resident of a intermediate after recent fall with subsequent hip fracture and left arm injury, wearing a sling since 02/14/2020. Admitted on 03/04/2020 due to worsening confusion and right neck swelling for 48 hours: #Severe sepsis: Present on admission with tachycardia, high leukocytosis, acute kidney injury, elevated LFTs, secondary to acute likely suppurative right parotitis +/-UTI +/-bacteremia. #MRSA bacteremia: Likely true bacteremia secondary to suppurative parotitis. Transthoracic echo no obvious vegetation. EF 60-65. Repeat blood culture 03/06/2020 no growth. Easily cleared after IV vancomycin therefore I suspect this is not septic thrombophlebitis. #Acute right likely suppurative parotitis: Clinically improving. Swelling remarkably better. Patient at high risk given age, dehydration and use of anticholinergic agents. CT of the neck with prominent enlargement of the right parotid gland, associated with surrounding cellulitic changes in the parotid region and extending downward along the right lateral aspect of the neck. There is no evidence of fluid collection or abscess. MRI of the neck consistent with right parotitis, no abscess formation. #Acute right IJ thrombus: Now with positive blood cultures it may represent septic thrombophlebitis in the setting of bacteremia. Usually related to an IV catheter, unclear etiology, possible compression from sling. It is not a common presentation of acute parotitis. #Acute UTI: Urine cultures growing normal skin joseph. #Transaminitis: Likely secondary to sepsis. Improving. #Reactive thrombocytosis: Secondary to sepsis. Resolved. #Acute encephalopathy: Likely secondary to sepsis. Improving #Acute kidney injury: Secondary to sepsis, already improving #Recent left hip replacement: Surgical scar clean. #Hypernatremia: improving. Recommendations: -Right parotitis is clinically improving -this is the typical picture of MRSA suppurative parotitis with bacteremia. -Follow-up repeat blood cultures -Continue vancomycin with PK consult -renally adjusted -Unasyn was stopped -Warm compresses to the right parotid -discussed with nurse -Anticoagulation per primary team -Vascular on board -Monitor mentation -Anticipate to discharge on vancomycin 1 g IV once a day total 4 weeks until 04/03/2020. Keep vancomycin trough 10-20 mcg/mL. Order sent to rehabilitation caseworker. -Place PICC line. I am rounding this weekend, Dr. Benoit rounding on Wednesday. Will follow. Sofia Peterson MD Infectious Diseases [employer] [facility] ([facility]) M [phone] O [phone] Subjective Date of service: 03/08/20 Principal diagnosis: Sepsis Interval history: Patient is more alert, talking, some confusion, no fever Objective - Exam Narrative Exam: General appearance: Alert no acute distress Eyes: anicteric sclerae, moist conjunctivae; no lid-lag; PERRLA HENT: Atraumatic; oropharynx dry mucosa Neck: Remarkable improvement of left-sided hard indurated edema of the left cheek, neck and submandibular area, tenderness resolved. Lungs: CTA, with normal respiratory effort and no intercostal retractions CV: Regular rate and rhythm Abdomen: Soft, non-tender; no masses or hepatosplenomegaly Extremities: no edema, no cyanosis Skin: No rash. Psych: Nonagitated Neuro: Alert talking some confusion - Constitutional Vitals: Vital Signs Temp Pulse Resp BP Pulse Ox 98.0 F 45 L 20 162/55 91 03/08/20 06:15 03/08/20 06:15 03/08/20 06:15 03/08/20 06:15 03/08/20 06:15 Temperature -Last 24 Hours Temperature 98.0 F Temperature 99.0 F Temperature 97.7 F Temperature 97.3 F - Labs CBC & Chem 7: 03/08/20 00:47 03/08/20 00:47 Labs: Abnormal lab results 03/04/20 03/07/20 03/08/20 Range/Units 13:38 13:51 00:47 WBC 31.9 H 18.6 H (4.5-11.0) K/mm3 RBC 3.59 L 3.47 L (3.65-5.03) M/mm3 Hgb 10.7 L 10.3 L (11.8-15.2) gm/dl Hct 32.5 L 32.1 L (35.5-45.6) % RDW 16.0 H 15.8 H (13.2-15.2) % Plt Count 724 H (140-440) K/mm3 Lymph % (Auto) 10.2 L (13.4-35.0) % Divide # (Auto) 0.9 H (0.0-0.8) K/mm3 Seg Neutrophils % 83.7 H (40.0-70.0) % Seg Neuts % (Manual) 91.0 H (40.0-70.0) % Lymphocytes % (Manual) 3.0 L (13.4-35.0) % Nucleated RBC % 1.0 H (0.0-0.9) % Seg Neutrophils # 15.6 H (1.8-7.7) K/mm3 Seg Neutrophils # Man 29.0 H (1.8-7.7) K/mm3 Lymphocytes # (Manual) 1.0 L (1.2-5.4) K/mm3 Monocytes # (Manual) 1.3 H (0.0-0.8) K/mm3 Sodium 162 H* (137-145) mmol/L Chloride 124.8 H (98-107) mmol/L BUN 49 H (9-20) mg/dL Glucose 116 H (75-100) mg/dL Calcium (8.4-10.2) mg/dL Alkaline Phosphatase (35-129) units/L Albumin (3.9-5) g/dL 03/08/20 Range/Units 00:47 WBC (4.5-11.0) K/mm3 RBC (3.65-5.03) M/mm3 Hgb (11.8-15.2) gm/dl Hct (35.5-45.6) % RDW (13.2-15.2) % Plt Count (140-440) K/mm3 Lymph % (Auto) (13.4-35.0) % Divide # (Auto) (0.0-0.8) K/mm3 Seg Neutrophils % (40.0-70.0) % Seg Neuts % (Manual) (40.0-70.0) % Lymphocytes % (Manual) (13.4-35.0) % Nucleated RBC % (0.0-0.9) % Seg Neutrophils # (1.8-7.7) K/mm3 Seg Neutrophils # Man (1.8-7.7) K/mm3 Lymphocytes # (Manual) (1.2-5.4) K/mm3 Monocytes # (Manual) (0.0-0.8) K/mm3 Sodium 158 H (137-145) mmol/L Chloride 118.9 H (98-107) mmol/L BUN 38 H (9-20) mg/dL Glucose 118 H (75-100) mg/dL Calcium 8.3 L (8.4-10.2) mg/dL Alkaline Phosphatase 154 H (35-129) units/L Albumin 2.9 L (3.9-5) g/dL
[2020-03-08] MEDS: amLODIPine 10 MG TAB PO SCH (12:39)
[2020-03-08] MEDS: TAMSULOSIN 0.4 MG CAP PO SCH (12:39)
[2020-03-08] MEDS: VANCOMYCIN/NS 1 GM/250 ML 1 GM/250 ML BAG IV SCH (12:39)
[2020-03-08] MEDS: DEXTROSE 5% IN WATER 1,000 ML IV SCH (13:05)
[2020-03-08] MEDS: HYDROmorphone 1 MG/1 ML INJ IV PRN ×2 (13:08→23:35)
[2020-03-08 18:26] LABS: BUN/Creatinine Ratio 29; Blood Urea Nitrogen 29 mg/dL (9-20); Calcium 8.1 mg/dL (8.4-10.2); Hemolysis Index 25
[2020-03-08] MEDS: risperiDONE 0.25 MG TAB PO SCH (21:04)
[2020-03-09 01:09] LABS: Basophils % (Auto) 0.2 % (0.0-1.8); Eosinophils # (Auto) 0.3 K/mm3 (0.0-0.4); Eosinophils % (Auto) 1.4 % (0.0-4.3); Hematocrit 28.8 % (35.5-45.6); Hemoglobin 9.4 gm/dl (11.8-15.2); Lymphocytes # (Auto) 1.6 K/mm3 (1.2-5.4); Lymphocytes % (Auto) 8.7 % (13.4-35.0); Mean Corpuscular HGB Conc 33 % (32-34); Mean Corpuscular Volume 92 fl (84-94); Monocytes # (Auto) 0.5 K/mm3 (0.0-0.8); Monocytes % (Auto) 2.7 % (0.0-7.3); Platelet Count 342 K/mm3 (140-440); Red Blood Count 3.13 M/mm3 (3.65-5.03); Red Cell Distribution Width 15.7 % (13.2-15.2)
[2020-03-09 01:31] LABS: Alanine Aminotransferase 14 units/L (7-56); Albumin 2.5 g/dL (3.9-5); BUN/Creatinine Ratio 27; Blood Urea Nitrogen 27 mg/dL (9-20); Calcium 8.1 mg/dL (8.4-10.2); Hemolysis Index 9
[2020-03-09] MEDS ORDERED: DEXTROSE 5% IN WATER 1,000 ML IV SCH (08:00)
--- NOTE | 2020-03-09 09:33 | Progress Note ---
Assessment and Plan Assessment and plan: HPI on admission 74 YO Male Long Term Facility Resident at [facility] with HTN, Hypothyroidism, Alzheimers Dementia with A FAST Score of 7E and PPS of 30% who is currently bedbound and requires 6/6 assistance with activities of daily living, Debility presents to ED for evaluation. Patient is nonverbal, lethargic and is unable to provide history at the time of my evaluation. Patient is at bedside during exam and interview and provides history. As per the patient has experienced a rapid decline in his state of health after suffering a fall complicated by hip fracture on February 13. Patient reports increased confusion as well as right neck swelling over the past 2 days with progressively worsening symptoms over the same timeframe. EMS was notified and upon arrival the patient was found to be in distress and subsequently transported to [facility] for further care and evaluation of the aforementioned symptoms. Patient seen and evaluated in the emergency department. Lab and imaging studies reviewed. 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 Patient admitted to ICU due to increased risk of multisystem decompensation. Vascular surgery service consulted in the emergency department and the patient is initiated on a heparin drip. Patient found to have poor prognosis. Advanced care planning conducted in ED. Patient prognosis discussed with . Patient acknowledges understanding and agreement with care plan. Patient is confused and lethargic at the time of my evaluation but the patient has a positive gag reflex and is able to protect his airway without difficulty. 03/05. Spouse at bedside. He responds when called. ID consulted for sepsis 2/2 cellulitis vs parotitis. He is on anticoagulation. Maintained on antibiotics. He still has tom on left hip and will need to have this removed. Had hip replacement 02/14. Will get ortho for this. Discussed with spouse at bedside. 03/06. Sodium 164. Fluids switched to D5 water. Still maintain on IV an tibiotics. ID, nephrology and surgery following. Awaiting Ortho evaluation for staple removal. MRI of the neck ordered to rule out any underlying abscess. May need ENT evaluation 03/07. MRI shows parotitis with no abscess or fluid collection. Sodium increased to 171 yesterday so he had to be started on free water via NG tube. Currently on D5 water as well. Sodium this morning is 164. D5 water rate reduced to 100 cc/h. Nephrology is following. Orthopedic surgery also following for left hip replacement management. 03/08. Slightly more alert today. Sodium 158 this AM. Will monitor for now and stop NGT free water if it continues to improve. BC grew MRSA - he is on antibiotics and ID is following. Resumed BP medications. Cr back to baseline. 03/09. Sodium continues to improve. Speech and swallow evaluation ordered. Maintain NG tube for now. Repeat blood culture negative so far. Continue vancomycin as per ID. (1) MRSA bacteremia Current Visit: Yes Status: Acute Qualifiers: Severe sepsis acute organ dysfunction type: acute renal failure Plan to address problem: From neck infection Continue vancomycin. Needs 4 weeks of vancomycin therapy. PICC line ordered ID recommendations appreciated. (2) Toxic metabolic encephalopathy Current Visit: Yes Status: Acute Plan to address problem: Continue IV antibiotics Monitoring (3) Acute kidney injury with acute tubular necrosis Current Visit: Yes Status: Acute Plan to address problem: Resolved (4) Urinary tract infection Current Visit: Yes Status: Acute Qualifiers: Encounter type: initial encounter Plan to address problem: On antibiotics. (5) Lemierre syndrome Current Visit: Yes Status: Acute Plan to address problem: Vascular surgery on board MRI of the neck shows no abscess or fluid collection. Continue anticoagulation. Switch to Eliquis (6) Cellulitis, neck Current Visit: Yes Status: Acute Plan to address problem: Continue antibiotics (7) Hypernatremia Current Visit: Yes Status: Acute Plan to address problem: Improving Maintain D5 water. BMP every 11/19 Continue free water via NG tube for now Speech and swallow evaluation Nephrology recommendations appreciated (8) Metabolic acidosis Current Visit: Yes Status: Acute Plan to address problem: Resolved (9) DVT prophylaxis Current Visit: Yes Status: Acute Plan to address problem: SCD to bilateral lower extremities while in bed, continue therapeutic anticoagulation (10) Advance care planning Current Visit: Yes Status: Acute Plan to address problem: Disease education conducted, prognosis discussed. Patient is full code. Patient has very poor prognosis. Patient's acknowledges understanding and agreement with care plan, +30 minutes. History Interval history: Patient seen and examined at bedside this morning. more alert today. Sodium improving Hospitalist Physical - Constitutional Vitals: Temp Pulse Resp BP Pulse Ox 98.4 F 78 20 122/85 92 03/09/20 05:47 03/08/20 22:09 03/09/20 05:47 03/09/20 05:47 03/09/20 05:47 General appearance: Present: no acute distress - EENT Eyes: Present: PERRL - Respiratory Respiratory: bilateral: CTA - Cardiovascular Heart Sounds: Present: S1 & S2 - Abdominal General gastrointestinal: soft, non-tender, non-distended, normal bowel sounds - Neurologic Neurologic: CNII-XII intact Results - Labs CBC & Chem 7: 03/09/20 00:43 03/09/20 00:43 Labs: Laboratory Last Values WBC 18.6 K/mm3 (4.5-11.0) H 03/09/20 00:43 RBC 3.13 M/mm3 (3.65-5.03) L 03/09/20 00:43 Hgb 9.4 gm/dl (11.8-15.2) L 03/09/20 00:43 Hct 28.8 % (35.5-45.6) L 03/09/20 00:43 MCV 92 fl (84-94) 03/09/20 00:43 MCH 30 pg (28-32) 03/09/20 00:43 MCHC 33 % (32-34) 03/09/20 00:43 RDW 15.7 % (13.2-15.2) H 03/09/20 00:43 Plt Count 342 K/mm3 (140-440) 03/09/20 00:43 Lymph % (Auto) 8.7 % (13.4-35.0) L 03/09/20 00:43 Sabine % (Auto) 2.7 % (0.0-7.3) 03/09/20 00:43 Eos % (Auto) 1.4 % (0.0-4.3) 03/09/20 00:43 Baso % (Auto) 0.2 % (0.0-1.8) 03/09/20 00:43 Lymph # (Auto) 1.6 K/mm3 (1.2-5.4) 03/09/20 00:43 Sabine # (Auto) 0.5 K/mm3 (0.0-0.8) 03/09/20 00:43 Eos # (Auto) 0.3 K/mm3 (0.0-0.4) 03/09/20 00:43 Baso # (Auto) 0.0 K/mm3 (0.0-0.1) 03/09/20 00:43 Add Manual Diff Complete 03/04/20 13:38 Total Counted 100 03/04/20 13:38 Seg Neutrophils % 87.0 % (40.0-70.0) H 03/09/20 00:43 Seg Neuts % (Manual) 91.0 % (40.0-70.0) H 03/04/20 13:38 Band Neutrophils % 2.0 % 03/04/20 13:38 Lymphocytes % (Manual) 3.0 % (13.4-35.0) L 03/04/20 13:38 Reactive Lymphs % (Man) 0 % 03/04/20 13:38 Monocytes % (Manual) 4.0 % (0.0-7.3) 03/04/20 13:38 Eosinophils % (Manual) 0 % (0.0-4.3) 03/04/20 13:38 Basophils % (Manual) 0 % (0.0-1.8) 03/04/20 13:38 Metamyelocytes % 0 % 03/04/20 13:38 Myelocytes % 0 % 03/04/20 13:38 Promyelocytes % 0 % 03/04/20 13:38 Blast Cells % 0 % 03/04/20 13:38 Nucleated RBC % 1.0 % (0.0-0.9) H 03/04/20 13:38 Seg Neutrophils # 16.2 K/mm3 (1.8-7.7) H 03/09/20 00:43 Seg Neutrophils # Man 29.0 K/mm3 (1.8-7.7) H 03/04/20 13:38 Band Neutrophils # 0.6 K/mm3 03/04/20 13:38 Lymphocytes # (Manual) 1.0 K/mm3 (1.2-5.4) L 03/04/20 13:38 Abs React Lymphs (Man) 0.0 K/mm3 03/04/20 13:38 Hypersegmented Neuts Not Reportable 03/04/20 13:38 Hyposegmented Neuts Not Reportable 03/04/20 13:38 Monocytes # (Manual) 1.3 K/mm3 (0.0-0.8) H 03/04/20 13:38 Hypogranular Neuts Not Reportable 03/04/20 13:38 Eosinophils # (Manual) 0.0 K/mm3 (0.0-0.4) 03/04/20 13:38 Basophils # (Manual) 0.0 K/mm3 (0.0-0.1) 03/04/20 13:38 Metamyelocytes # 0.0 K/mm3 03/04/20 13:38 Myelocytes # 0.0 K/mm3 03/04/20 13:38 Promyelocytes # 0.0 K/mm3 03/04/20 13:38 Blast Cells # 0.0 K/mm3 03/04/20 13:38 Smudge Cells Not Reportable 03/04/20 13:38 WBC Morphology Not Reportable 03/04/20 13:38 Toxic Granulation Not Reportable 03/04/20 13:38 Toxic Vacuolation Not Reportable 03/04/20 13:38 Dohle Bodies Not Reportable 03/04/20 13:38 Pelger-Huet Anomaly Not Reportable 03/04/20 13:38 Armand Rods Not Reportable 03/04/20 13:38 Clumped Platelets Not Reportable 03/04/20 13:38 Plt Clumps, EDTA Not Reportable 03/04/20 13:38 Large Platelets Not Reportable 03/04/20 13:38 Giant Platelets Not Reportable 03/04/20 13:38 Platelet Satelliting Not Reportable 03/04/20 13:38 Plt Morphology Comment Not Reportable 03/04/20 13:38 RBC Morphology Not Reportable 03/04/20 13:38 Dimorphic RBCs Not Reportable 03/04/20 13:38 Polychromasia Not Reportable 03/04/20 13:38 Hypochromasia Not Reportable 03/04/20 13:38 Poikilocytosis Not Reportable 03/04/20 13:38 Microcytosis Not Reportable 03/04/20 13:38 Spherocytes Not Reportable 03/04/20 13:38 Pappenheimer Bodies Not Reportable 03/04/20 13:38 Sickle Cells Not Reportable 03/04/20 13:38 Target Cells Not Reportable 03/04/20 13:38 Tear Drop Cells Not Reportable 03/04/20 13:38 Ovalocytes Not Reportable 03/04/20 13:38 Helmet Cells Not Reportable 03/04/20 13:38 Russell-[place] Bodies Not Reportable 03/04/20 13:38 Lincoln Rings Not Reportable 03/04/20 13:38 [place] Cells Not Reportable 03/04/20 13:38 Bite Cells Not Reportable 03/04/20 13:38 Crenated Cell Not Reportable 03/04/20 13:38 Elliptocytes Not Reportable 03/04/20 13:38 Acanthocytes (Spur) Not Reportable 03/04/20 13:38 Platelet Estimate Consistent w auto 03/04/20 13:38 Rouleaux Not Reportable 03/04/20 13:38 Hemoglobin C Crystals Not Reportable 03/04/20 13:38 Schistocytes Not Reportable 03/04/20 13:38 Malaria parasites Not Reportable 03/04/20 13:38 Anisocytosis Few 03/04/20 13:38 Macrocytosis Few 03/04/20 13:38 Torsten Bodies Not Reportable 03/04/20 13:38 Hem Pathologist Commnt No 03/04/20 13:38 PT 15.6 Sec. (12.2-14.9) H 03/04/20 13:38 INR 1.21 (0.87-1.13) H 03/04/20 13:38 APTT 33.0 Sec. (24.2-36.6) 03/04/20 13:38 Heparin Anti-Xa Level 0.58 U.I./ml (0.3-0.7) 03/08/20 17:41 Sodium 151 mmol/L (137-145) H 03/09/20 00:43 Potassium 3.8 mmol/L (3.6-5.0) 03/09/20 00:43 Chloride 113.4 mmol/L (98-107) H 03/09/20 00:43 Carbon Dioxide 25 mmol/L (22-30) 03/09/20 00:43 Anion Gap 16 mmol/L 03/09/20 00:43 BUN 27 mg/dL (9-20) H 03/09/20 00:43 Creatinine 1.0 mg/dL (0.8-1.3) 03/09/20 00:43 Estimated GFR > 60 ml/min 03/09/20 00:43 BUN/Creatinine Ratio 27 % 03/09/20 00:43 Glucose 129 mg/dL (75-100) H 03/09/20 00:43 Lactic Acid 1.40 mmol/L (0.7-2.0) 03/05/20 05:16 Osmolality 359 Mosm/kg 03/07/20 00:22 Magnesium 3.40 mg/dL (1.7-2.3) H 03/04/20 13:38 Calcium 8.1 mg/dL (8.4-10.2) L 03/09/20 00:43 Total Bilirubin 0.50 mg/dL (0.1-1.2) 03/09/20 00:43 Total Creatine Kinase 82 units/L (55-170) 03/04/20 13:38 AST 24 units/L (5-40) 03/09/20 00:43 ALT 14 units/L (7-56) 03/09/20 00:43 Alkaline Phosphatase 130 units/L (35-129) H 03/09/20 00:43 Total Protein 6.5 g/dL (6.3-8.2) 03/09/20 00:43 Albumin 2.5 g/dL (3.9-5) L 03/09/20 00:43 Albumin/Globulin Ratio 0.6 % 03/09/20 00:43 TSH 8.020 mlU/mL (0.270-4.200) H 03/09/20 00:43 Urine Color Ewa (Yellow) 03/04/20 13:55 Urine Turbidity Turbid (Clear) 03/04/20 13:55 Urine pH 5.0 (5.0-7.0) 03/04/20 13:55 Ur Specific Mclean 1.017 (1.003-1.030) 03/04/20 13:55 Urine Protein 30 mg/dl mg/dL (Negative) 03/04/20 13:55 Urine Glucose (UA) Neg mg/dL (Negative) 03/04/20 13:55 Urine Ketones Neg mg/dL (Negative) 03/04/20 13:55 Urine Blood Sm (Negative) 03/04/20 13:55 Urine Nitrite Neg (Negative) 03/04/20 13:55 Urine Bilirubin Neg (Negative) 03/04/20 13:55 Urine Urobilinogen < 2.0 mg/dL (<2.0) 03/04/20 13:55 Ur Leukocyte Esterase Lg (Negative) 03/04/20 13:55 Urine WBC (Auto) > 182.0 /HPF (0.0-6.0) H 03/04/20 13:55 Urine RBC (Auto) 31.0 /HPF (0.0-6.0) 03/04/20 13:55 U Epithel Cells (Auto) 1.0 /HPF (0-13.0) 03/04/20 13:55 Urine Bacteria (Auto) 4+ /HPF (Negative) 03/04/20 13:55 Ur Transition Epith Cell 5 /HPF 03/04/20 13:55 Urine Mucus Few /HPF 03/04/20 13:55 Urine Osmolality 501 Mosm/kg 03/06/20 19:11 Vancomycin Trough 12.8 ug/mL (5.0-20.0) 03/08/20 08:24 Random Vancomycin 7.8 ug/mL (0-40.0) 03/06/20 07:01 Salicylates < 0.3 mg/dL (2.8-20.0) L 03/04/20 13:38 Acetaminophen 5.0 ug/mL (10.0-30.0) L 03/04/20 13:38 Blood Type A POSITIVE 03/04/20 16:15 Antibody Screen Negative 03/04/20 16:15 Microbiology: Microbiology 03/06/20 18:12 Peripheral/Venous Blood Culture - Preliminary NO GROWTH AFTER 48 HOURS 03/06/20 14:18 Peripheral/Venous Blood Culture - Preliminary NO GROWTH AFTER 48 HOURS - Diagnostic Impressions Diagnostic Impressions: Echocardiogram 03/06/20 11:55 Transthoracic Echocardiogram Indication: Bacteremia Eval for Vegetation BP: 173/83 HR: 357 Conclusions *The study quality is technically difficult. Poor accoustic windows. *Global left ventricular systolic function is normal. *The estimated ejection fraction is 60-65%. *There is trace of mitral regurgitation. *There is trace tricuspid regurgitation. Findings Procedure Info: The study quality is technically difficult. Patient unresponsive and combative during echo. The study is technically limited due to poor acoustic windows. The study is technically limited due to patient body habitus. The study was technically limited due to the patient's inability to lay in the left lateral decubitus position. Left Ventricle: The left ventricular chamber size is normal. There is no left ventricular hypertrophy. Global left ventricular systolic function is normal. The estimated ejection fraction is 60-65%. Left Atrium: The left atrial chamber size is normal. Right Ventricle: The right ventricular cavity size is normal. Right Atrium: The right atrial cavity size is normal. Aortic Valve: The aortic valve is trileaflet. The aortic valve leaflets are mildly thickened. There is no evidence of aortic regurgitation. There is no evidence of aortic stenosis. Mitral Valve: The mitral valve leaflets are mildly thickened. There is trace of mitral regurgitation. There is no evidence of mitral stenosis. Tricuspid Valve: There is trace tricuspid regurgitation. No pulmonary hypertension is noted. Pulmonic Valve: There is trace pulmonic regurgitation. Pericardium: There is no pericardial effusion. Aorta: There is no dilatation of the aortic root. Venous: The inferior vena cava appears normal in size. Measurements Chambers 2D Name Value Normal Range IVSd (2D) 0.56 cm (0.6 - 1.1) LVPWd (2D) 0.46 cm (0.6 - 1.1) LVIDd (2D) 4.68 cm (3.7 - 5.6) LVIDs (2D) 2.88 cm (2 - 3.8) LV FS (2D) 38.34 % - EF Teichholz (2D) 68.61 % - Ao root diameter (2D) 2.09 cm (2 - 3.7) Diastolic/Systolic Function Name Value Normal Range MV E-wave Vmax 0.6 m/sec - MV deceleration time 165.66 msec - MV A-wave Vmax 0.82 m/sec - MV E:A ratio 0.74 ratio - Aortic Valve Name Value Normal Range LVOT diameter 2.06 cm - Mitral Valve Name Value Normal Range MV PHT 65.46 msec - MVA (PHT) 3.36 cm2 - Tricuspid Valve Name Value Normal Range IVC diameter 1.1 cm (1.2 - 2.3) Pulmonic Valve/Qp:Qs Name Value Normal Range PV Vmax 1.46 m/sec - PV VTI 23.85 cm - PV peak gradient 8.5 mmHg - PV mean gradient 3.7 mmHg - MT end-diastolic Vmax 1.01 m/sec - RVOT Vmax 1.42 m/sec - RVOT VTI 23.28 cm - RVOT peak gradient 8.04 mmHg - Anguiano/IV: Voiding Method Indwelling Catheter IV Catheter Type [Right INT / Saline Lock Antecubital] IV Catheter Type [Right Upper Peripheral IV arm] IV Catheter Type [Right Hand] Peripheral IV IV Catheter Type [Right INT / Saline Lock Forearm] Active Medications - Current Medications Current Medications: Generic Name Dose Route Start Last Admin Trade Name Freq PRN Reason Stop Dose Admin Amlodipine Besylate 10 mg 03/08/20 10:00 03/08/20 12:39 Amlodipine PO 10 mg QDAY DIPTI Administration Hydromorphone HCl 0.25 mg 03/04/20 15:51 03/08/20 23:35 Dilaudid IV 0.25 mg Q4H PRN Administration Pain, Moderate (4-6) Heparin Sodium/Sodium Chloride 25,000 unit in 500 mls @ 18 mls/hr 03/04/20 16:00 03/08/20 21:51 Heparin/ 0.45% Nacl-25,000 Unit/500 Ml IV 1,350 units/hr TITRATE DIPTI 27 mls/hr Administration Protocol 900 UNITS/HR Vancomycin HCl 1,250 mg/ 275 mls @ 166.667 mls/hr 03/09/20 10:00 Sodium Chloride IV 04/03/20 11:38 Q24HR DIPTI Dextrose 1,000 mls @ 75 mls/hr 03/09/20 08:00 D5w IV DIRECT DIPTI Labetalol HCl 20 mg 03/05/20 03:05 03/07/20 06:33 Labetalol IV 20 mg Q6H PRN Administration Blood Pressure Risperidone 0.25 mg 03/08/20 22:00 03/08/20 21:04 Risperdal PO 0.25 mg QHS DIPTI Administration Sodium Chloride 10 ml 03/04/20 22:00 03/08/20 21:29 Sodium Chloride Flush Syringe 10 Ml IV Not Given BID DIPTI Sodium Chloride 10 ml 03/04/20 15:51 Sodium Chloride Flush Syringe 10 Ml IV PRN PRN LINE FLUSH Tamsulosin HCl 0.4 mg 03/08/20 10:00 03/08/20 12:39 Flomax PO 0.4 mg QDAY DIPTI Administration Nutrition/Malnutrition Assess - Dietary Evaluation Nutrition/Malnutrition Findings: Nutrition Notes Start: 03/05/20 13:40 Freq: Status: Active Protocol: Document 03/07/20 12:12 ARIANNA (Rec: 03/07/20 12:37 ARIANNA [id number]) Co-Sign 03/07/20 12:12 LM Nutrition Notes Initial or Follow up Brief Note Current Diagnosis Acute Kidney Injury,Sepsis, Hypertension Other Pertinent Diagnosis UTI, Metabolic acidosis, hypernatremia, SIRS, Cellulitis Current Diet NPO Subjective/Other Information Per RN, NGT is for water flush . Feeding plan will follow once POC decided. Nutrition Intervention Follow-Up By: 03/11/20 Additional Comments F/U for diet advancement or plan of care.
[2020-03-09] MEDS: TAMSULOSIN 0.4 MG CAP PO SCH (09:45)
[2020-03-09] MEDS: VANCOMYCIN 1,250 MG in SODIUM CHLORIDE 0.9% 250ML 250 ML IV SCH (09:45)
[2020-03-09] MEDS: amLODIPine 10 MG TAB PO SCH (09:45)
[2020-03-09] MEDS: APIXABAN 5 MG TAB PO SCH ×2 (10:48→21:52)
--- NOTE | 2020-03-09 16:13 | Progress Note ---
Assessment and Plan # Acute Kidney Injury, Azotemia: suspect pre-renal etiology given history of limited oral intake, overall poor conditioning. Creatinine improved from 5.4->3.9->2.0->1.4->1.1->1.0 with IVF, now off. Renal ultrasound without acute obstruction. Good urine output noted - on D5w as below - strict Is/Os - avoid nephrotoxins - urinalysis reviewed, defer serologic workup - BP previously reasonable, now on higher side - no indication for renal replacement therapy currently # Hypernatremia, Hyperchloremia: free water deficit noted, sodium has worsened from 154->160->164->158->151 previously on D5 1/2NS, agree with ongoing use D5W, can provide free water with tube feeds, oral hydration once able # Sepsis: IVF, management per primary, appreciate ID, vasc, pulm. 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 Patient now DNR Subjective Date of service: 03/09/20 Principal diagnosis: Sepsis Interval history: No acute changes noted, appears in same mental status, drowsy. Objective - Exam Narrative Exam: Constitutional: confused, ill appearing Head: NC/AT Neck: supple Lungs: clear to auscultation CV: RRR, no M/R/G Abdomen: soft, non-tender, bowel sounds present Back: nontender Extremities: no edema, pulses WNL Skin: intact Neuro: lethargic, sleepy - Vital Signs Vital signs: Vital Signs - 12hr 03/09/20 03/09/20 05:47 12:00 Temperature 98.4 F 98.0 F Pulse Rate 76 Respiratory 20 22 Rate Blood Pressure 122/85 Blood Pressure 120/72 [Right] O2 Sat by Pulse 92 Oximetry - Lab 03/09/20 00:43 03/09/20 00:43 Most recent lab results Magnesium 3.40 mg/dL (1.7-2.3) H 03/04/20 13:38 Calcium 8.1 mg/dL (8.4-10.2) L 03/09/20 00:43 Medications & Allergies - Medications Allergies/Adverse Reactions: Allergies duloxetine [From Cymbalta] Allergy (Verified 03/04/20 12:47) Unknown lamotrigine [From Lamictal] Allergy (Verified 03/04/20 12:47) Unknown milk Allergy (Verified 03/04/20 12:47) Unknown ofloxacin Allergy (Verified 03/04/20 12:47) Unknown pregabalin [From Lyrica] Allergy (Verified 03/04/20 12:47) Unknown Home Medications: Home Medications Medication Instructions Recorded Confirmed Last Taken Type Acetaminophen [Tylenol] 650 mg PO Q6H PRN 03/04/20 03/04/20 Unknown History Aspirin [Adult Aspirin] 81 mg PO DAILY 03/04/20 03/04/20 Unknown History Cholecalciferol (Vitamin D3) 2,000 unit PO QDAY 03/04/20 03/04/20 Unknown History [Vitamin D3 2,000 UNIT CAP] Enoxaparin [Lovenox] 40 mg SQ QDAY 03/04/20 03/04/20 Unknown History HYDROcodone/APAP 5-325 [[place] 1 each PO Q8HR PRN 03/04/20 03/04/20 Unknown History 5/325] LORazepam [Lorazepam] 0.5 mg PO DAILY 03/04/20 03/04/20 Unknown History Lactobacillus Rhamnosus GG 1 each PO QDAY 03/04/20 03/04/20 Unknown History [Culturelle] Levothyroxine [Synthroid] 75 mcg PO QAM 03/04/20 03/04/20 Unknown History Melatonin 1 mg PO QHS 03/04/20 03/04/20 Unknown History Polyethylene Glycol 3350 17 gm PO DAILY PRN 03/04/20 03/04/20 Unknown History [Powderlax] Sertraline [Zoloft] 100 mg PO QDAY 03/04/20 03/04/20 Unknown History Tamsulosin [Flomax] 0.4 mg PO QDAY 03/04/20 03/04/20 Unknown History lisinopriL [Zestril] 20 mg PO QDAY 03/04/20 03/04/20 Unknown History risperiDONE [RisperDAL] 0.25 mg PO QHS 03/04/20 03/04/20 Unknown History Active Medications: Generic Name Dose Route Start Last Admin Trade Name Freq PRN Reason Stop Dose Admin Amlodipine Besylate 10 mg 03/08/20 10:00 03/09/20 09:45 Amlodipine PO 10 mg QDAY DIPTI Administration Apixaban 5 mg 03/09/20 10:00 03/09/20 10:48 Eliquis PO 5 mg Q12HR DIPTI Administration Protocol Hydromorphone HCl 0.25 mg 03/04/20 15:51 03/08/20 23:35 Dilaudid IV 0.25 mg Q4H PRN Administration Pain, Moderate (4-6) Vancomycin HCl 1,250 mg/ 275 mls @ 166.667 mls/hr 03/09/20 10:00 03/09/20 09:45 Sodium Chloride IV 04/03/20 11:38 166.667 mls/hr Q24HR DIPTI Administration Dextrose 1,000 mls @ 75 mls/hr 03/09/20 08:00 03/09/20 09:47 D5w IV 75 mls/hr DIRECT DIPTI Administration Labetalol HCl 20 mg 03/05/20 03:05 03/07/20 06:33 Labetalol IV 20 mg Q6H PRN Administration Blood Pressure Risperidone 0.25 mg 03/08/20 22:00 03/08/20 21:04 Risperdal PO 0.25 mg QHS DIPTI Administration Sodium Chloride 10 ml 03/04/20 22:00 03/09/20 09:45 Sodium Chloride Flush Syringe 10 Ml IV 10 ml BID DIPTI Administration Sodium Chloride 10 ml 03/04/20 15:51 Sodium Chloride Flush Syringe 10 Ml IV PRN PRN LINE FLUSH Tamsulosin HCl 0.4 mg 03/08/20 10:00 03/09/20 09:45 Flomax PO 0.4 mg QDAY DIPTI Administration
[2020-03-09] MEDS: risperiDONE 0.25 MG TAB PO SCH (21:52)
[2020-03-10 01:28] LABS: Basophils % (Auto) 0.2 % (0.0-1.8); Eosinophils # (Auto) 0.3 K/mm3 (0.0-0.4); Eosinophils % (Auto) 1.7 % (0.0-4.3); Hematocrit 29.5 % (35.5-45.6); Hemoglobin 9.5 gm/dl (11.8-15.2); Lymphocytes # (Auto) 1.4 K/mm3 (1.2-5.4); Lymphocytes % (Auto) 8.5 % (13.4-35.0); Mean Corpuscular HGB Conc 32 % (32-34); Mean Corpuscular Volume 93 fl (84-94); Monocytes # (Auto) 0.6 K/mm3 (0.0-0.8); Monocytes % (Auto) 3.4 % (0.0-7.3); Platelet Count 300 K/mm3 (140-440); Red Blood Count 3.19 M/mm3 (3.65-5.03); Red Cell Distribution Width 15.4 % (13.2-15.2)
[2020-03-10 02:13] LABS: Alanine Aminotransferase 18 units/L (7-56); Albumin 2.4 g/dL (3.9-5); BUN/Creatinine Ratio 28; Blood Urea Nitrogen 25 mg/dL (9-20); Calcium 7.9 mg/dL (8.4-10.2); Hemolysis Index 12
--- NOTE | 2020-03-10 07:16 | XRay Report ---
ABDOMEN 1 VIEW(S) INDICATION / CLINICAL INFORMATION: VERIFY TUBE PLACEMENT FOR FEEDING. COMPARISON: 03/06/2020 FINDINGS: TUBES / LINES: The tip of the feeding tube projects over the proximal stomach. BOWEL GAS PATTERN/EXTRALUMINAL GAS: No significant abnormality. No pneumatosis or secondary signs of free air. ADDITIONAL FINDINGS: No significant additional findings. IMPRESSION: 1. Feeding tube tip projects over the proximal stomach and could be advanced. Signer Name: Az Hardin MD Signed: 03/10/2020 7:12 AM Workstation Name: [email or web address]
[2020-03-10] MEDS: POTASSIUM CHLORIDE 10 MEQ 10 MEQ/100 ML BAG IV SCH ×4 (08:00→12:48)
--- NOTE | 2020-03-10 09:24 | Progress Note ---
Assessment and Plan Cultures: Blood culture 03/04/2020 MRSA 2 out of 4 bottles Urine culture 03/04/2020 10-100,000 CFU normal skin joseph. Blood culture 03/06/2020 no growth today Assessment: 74 years old male with history of hypertension, hypothyroidism, Alzheimer dementia, resident of a long-term after recent fall with subsequent hip fracture and left arm injury, wearing a sling since 02/14/2020. Admitted on 03/04/2020 due to worsening confusion and right neck swelling for 48 hours: #Severe sepsis: overall better, leukocytosis slowly improving, secondary to acute likely suppurative right parotitis +/-UTI +/-bacteremia. #MRSA bacteremia: Likely true bacteremia secondary to suppurative parotitis. Transthoracic echo no obvious vegetation. EF 60-65. Repeat blood culture 03/06/2020 no growth. Easily cleared after IV vancomycin therefore I suspect this is not septic thrombophlebitis. #Acute right likely suppurative parotitis: Remarkable improvement on vancomycin. Patient is at high risk given age, dehydration and use of anticholinergic agents. CT of the neck with prominent enlargement of the right parotid gland, associated with surrounding cellulitic changes in the parotid region and extending downward along the right lateral aspect of the neck. There is no evidence of fluid collection or abscess. MRI of the neck consistent with right parotitis, no abscess formation. #Acute right IJ thrombus: Now with positive blood cultures it could represent septic thrombophlebitis in the setting of bacteremia, however blood culture will clear rapidly. Usually related to an IV catheter, unclear etiology, possible compression from sling. It is not a commonly associated with acute parotitis. #Acute UTI: Urine cultures growing normal skin joseph. Treated with Unasyn. #Transaminitis: Likely secondary to sepsis. Improving. #Reactive thrombocytosis: Secondary to sepsis. Resolved. #Acute encephalopathy: Likely secondary to sepsis. Improving #Acute kidney injury: Secondary to sepsis, already improving #Recent left hip replacement: Surgical scar clean. #Hypernatremia: improving. Recommendations: -Monitor mentation, although improved, now back to normal, may consider brain MRI -Continue vancomycin with PK consult -renally adjusted -Warm compresses to the right parotid -discussed with nurse -Anticoagulation per primary team -Vascular on board -Monitor mentation -Anticipate to discharge on vancomycin 1 g IV once a day total 4 weeks until 04/03/2020. Keep vancomycin trough 10-20 mcg/mL. Order sent to employment evaluator/case manager. -Place PICC line. Dr. Cy marin on Wednesday. Will follow. Sofia Peterson MD Infectious Diseases [employer] [facility] ([facility]) M [phone] O [phone] Subjective Date of service: 03/10/20 Principal diagnosis: Sepsis Interval history: Patient is more alert and oriented however some confusion remains, no fever. Objective - Exam Narrative Exam: General appearance: Alert no acute distress Eyes: anicteric sclerae, moist conjunctivae; no lid-lag; PERRLA HENT: Atraumatic; oropharynx dry mucosa + NG tube Neck: Remarkable improvement of left-sided hard indurated edema of the left cheek, neck and submandibular area, tenderness resolved. Lungs: CTA, with normal respiratory effort and no intercostal retractions CV: Regular rate and rhythm Abdomen: Soft, non-tender; no masses or hepatosplenomegaly Extremities: no edema, no cyanosis Skin: No rash. Psych: Nonagitated Neuro: Alert talking still some confusion [place] - Constitutional Vitals: Vital Signs Temp Pulse Resp BP Pulse Ox 98.0 F 75 16 156/72 97 03/10/20 04:03 03/10/20 04:03 03/10/20 04:03 03/10/20 04:03 03/09/20 21:24 Temperature -Last 24 Hours Temperature 98.0 F Temperature 98.4 F Temperature 98.0 F Temperature 98.0 F - Labs CBC & Chem 7: 03/10/20 00:13 03/10/20 00:13 Labs: Abnormal lab results 03/09/20 03/09/20 03/10/20 Range/Units 16:28 18:14 00:13 WBC 16.4 H (4.5-11.0) K/mm3 RBC 3.19 L (3.65-5.03) M/mm3 Hgb 9.5 L (11.8-15.2) gm/dl Hct 29.5 L (35.5-45.6) % RDW 15.4 H (13.2-15.2) % Lymph % (Auto) 8.5 L (13.4-35.0) % Seg Neutrophils % 86.2 H (40.0-70.0) % Seg Neutrophils # 14.2 H (1.8-7.7) K/mm3 Heparin Anti-Xa Level 1.13 H (0.3-0.7) U.I./ml Sodium (137-145) mmol/L Potassium (3.6-5.0) mmol/L Chloride (98-107) mmol/L BUN (9-20) mg/dL Glucose (75-100) mg/dL POC Glucose 122 H (70-105) Calcium (8.4-10.2) mg/dL Albumin (3.9-5) g/dL 03/10/20 03/10/20 Range/Units 00:13 07:46 WBC (4.5-11.0) K/mm3 RBC (3.65-5.03) M/mm3 Hgb (11.8-15.2) gm/dl Hct (35.5-45.6) % RDW (13.2-15.2) % Lymph % (Auto) (13.4-35.0) % Seg Neutrophils % (40.0-70.0) % Seg Neutrophils # (1.8-7.7) K/mm3 Heparin Anti-Xa Level (0.3-0.7) U.I./ml Sodium 146 H (137-145) mmol/L Potassium 3.3 L (3.6-5.0) mmol/L Chloride 109.3 H (98-107) mmol/L BUN 25 H (9-20) mg/dL Glucose 106 H (75-100) mg/dL POC Glucose 118 H (70-105) Calcium 7.9 L (8.4-10.2) mg/dL Albumin 2.4 L (3.9-5) g/dL
--- NOTE | 2020-03-10 09:26 | Progress Note ---
Assessment and Plan Assessment and plan: HPI on admission 74 YO Male [facility] Facility Resident at [facility] with HTN, Hypothyroidism, Alzheimers Dementia with A FAST Score of 7E and PPS of 30% who is currently bedbound and requires 6/6 assistance with activities of daily living, Debility presents to ED for evaluation. Patient is nonverbal, lethargic and is unable to provide history at the time of my evaluation. Patient is at bedside during exam and interview and provides history. As per the patient has experienced a rapid decline in his state of health after suffering a fall complicated by hip fracture on February 13. Patient reports increased confusion as well as right neck swelling over the past 2 days with progressively worsening symptoms over the same timeframe. EMS was notified and upon arrival the patient was found to be in distress and subsequently transported to [facility] for further care and evaluation of the aforementioned symptoms. Patient seen and evaluated in the emergency department. Lab and imaging studies reviewed. 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 Patient admitted to ICU due to increased risk of multisystem decompensation. Vascular surgery service consulted in the emergency department and the patient is initiated on a heparin drip. Patient found to have poor prognosis. Advanced care planning conducted in ED. Patient prognosis discussed with . Patient acknowledges understanding and agreement with care plan. Patient is confused and lethargic at the time of my evaluation but the patient has a positive gag reflex and is able to protect his airway without difficulty. 03/05. Spouse at bedside. He responds when called. ID consulted for sepsis 2/2 cellulitis vs parotitis. He is on anticoagulation. Maintained on antibiotics. He still has tom on left hip and will need to have this removed. Had hip replacement 02/14. Will get ortho for this. Discussed with spouse at bedside. 03/06. Sodium 164. Fluids switched to D5 water. Still maintain on IV an tibiotics. ID, nephrology and surgery following. Awaiting Ortho evaluation for staple removal. MRI of the neck ordered to rule out any underlying abscess. May need ENT evaluation 03/07. MRI shows parotitis with no abscess or fluid collection. Sodium increased to 171 yesterday so he had to be started on free water via NG tube. Currently on D5 water as well. Sodium this morning is 164. D5 water rate reduced to 100 cc/h. Nephrology is following. Orthopedic surgery also following for left hip replacement management. 03/08. Slightly more alert today. Sodium 158 this AM. Will monitor for now and stop NGT free water if it continues to improve. BC grew MRSA - he is on antibiotics and ID is following. Resumed BP medications. Cr back to baseline. 03/09. Sodium continues to improve. Speech and swallow evaluation ordered. Maintain NG tube for now. Repeat blood culture negative so far. Continue vancomycin as per ID. 03/10. Discussed at length with patient spouse today. Plan is to have patient get a swallow evaluation. He will need physical therapy as well. Continue to maintain NG tube for now. (1) MRSA bacteremia Current Visit: Yes Status: Acute Qualifiers: Severe sepsis acute organ dysfunction type: acute renal failure Plan to address problem: From neck infection Continue vancomycin. Needs 4 weeks of vancomycin therapy. ID recommendations appreciated. (2) Toxic metabolic encephalopathy Current Visit: Yes Status: Acute Plan to address problem: Slightly improved Continue IV antibiotics Monitoring (3) Acute kidney injury with acute tubular necrosis Current Visit: Yes Status: Acute Plan to address problem: Resolved (4) Urinary tract infection Current Visit: Yes Status: Acute Qualifiers: Encounter type: initial encounter Plan to address problem: On antibiotics. (5) Lemierre syndrome Current Visit: Yes Status: Acute Plan to address problem: Vascular surgery on board MRI of the neck shows no abscess or fluid collection. Eliquis (6) Cellulitis, neck Current Visit: Yes Status: Acute Plan to address problem: Continue antibiotics (7) Hypernatremia Current Visit: Yes Status: Acute Plan to address problem: Improving Maintain on D5 water for now Continue free water via NG tube for now Needs swallow evaluation so he can be started on a diet. Nephrology recommendations appreciated (8) Metabolic acidosis Current Visit: Yes Status: Acute Plan to address problem: Resolved (9) DVT prophylaxis Current Visit: Yes Status: Acute Plan to address problem: SCD to bilateral lower extremities while in bed, continue therapeutic anticoagulation (10) Advance care planning Current Visit: Yes Status: Acute Plan to address problem: Disease education conducted, prognosis discussed. Patient is full code. Patient has very poor prognosis. Patient's acknowledges understanding and agreement with care plan, +30 minutes. History Interval history: Patient seen and examined at bedside this morning. Responds when called but he is sleepy. Labs reviewed. WBC better. Sodium 146. Discussed with spouse Anika at length this morning. He will need swallow evaluation. PT also ordered. Hospitalist Physical - Constitutional Vitals: Temp Pulse Resp BP Pulse Ox 98.0 F 75 16 156/72 97 03/10/20 04:03 03/10/20 04:03 03/10/20 04:03 03/10/20 04:03 03/09/20 21:24 General appearance: Present: no acute distress - EENT Eyes: Present: PERRL - Respiratory Respiratory: bilateral: CTA - Cardiovascular Heart Sounds: Present: S1 & S2 - Extremities Extremities: No edema - Abdominal General gastrointestinal: soft, non-tender, non-distended, normal bowel sounds - Neurologic Neurologic: other (Sleepy) Results - Labs CBC & Chem 7: 03/10/20 00:13 03/10/20 00:13 Labs: Laboratory Last Values WBC 16.4 K/mm3 (4.5-11.0) H 03/10/20 00:13 RBC 3.19 M/mm3 (3.65-5.03) L 03/10/20 00:13 Hgb 9.5 gm/dl (11.8-15.2) L 03/10/20 00:13 Hct 29.5 % (35.5-45.6) L 03/10/20 00:13 MCV 93 fl (84-94) 03/10/20 00:13 MCH 30 pg (28-32) 03/10/20 00:13 MCHC 32 % (32-34) 03/10/20 00:13 RDW 15.4 % (13.2-15.2) H 03/10/20 00:13 Plt Count 300 K/mm3 (140-440) 03/10/20 00:13 Lymph % (Auto) 8.5 % (13.4-35.0) L 03/10/20 00:13 [place] % (Auto) 3.4 % (0.0-7.3) 03/10/20 00:13 Eos % (Auto) 1.7 % (0.0-4.3) 03/10/20 00:13 Baso % (Auto) 0.2 % (0.0-1.8) 03/10/20 00:13 Lymph # (Auto) 1.4 K/mm3 (1.2-5.4) 03/10/20 00:13 [place] # (Auto) 0.6 K/mm3 (0.0-0.8) 03/10/20 00:13 Eos # (Auto) 0.3 K/mm3 (0.0-0.4) 03/10/20 00:13 Baso # (Auto) 0.0 K/mm3 (0.0-0.1) 03/10/20 00:13 Add Manual Diff Complete 03/04/20 13:38 Total Counted 100 03/04/20 13:38 Seg Neutrophils % 86.2 % (40.0-70.0) H 03/10/20 00:13 Seg Neuts % (Manual) 91.0 % (40.0-70.0) H 03/04/20 13:38 Band Neutrophils % 2.0 % 03/04/20 13:38 Lymphocytes % (Manual) 3.0 % (13.4-35.0) L 03/04/20 13:38 Reactive Lymphs % (Man) 0 % 03/04/20 13:38 Monocytes % (Manual) 4.0 % (0.0-7.3) 03/04/20 13:38 Eosinophils % (Manual) 0 % (0.0-4.3) 03/04/20 13:38 Basophils % (Manual) 0 % (0.0-1.8) 03/04/20 13:38 Metamyelocytes % 0 % 03/04/20 13:38 Myelocytes % 0 % 03/04/20 13:38 Promyelocytes % 0 % 03/04/20 13:38 Blast Cells % 0 % 03/04/20 13:38 Nucleated RBC % 1.0 % (0.0-0.9) H 03/04/20 13:38 Seg Neutrophils # 14.2 K/mm3 (1.8-7.7) H 03/10/20 00:13 Seg Neutrophils # Man 29.0 K/mm3 (1.8-7.7) H 03/04/20 13:38 Band Neutrophils # 0.6 K/mm3 03/04/20 13:38 Lymphocytes # (Manual) 1.0 K/mm3 (1.2-5.4) L 03/04/20 13:38 Abs React Lymphs (Man) 0.0 K/mm3 03/04/20 13:38 Hypersegmented Neuts Not Reportable 03/04/20 13:38 Hyposegmented Neuts Not Reportable 03/04/20 13:38 Monocytes # (Manual) 1.3 K/mm3 (0.0-0.8) H 03/04/20 13:38 Hypogranular Neuts Not Reportable 03/04/20 13:38 Eosinophils # (Manual) 0.0 K/mm3 (0.0-0.4) 03/04/20 13:38 Basophils # (Manual) 0.0 K/mm3 (0.0-0.1) 03/04/20 13:38 Metamyelocytes # 0.0 K/mm3 03/04/20 13:38 Myelocytes # 0.0 K/mm3 03/04/20 13:38 Promyelocytes # 0.0 K/mm3 03/04/20 13:38 Blast Cells # 0.0 K/mm3 03/04/20 13:38 Smudge Cells Not Reportable 03/04/20 13:38 WBC Morphology Not Reportable 03/04/20 13:38 Toxic Granulation Not Reportable 03/04/20 13:38 Toxic Vacuolation Not Reportable 03/04/20 13:38 Dohle Bodies Not Reportable 03/04/20 13:38 Pelger-Huet Anomaly Not Reportable 03/04/20 13:38 Armand Rods Not Reportable 03/04/20 13:38 Clumped Platelets Not Reportable 03/04/20 13:38 Plt Clumps, EDTA Not Reportable 03/04/20 13:38 Large Platelets Not Reportable 03/04/20 13:38 Giant Platelets Not Reportable 03/04/20 13:38 Platelet Satelliting Not Reportable 03/04/20 13:38 Plt Morphology Comment Not Reportable 03/04/20 13:38 RBC Morphology Not Reportable 03/04/20 13:38 Dimorphic RBCs Not Reportable 03/04/20 13:38 Polychromasia Not Reportable 03/04/20 13:38 Hypochromasia Not Reportable 03/04/20 13:38 Poikilocytosis Not Reportable 03/04/20 13:38 Microcytosis Not Reportable 03/04/20 13:38 Spherocytes Not Reportable 03/04/20 13:38 Pappenheimer Bodies Not Reportable 03/04/20 13:38 Sickle Cells Not Reportable 03/04/20 13:38 Target Cells Not Reportable 03/04/20 13:38 Tear Drop Cells Not Reportable 03/04/20 13:38 Ovalocytes Not Reportable 03/04/20 13:38 Helmet Cells Not Reportable 03/04/20 13:38 Russell-[place] Bodies Not Reportable 03/04/20 13:38 [place] Rings Not Reportable 03/04/20 13:38 [place] Cells Not Reportable 03/04/20 13:38 Bite Cells Not Reportable 03/04/20 13:38 Crenated Cell Not Reportable 03/04/20 13:38 Elliptocytes Not Reportable 03/04/20 13:38 Acanthocytes (Spur) Not Reportable 03/04/20 13:38 Platelet Estimate Consistent w auto 03/04/20 13:38 Rouleaux Not Reportable 03/04/20 13:38 Hemoglobin C Crystals Not Reportable 03/04/20 13:38 Schistocytes Not Reportable 03/04/20 13:38 Malaria parasites Not Reportable 03/04/20 13:38 Anisocytosis Few 03/04/20 13:38 Macrocytosis Few 03/04/20 13:38 Torsten Bodies Not Reportable 03/04/20 13:38 Hem Pathologist Commnt No 03/04/20 13:38 PT 15.6 Sec. (12.2-14.9) H 03/04/20 13:38 INR 1.21 (0.87-1.13) H 03/04/20 13:38 APTT 33.0 Sec. (24.2-36.6) 03/04/20 13:38 Heparin Anti-Xa Level 1.13 U.I./ml (0.3-0.7) H 03/09/20 18:14 Sodium 146 mmol/L (137-145) H 03/10/20 00:13 Potassium 3.3 mmol/L (3.6-5.0) L 03/10/20 00:13 Chloride 109.3 mmol/L (98-107) H 03/10/20 00:13 Carbon Dioxide 22 mmol/L (22-30) 03/10/20 00:13 Anion Gap 18 mmol/L 03/10/20 00:13 BUN 25 mg/dL (9-20) H 03/10/20 00:13 Creatinine 0.9 mg/dL (0.8-1.3) 03/10/20 00:13 Estimated GFR > 60 ml/min 03/10/20 00:13 BUN/Creatinine Ratio 28 % 03/10/20 00:13 Glucose 106 mg/dL (75-100) H 03/10/20 00:13 POC Glucose 118 (70-105) H 03/10/20 07:46 Lactic Acid 1.40 mmol/L (0.7-2.0) 03/05/20 05:16 Osmolality 359 Mosm/kg 03/07/20 00:22 Magnesium 3.40 mg/dL (1.7-2.3) H 03/04/20 13:38 Calcium 7.9 mg/dL (8.4-10.2) L 03/10/20 00:13 Total Bilirubin 0.50 mg/dL (0.1-1.2) 03/10/20 00:13 Total Creatine Kinase 82 units/L (55-170) 03/04/20 13:38 AST 29 units/L (5-40) 03/10/20 00:13 ALT 18 units/L (7-56) 03/10/20 00:13 Alkaline Phosphatase 124 units/L (35-129) 03/10/20 00:13 Total Protein 6.3 g/dL (6.3-8.2) 03/10/20 00:13 Albumin 2.4 g/dL (3.9-5) L 03/10/20 00:13 Albumin/Globulin Ratio 0.6 % 03/10/20 00:13 TSH 8.020 mlU/mL (0.270-4.200) H 03/09/20 00:43 Urine Color Ewa (Yellow) 03/04/20 13:55 Urine Turbidity Turbid (Clear) 03/04/20 13:55 Urine pH 5.0 (5.0-7.0) 03/04/20 13:55 Ur Specific [place] 1.017 (1.003-1.030) 03/04/20 13:55 Urine Protein 30 mg/dl mg/dL (Negative) 03/04/20 13:55 Urine Glucose (UA) Neg mg/dL (Negative) 03/04/20 13:55 Urine Ketones Neg mg/dL (Negative) 03/04/20 13:55 Urine Blood Sm (Negative) 03/04/20 13:55 Urine Nitrite Neg (Negative) 03/04/20 13:55 Urine Bilirubin Neg (Negative) 03/04/20 13:55 Urine Urobilinogen < 2.0 mg/dL (<2.0) 03/04/20 13:55 Ur Leukocyte Esterase Lg (Negative) 03/04/20 13:55 Urine WBC (Auto) > 182.0 /HPF (0.0-6.0) H 03/04/20 13:55 Urine RBC (Auto) 31.0 /HPF (0.0-6.0) 03/04/20 13:55 U Epithel Cells (Auto) 1.0 /HPF (0-13.0) 03/04/20 13:55 Urine Bacteria (Auto) 4+ /HPF (Negative) 03/04/20 13:55 Ur Transition Epith Cell 5 /HPF 03/04/20 13:55 Urine Mucus Few /HPF 03/04/20 13:55 Urine Osmolality 501 Mosm/kg 03/06/20 19:11 Vancomycin Trough 12.8 ug/mL (5.0-20.0) 03/08/20 08:24 Random Vancomycin 7.8 ug/mL (0-40.0) 03/06/20 07:01 Salicylates < 0.3 mg/dL (2.8-20.0) L 03/04/20 13:38 Acetaminophen 5.0 ug/mL (10.0-30.0) L 03/04/20 13:38 Blood Type A POSITIVE 03/04/20 16:15 Antibody Screen Negative 03/04/20 16:15 Microbiology: Microbiology 03/06/20 18:12 Peripheral/Venous Blood Culture - Preliminary NO GROWTH AFTER 72 HOURS 03/06/20 14:18 Peripheral/Venous Blood Culture - Preliminary NO GROWTH AFTER 72 HOURS - Diagnostic Impressions Diagnostic Impressions: Echocardiogram 03/06/20 11:55 Transthoracic Echocardiogram Indication: Bacteremia Eval for Vegetation BP: 173/83 HR: 357 Conclusions *The study quality is technically difficult. Poor accoustic windows. *Global left ventricular systolic function is normal. *The estimated ejection fraction is 60-65%. *There is trace of mitral regurgitation. *There is trace tricuspid regurgitation. Findings Procedure Info: The study quality is technically difficult. Patient unresponsive and combative during echo. The study is technically limited due to poor acoustic windows. The study is technically limited due to patient body habitus. The study was technically limited due to the patient's inability to lay in the left lateral decubitus position. Left Ventricle: The left ventricular chamber size is normal. There is no left ventricular hypertrophy. Global left ventricular systolic function is normal. The estimated ejection fraction is 60-65%. Left Atrium: The left atrial chamber size is normal. Right Ventricle: The right ventricular cavity size is normal. Right Atrium: The right atrial cavity size is normal. Aortic Valve: The aortic valve is trileaflet. The aortic valve leaflets are mildly thickened. There is no evidence of aortic regurgitation. There is no evidence of aortic stenosis. Mitral Valve: The mitral valve leaflets are mildly thickened. There is trace of mitral regurgitation. There is no evidence of mitral stenosis. Tricuspid Valve: There is trace tricuspid regurgitation. No pulmonary hypertension is noted. Pulmonic Valve: There is trace pulmonic regurgitation. Pericardium: There is no pericardial effusion. Aorta: There is no dilatation of the aortic root. Venous: The inferior vena cava appears normal in size. Measurements Chambers 2D Name Value Normal Range IVSd (2D) 0.56 cm (0.6 - 1.1) LVPWd (2D) 0.46 cm (0.6 - 1.1) LVIDd (2D) 4.68 cm (3.7 - 5.6) LVIDs (2D) 2.88 cm (2 - 3.8) LV FS (2D) 38.34 % - EF Teichholz (2D) 68.61 % - Ao root diameter (2D) 2.09 cm (2 - 3.7) Diastolic/Systolic Function Name Value Normal Range MV E-wave Vmax 0.6 m/sec - MV deceleration time 165.66 msec - MV A-wave Vmax 0.82 m/sec - MV E:A ratio 0.74 ratio - Aortic Valve Name Value Normal Range LVOT diameter 2.06 cm - Mitral Valve Name Value Normal Range MV PHT 65.46 msec - MVA (PHT) 3.36 cm2 - Tricuspid Valve Name Value Normal Range IVC diameter 1.1 cm (1.2 - 2.3) Pulmonic Valve/Qp:Qs Name Value Normal Range PV Vmax 1.46 m/sec - PV VTI 23.85 cm - PV peak gradient 8.5 mmHg - PV mean gradient 3.7 mmHg - MT end-diastolic Vmax 1.01 m/sec - RVOT Vmax 1.42 m/sec - RVOT VTI 23.28 cm - RVOT peak gradient 8.04 mmHg - Anguiano/IV: Voiding Method Indwelling Catheter IV Catheter Type [Right INT / Saline Lock Antecubital] IV Catheter Type [Right Upper Peripheral IV arm] IV Catheter Type [Right Hand] Peripheral IV IV Catheter Type [Right INT / Saline Lock Forearm] Active Medications - Current Medications Current Medications: Generic Name Dose Route Start Last Admin Trade Name Freq PRN Reason Stop Dose Admin Amlodipine Besylate 10 mg 03/08/20 10:00 03/09/20 09:45 Amlodipine PO 10 mg QDAY DIPTI Administration Apixaban 5 mg 03/09/20 10:00 03/09/20 21:52 Eliquis PO 5 mg Q12HR DIPTI Administration Protocol Hydromorphone HCl 0.25 mg 03/04/20 15:51 03/08/20 23:35 Dilaudid IV 0.25 mg Q4H PRN Administration Pain, Moderate (4-6) Vancomycin HCl 1,250 mg/ 275 mls @ 166.667 mls/hr 03/09/20 10:00 03/09/20 09:45 Sodium Chloride IV 04/03/20 11:38 166.667 mls/hr Q24HR DIPTI Administration Dextrose 1,000 mls @ 75 mls/hr 03/09/20 08:00 03/09/20 09:47 D5w IV 75 mls/hr DIRECT DIPTI Administration Potassium Chloride 10 meq in 100 mls @ 100 mls/hr 03/10/20 08:00 03/10/20 08:00 Kcl 10meq/100ml IV 03/10/20 11:59 100 mls/hr Q1H DIPTI Administration Labetalol HCl 20 mg 03/05/20 03:05 03/07/20 06:33 Labetalol IV 20 mg Q6H PRN Administration Blood Pressure Levothyroxine Sodium 50 mcg 03/10/20 07:15 Synthroid PO DAILY@0600 DIPTI Sodium Chloride 10 ml 03/04/20 22:00 03/09/20 21:51 Sodium Chloride Flush Syringe 10 Ml IV 10 ml BID DIPTI Administration Sodium Chloride 10 ml 03/04/20 15:51 Sodium Chloride Flush Syringe 10 Ml IV PRN PRN LINE FLUSH Tamsulosin HCl 0.4 mg 03/08/20 10:00 03/09/20 09:45 Flomax PO 0.4 mg QDAY DIPTI Administration Nutrition/Malnutrition Assess - Dietary Evaluation Nutrition/Malnutrition Findings: Nutrition Notes Start: 03/05/20 13:40 Freq: Status: Active Protocol: Document 03/07/20 12:12 ARIANNA (Rec: 03/07/20 12:37 ARIANNA [id number]) Co-Sign 03/07/20 12:12 LM Nutrition Notes Initial or Follow up Brief Note Current Diagnosis Acute Kidney Injury,Sepsis, Hypertension Other Pertinent Diagnosis UTI, Metabolic acidosis, hypernatremia, SIRS, Cellulitis Current Diet NPO Subjective/Other Information Per RN, NGT is for water flush . Feeding plan will follow once POC decided. Nutrition Intervention Follow-Up By: 03/11/20 Additional Comments F/U for diet advancement or plan of care.
[2020-03-10] MEDS: VANCOMYCIN 1,250 MG in SODIUM CHLORIDE 0.9% 250ML 250 ML IV SCH (10:00)
--- NOTE | 2020-03-10 12:59 | XRay Report ---
ABDOMEN AP PORTABLE SUPINE 1217 INDICATION: Placement for NG Tube feeding COMPARISON: 03/06/2020 FINDINGS: Feeding tube is coiled in the stomach Signer Name: Guevara Mcrae MD Signed: 03/10/2020 12:54 PM Workstation Name: [id number]
[2020-03-10] MEDS: TAMSULOSIN 0.4 MG CAP PO SCH (13:41)
[2020-03-10] MEDS: LEVOTHYROXINE 50 MCG TAB PO SCH (13:41)
[2020-03-10] MEDS: amLODIPine 10 MG TAB PO SCH (13:41)
[2020-03-10] MEDS: APIXABAN 5 MG TAB PO SCH ×2 (13:42→21:00)
--- NOTE | 2020-03-10 16:20 | Progress Note ---
Assessment and Plan # Acute Kidney Injury, Azotemia: suspect pre-renal etiology given history of limited oral intake, overall poor conditioning. Creatinine improved from 5.4->3.9->2.0->1.4->1.1->1.0 with IVF, now off. Renal ultrasound without acute obstruction. Good urine output noted - on D5w as below - strict Is/Os - avoid nephrotoxins - urinalysis reviewed, defer serologic workup - BP previously reasonable, now on higher side - no indication for renal replacement therapy currently # Hypernatremia, Hyperchloremia: free water deficit noted, sodium has worsened from 154->160->164->158->151->146 today previously on D5 1/2NS, agree with ongoing use D5W as needed, can provide free water with tube feeds, oral hydration once able # Sepsis: IVF, management per primary, appreciate ID, vasc, pulm. 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 Patient now DNR Subjective Date of service: 03/10/20 Principal diagnosis: Sepsis Interval history: No acute changes noted, appears in same mental status, drowsy. Objective - Exam Narrative Exam: Constitutional: confused, ill appearing Head: NC/AT Neck: supple Lungs: clear to auscultation CV: RRR, no M/R/G Abdomen: soft, non-tender, bowel sounds present Back: nontender Extremities: no edema, pulses WNL Skin: intact Neuro: lethargic, sleepy - Vital Signs Vital signs: Vital Signs - 12hr 03/10/20 12:09 Temperature 97.0 F L Pulse Rate 80 Respiratory 22 Rate Blood Pressure 169/73 O2 Sat by Pulse 98 Oximetry - Lab 03/10/20 00:13 03/10/20 00:13 Most recent lab results Magnesium 3.40 mg/dL (1.7-2.3) H 03/04/20 13:38 Calcium 7.9 mg/dL (8.4-10.2) L 03/10/20 00:13 Medications & Allergies - Medications Allergies/Adverse Reactions: Allergies duloxetine [From Cymbalta] Allergy (Verified 03/04/20 12:47) Unknown lamotrigine [From Lamictal] Allergy (Verified 03/04/20 12:47) Unknown milk Allergy (Verified 03/04/20 12:47) Unknown ofloxacin Allergy (Verified 03/04/20 12:47) Unknown pregabalin [From Lyrica] Allergy (Verified 03/04/20 12:47) Unknown Home Medications: Home Medications Medication Instructions Recorded Confirmed Last Taken Type Acetaminophen [Tylenol] 650 mg PO Q6H PRN 03/04/20 03/04/20 Unknown History Aspirin [Adult Aspirin] 81 mg PO DAILY 03/04/20 03/04/20 Unknown History Cholecalciferol (Vitamin D3) 2,000 unit PO QDAY 03/04/20 03/04/20 Unknown History [Vitamin D3 2,000 UNIT CAP] Enoxaparin [Lovenox] 40 mg SQ QDAY 03/04/20 03/04/20 Unknown History HYDROcodone/APAP 5-325 [Justice 1 each PO Q8HR PRN 03/04/20 03/04/20 Unknown History 5/325] LORazepam [Lorazepam] 0.5 mg PO DAILY 03/04/20 03/04/20 Unknown History Lactobacillus Rhamnosus GG 1 each PO QDAY 03/04/20 03/04/20 Unknown History [Culturelle] Levothyroxine [Synthroid] 75 mcg PO QAM 03/04/20 03/04/20 Unknown History Melatonin 1 mg PO QHS 03/04/20 03/04/20 Unknown History Polyethylene Glycol 3350 17 gm PO DAILY PRN 03/04/20 03/04/20 Unknown History [Powderlax] Sertraline [Zoloft] 100 mg PO QDAY 03/04/20 03/04/20 Unknown History Tamsulosin [Flomax] 0.4 mg PO QDAY 03/04/20 03/04/20 Unknown History lisinopriL [Zestril] 20 mg PO QDAY 03/04/20 03/04/20 Unknown History risperiDONE [RisperDAL] 0.25 mg PO QHS 03/04/20 03/04/20 Unknown History Active Medications: Generic Name Dose Route Start Last Admin Trade Name Freq PRN Reason Stop Dose Admin Amlodipine Besylate 10 mg 03/08/20 10:00 03/10/20 13:41 Amlodipine PO 10 mg QDAY DIPTI Administration Apixaban 5 mg 03/09/20 10:00 03/10/20 13:42 Eliquis PO 5 mg Q12HR DIPTI Administration Protocol Hydromorphone HCl 0.25 mg 03/04/20 15:51 03/08/20 23:35 Dilaudid IV 0.25 mg Q4H PRN Administration Pain, Moderate (4-6) Vancomycin HCl 1,250 mg/ 275 mls @ 166.667 mls/hr 03/09/20 10:00 03/10/20 10:00 Sodium Chloride IV 04/03/20 11:38 166.667 mls/hr Q24HR DIPTI Administration Dextrose 1,000 mls @ 75 mls/hr 03/09/20 08:00 03/09/20 09:47 D5w IV 75 mls/hr DIRECT DIPTI Administration Labetalol HCl 20 mg 03/05/20 03:05 03/07/20 06:33 Labetalol IV 20 mg Q6H PRN Administration Blood Pressure Levothyroxine Sodium 50 mcg 03/10/20 07:15 03/10/20 13:41 Synthroid PO 50 mcg DAILY@0600 DIPTI Administration Sodium Chloride 10 ml 03/04/20 22:00 03/10/20 10:00 Sodium Chloride Flush Syringe 10 Ml IV 10 ml BID IDPTI Administration Sodium Chloride 10 ml 03/04/20 15:51 Sodium Chloride Flush Syringe 10 Ml IV PRN PRN LINE FLUSH Tamsulosin HCl 0.4 mg 03/08/20 10:00 03/10/20 13:41 Flomax PO 0.4 mg QDAY DIPTI Administration
[2020-03-11 01:39] LABS: Basophils % (Auto) 0.3 % (0.0-1.8); Eosinophils # (Auto) 0.2 K/mm3 (0.0-0.4); Eosinophils % (Auto) 1.7 % (0.0-4.3); Hematocrit 27.8 % (35.5-45.6); Hemoglobin 9.3 gm/dl (11.8-15.2); Lymphocytes # (Auto) 1.1 K/mm3 (1.2-5.4); Lymphocytes % (Auto) 7.5 % (13.4-35.0); Mean Corpuscular HGB Conc 34 % (32-34); Mean Corpuscular Volume 88 fl (84-94); Monocytes # (Auto) 0.6 K/mm3 (0.0-0.8); Monocytes % (Auto) 4.5 % (0.0-7.3); Platelet Count 259 K/mm3 (140-440); Red Blood Count 3.14 M/mm3 (3.65-5.03); Red Cell Distribution Width 14.8 % (13.2-15.2)
[2020-03-11 01:52] LABS: Alanine Aminotransferase 24 units/L (7-56); Albumin 2.2 g/dL (3.9-5); BUN/Creatinine Ratio 23; Blood Urea Nitrogen 18 mg/dL (9-20); Calcium 7.7 mg/dL (8.4-10.2); Hemolysis Index 12
[2020-03-11] MEDS: LEVOTHYROXINE 50 MCG TAB PO SCH (05:52)
[2020-03-11] MEDS: TAMSULOSIN 0.4 MG CAP PO SCH (09:00)
[2020-03-11] MEDS: VANCOMYCIN 1,250 MG in SODIUM CHLORIDE 0.9% 250ML 250 ML IV SCH (09:00)
[2020-03-11] MEDS: APIXABAN 5 MG TAB PO SCH (09:00)
[2020-03-11] MEDS: amLODIPine 10 MG TAB PO SCH (09:00)
--- NOTE | 2020-03-11 09:52 | Progress Note ---
Assessment and Plan # Acute Kidney Injury, Azotemia: suspect pre-renal etiology given history of limited oral intake, overall poor conditioning. Creatinine improved from 5.4->3.9->2.0->1.4->1.1->1.0> 0.8 with IVF, now off. Renal ultrasound without acute obstruction. Good urine output noted - strict Is/Os - avoid nephrotoxins - urinalysis reviewed, defer serologic workup # Hypernatremia, Hyperchloremia: Serum sodium has come down to 134. Patient is currently receiving free water 250 cc every 4 hours. Reduce to every 6 hours. # Sepsis: management per primary, appreciate ID, vasc, pulm. 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 Patient now DNR Shall follow patient peripherally Subjective Date of service: 03/11/20 Principal diagnosis: Sepsis Interval history: Patient appears comfortable today. He is arousable. Currently has a Dobbhoff tube in place. Receiving free water through the tube. Patient does not have any other oral intake at this time. Objective - Vital Signs Vital signs: Vital Signs - 12hr 03/11/20 03/11/20 00:44 04:20 Temperature 97.8 F 98.6 F Pulse Rate 84 Respiratory 16 16 Rate Blood Pressure 185/72 167/75 O2 Sat by Pulse 97 Oximetry - General Appearance General appearance: chronically ill, frail EENT: PERRL, mucous membranes moist Neck: no JVD, no thyromegaly, no carotid bruit, supple Respiratory: Present: Clear to Ascultation Cardiology: regular, normal heart rate, S1S2, no murmurs Gastrointestinal: normal, normoactive bowel sounds Integumentary: other (No edema) - Lab 03/11/20 01:07 03/11/20 01:07 Most recent lab results Magnesium 3.40 mg/dL (1.7-2.3) H 03/04/20 13:38 Calcium 7.7 mg/dL (8.4-10.2) L 03/11/20 01:07 Medications & Allergies - Medications Allergies/Adverse Reactions: Allergies duloxetine [From Cymbalta] Allergy (Verified 03/04/20 12:47) Unknown lamotrigine [From Lamictal] Allergy (Verified 03/04/20 12:47) Unknown milk Allergy (Verified 03/04/20 12:47) Unknown ofloxacin Allergy (Verified 03/04/20 12:47) Unknown pregabalin [From Lyrica] Allergy (Verified 03/04/20 12:47) Unknown Home Medications: Home Medications Medication Instructions Recorded Confirmed Last Taken Type Acetaminophen [Tylenol] 650 mg PO Q6H PRN 03/04/20 03/04/20 Unknown History Aspirin [Adult Aspirin] 81 mg PO DAILY 03/04/20 03/04/20 Unknown History Cholecalciferol (Vitamin D3) 2,000 unit PO QDAY 03/04/20 03/04/20 Unknown History [Vitamin D3 2,000 UNIT CAP] Enoxaparin [Lovenox] 40 mg SQ QDAY 03/04/20 03/04/20 Unknown History HYDROcodone/APAP 5-325 [Allen 1 each PO Q8HR PRN 03/04/20 03/04/20 Unknown History 5/325] LORazepam [Lorazepam] 0.5 mg PO DAILY 03/04/20 03/04/20 Unknown History Lactobacillus Rhamnosus GG 1 each PO QDAY 03/04/20 03/04/20 Unknown History [Culturelle] Levothyroxine [Synthroid] 75 mcg PO QAM 03/04/20 03/04/20 Unknown History Melatonin 1 mg PO QHS 03/04/20 03/04/20 Unknown History Polyethylene Glycol 3350 17 gm PO DAILY PRN 03/04/20 03/04/20 Unknown History [Powderlax] Sertraline [Zoloft] 100 mg PO QDAY 03/04/20 03/04/20 Unknown History Tamsulosin [Flomax] 0.4 mg PO QDAY 03/04/20 03/04/20 Unknown History lisinopriL [Zestril] 20 mg PO QDAY 03/04/20 03/04/20 Unknown History risperiDONE [RisperDAL] 0.25 mg PO QHS 03/04/20 03/04/20 Unknown History Active Medications: Generic Name Dose Route Start Last Admin Trade Name Freq PRN Reason Stop Dose Admin Amlodipine Besylate 10 mg 03/08/20 10:00 03/11/20 09:00 Amlodipine PO 10 mg QDAY DIPTI Administration Apixaban 5 mg 03/09/20 10:00 03/11/20 09:00 Eliquis PO 5 mg Q12HR DIPTI Administration Protocol Hydromorphone HCl 0.25 mg 03/04/20 15:51 03/08/20 23:35 Dilaudid IV 0.25 mg Q4H PRN Administration Pain, Moderate (4-6) Vancomycin HCl 1,250 mg/ 275 mls @ 166.667 mls/hr 03/09/20 10:00 03/11/20 09:00 Sodium Chloride IV 04/03/20 11:38 166.667 mls/hr Q24HR DIPTI Administration Labetalol HCl 20 mg 03/05/20 03:05 03/07/20 06:33 Labetalol IV 20 mg Q6H PRN Administration Blood Pressure Levothyroxine Sodium 50 mcg 03/10/20 07:15 03/11/20 05:52 Synthroid PO 50 mcg DAILY@0600 DIPTI Administration Sodium Chloride 10 ml 03/04/20 22:00 03/11/20 09:01 Sodium Chloride Flush Syringe 10 Ml IV 10 ml BID DIPTI Administration Sodium Chloride 10 ml 03/04/20 15:51 Sodium Chloride Flush Syringe 10 Ml IV PRN PRN LINE FLUSH Tamsulosin HCl 0.4 mg 03/08/20 10:00 03/11/20 09:00 Flomax PO 0.4 mg QDAY DIPTI Administration
--- NOTE | 2020-03-11 10:05 | Progress Note ---
Assessment and Plan Assessment and plan: HPI on admission 74 YO Male Detention Facility Resident at [facility], formerly [facility] with HTN, Hypothyroidism, Alzheimers Dementia with A FAST Score of 7E and PPS of 30% who is currently bedbound and requires 6/6 assistance with activities of daily living, Debility presents to ED for evaluation. Patient is nonverbal, lethargic and is unable to provide history at the time of my evaluation. Patient is at bedside during exam and interview and provides history. As per the patient has experienced a rapid decline in his state of health after suffering a fall complicated by hip fracture on February 13. Patient reports increased confusion as well as right neck swelling over the past 2 days with progressively worsening symptoms over the same timeframe. EMS was notified and upon arrival the patient was found to be in distress and subsequently transported to [facility] for further care and evaluation of the aforementioned symptoms. Patient seen and evaluated in the emergency department. Lab and imaging studies reviewed. 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 Patient admitted to ICU due to increased risk of multisystem decompensation. Vascular surgery service consulted in the emergency department and the patient is initiated on a heparin drip. Patient found to have poor prognosis. Advanced care planning conducted in ED. Patient prognosis discussed with . Patient acknowledges understanding and agreement with care plan. Patient is confused and lethargic at the time of my evaluation but the patient has a positive gag reflex and is able to protect his airway without difficulty. 03/05. Spouse at bedside. He responds when called. ID consulted for sepsis 2/2 cellulitis vs parotitis. He is on anticoagulation. Maintained on antibiotics. He still has tom on left hip and will need to have this removed. Had hip replacement 02/14. Will get ortho for this. Discussed with spouse at bedside. 03/06. Sodium 164. Fluids switched to D5 water. Still maintain on IV an tibiotics. ID, nephrology and surgery following. Awaiting Ortho evaluation for staple removal. MRI of the neck ordered to rule out any underlying abscess. May need ENT evaluation 03/07. MRI shows parotitis with no abscess or fluid collection. Sodium increased to 171 yesterday so he had to be started on free water via NG tube. Currently on D5 water as well. Sodium this morning is 164. D5 water rate reduced to 100 cc/h. Nephrology is following. Orthopedic surgery also following for left hip replacement management. 03/08. Slightly more alert today. Sodium 158 this AM. Will monitor for now and stop NGT free water if it continues to improve. BC grew MRSA - he is on antibiotics and ID is following. Resumed BP medications. Cr back to baseline. 03/09. Sodium level improving. Discussed with spouse. [place] evaluation pending. 03/11. Sodium 134. Switch fluid to D51/2. Needs to start feeds. Nutrition consult. Swallow evaluation pending. Problems (1) MRSA bacteremia Current Visit: Yes Status: Acute Qualifiers: Severe sepsis acute organ dysfunction type: acute renal failure Plan to address problem: From neck infection Continue vancomycin ID and Vascular surgery following (2) Toxic metabolic encephalopathy Current Visit: Yes Status: Acute Plan to address problem: Continue IV antibiotics Monitoring (3) Acute kidney injury with acute tubular necrosis Current Visit: Yes Status: Acute Plan to address problem: Resolved Nephrology following closely (5) Lemierre syndrome Current Visit: Yes Status: Acute Plan to address problem: Vascular surgery on board MRI of the neck shows no abscess or fluid collection. Continue anticoagulation. Plan to switch to oral antibiotics. Will discuss plan with surgery (6) Cellulitis, neck Current Visit: Yes Status: Acute Plan to address problem: Continue antibiotics (7) Hypernatremia Current Visit: Yes Status: Acute Plan to address problem: Improving Resolved Nephrology recommendations appreciated (8) Metabolic acidosis Current Visit: Yes Status: Acute Plan to address problem: Resolved (9) DVT prophylaxis Current Visit: Yes Status: Acute Plan to address problem: SCD to bilateral lower extremities while in bed, continue therapeutic anticoag ulation (10) Advance care planning Current Visit: Yes Status: Acute Plan to address problem: Disease education conducted, prognosis discussed. Patient is full code. Patient has very poor prognosis. Patient's acknowledges understanding and agreement with care plan, +30 minutes. History Interval history: Patient seen and examined at bedside this morning. Appears more alert compared with yesterday. BC +ve MRSA. Sodiumm 134. D5 switched D51/2NS. Still awaiting swallow evaluation Hospitalist Physical - Constitutional Vitals: Temp Pulse Resp BP Pulse Ox 98.6 F 84 16 167/75 97 03/11/20 04:20 03/11/20 04:20 03/11/20 04:20 03/11/20 04:20 03/11/20 04:20 General appearance: Present: no acute distress - EENT Eyes: Present: PERRL - Abdominal General gastrointestinal: soft, non-tender, normal bowel sounds - Neurologic Neurologic: CNII-XII intact Results - Labs CBC & Chem 7: 03/11/20 01:07 03/11/20 01:07 Labs: Laboratory Last Values WBC 14.0 K/mm3 (4.5-11.0) H 03/11/20 01:07 RBC 3.14 M/mm3 (3.65-5.03) L 03/11/20 01:07 Hgb 9.3 gm/dl (11.8-15.2) L 03/11/20 01:07 Hct 27.8 % (35.5-45.6) L 03/11/20 01:07 MCV 88 fl (84-94) 03/11/20 01:07 MCH 30 pg (28-32) 03/11/20 01:07 MCHC 34 % (32-34) 03/11/20 01:07 RDW 14.8 % (13.2-15.2) 03/11/20 01:07 Plt Count 259 K/mm3 (140-440) 03/11/20 01:07 Lymph % (Auto) 7.5 % (13.4-35.0) L 03/11/20 01:07 [place] % (Auto) 4.5 % (0.0-7.3) 03/11/20 01:07 Eos % (Auto) 1.7 % (0.0-4.3) 03/11/20 01:07 Baso % (Auto) 0.3 % (0.0-1.8) 03/11/20 01:07 Lymph # (Auto) 1.1 K/mm3 (1.2-5.4) L 03/11/20 01:07 [place] # (Auto) 0.6 K/mm3 (0.0-0.8) 03/11/20 01:07 Eos # (Auto) 0.2 K/mm3 (0.0-0.4) 03/11/20 01:07 Baso # (Auto) 0.0 K/mm3 (0.0-0.1) 03/11/20 01:07 Add Manual Diff Complete 03/04/20 13:38 Total Counted 100 03/04/20 13:38 Seg Neutrophils % 86.0 % (40.0-70.0) H 03/11/20 01:07 Seg Neuts % (Manual) 91.0 % (40.0-70.0) H 03/04/20 13:38 Band Neutrophils % 2.0 % 03/04/20 13:38 Lymphocytes % (Manual) 3.0 % (13.4-35.0) L 03/04/20 13:38 Reactive Lymphs % (Man) 0 % 03/04/20 13:38 Monocytes % (Manual) 4.0 % (0.0-7.3) 03/04/20 13:38 Eosinophils % (Manual) 0 % (0.0-4.3) 03/04/20 13:38 Basophils % (Manual) 0 % (0.0-1.8) 03/04/20 13:38 Metamyelocytes % 0 % 03/04/20 13:38 Myelocytes % 0 % 03/04/20 13:38 Promyelocytes % 0 % 03/04/20 13:38 Blast Cells % 0 % 03/04/20 13:38 Nucleated RBC % 1.0 % (0.0-0.9) H 03/04/20 13:38 Seg Neutrophils # 12.1 K/mm3 (1.8-7.7) H 03/11/20 01:07 Seg Neutrophils # Man 29.0 K/mm3 (1.8-7.7) H 03/04/20 13:38 Band Neutrophils # 0.6 K/mm3 03/04/20 13:38 Lymphocytes # (Manual) 1.0 K/mm3 (1.2-5.4) L 03/04/20 13:38 Abs React Lymphs (Man) 0.0 K/mm3 03/04/20 13:38 Hypersegmented Neuts Not Reportable 03/04/20 13:38 Hyposegmented Neuts Not Reportable 03/04/20 13:38 Monocytes # (Manual) 1.3 K/mm3 (0.0-0.8) H 03/04/20 13:38 Hypogranular Neuts Not Reportable 03/04/20 13:38 Eosinophils # (Manual) 0.0 K/mm3 (0.0-0.4) 03/04/20 13:38 Basophils # (Manual) 0.0 K/mm3 (0.0-0.1) 03/04/20 13:38 Metamyelocytes # 0.0 K/mm3 03/04/20 13:38 Myelocytes # 0.0 K/mm3 03/04/20 13:38 Promyelocytes # 0.0 K/mm3 03/04/20 13:38 Blast Cells # 0.0 K/mm3 03/04/20 13:38 Smudge Cells Not Reportable 03/04/20 13:38 WBC Morphology Not Reportable 03/04/20 13:38 Toxic Granulation Not Reportable 03/04/20 13:38 Toxic Vacuolation Not Reportable 03/04/20 13:38 Dohle Bodies Not Reportable 03/04/20 13:38 Pelger-Huet Anomaly Not Reportable 03/04/20 13:38 Armand Rods Not Reportable 03/04/20 13:38 Clumped Platelets Not Reportable 03/04/20 13:38 Plt Clumps, EDTA Not Reportable 03/04/20 13:38 Large Platelets Not Reportable 03/04/20 13:38 Giant Platelets Not Reportable 03/04/20 13:38 Platelet Satelliting Not Reportable 03/04/20 13:38 Plt Morphology Comment Not Reportable 03/04/20 13:38 RBC Morphology Not Reportable 03/04/20 13:38 Dimorphic RBCs Not Reportable 03/04/20 13:38 Polychromasia Not Reportable 03/04/20 13:38 Hypochromasia Not Reportable 03/04/20 13:38 Poikilocytosis Not Reportable 03/04/20 13:38 Microcytosis Not Reportable 03/04/20 13:38 Spherocytes Not Reportable 03/04/20 13:38 Pappenheimer Bodies Not Reportable 03/04/20 13:38 Sickle Cells Not Reportable 03/04/20 13:38 Target Cells Not Reportable 03/04/20 13:38 Tear Drop Cells Not Reportable 03/04/20 13:38 Ovalocytes Not Reportable 03/04/20 13:38 Helmet Cells Not Reportable 03/04/20 13:38 Russell-[place] Bodies Not Reportable 03/04/20 13:38 [place] Rings Not Reportable 03/04/20 13:38 [place] Cells Not Reportable 03/04/20 13:38 Bite Cells Not Reportable 03/04/20 13:38 Crenated Cell Not Reportable 03/04/20 13:38 Elliptocytes Not Reportable 03/04/20 13:38 Acanthocytes (Spur) Not Reportable 03/04/20 13:38 Platelet Estimate Consistent w auto 03/04/20 13:38 Rouleaux Not Reportable 03/04/20 13:38 Hemoglobin C Crystals Not Reportable 03/04/20 13:38 Schistocytes Not Reportable 03/04/20 13:38 Malaria parasites Not Reportable 03/04/20 13:38 Anisocytosis Few 03/04/20 13:38 Macrocytosis Few 03/04/20 13:38 Torsten Bodies Not Reportable 03/04/20 13:38 Hem Pathologist Commnt No 03/04/20 13:38 PT 15.6 Sec. (12.2-14.9) H 03/04/20 13:38 INR 1.21 (0.87-1.13) H 03/04/20 13:38 APTT 33.0 Sec. (24.2-36.6) 03/04/20 13:38 Heparin Anti-Xa Level 1.13 U.I./ml (0.3-0.7) H 03/09/20 18:14 Sodium 134 mmol/L (137-145) L D 03/11/20 01:07 Potassium 3.5 mmol/L (3.6-5.0) L 03/11/20 01:07 Chloride 102.2 mmol/L (98-107) 03/11/20 01:07 Carbon Dioxide 20 mmol/L (22-30) L 03/11/20 01:07 Anion Gap 15 mmol/L 03/11/20 01:07 BUN 18 mg/dL (9-20) 03/11/20 01:07 Creatinine 0.8 mg/dL (0.8-1.3) 03/11/20 01:07 Estimated GFR > 60 ml/min 03/11/20 01:07 BUN/Creatinine Ratio 23 % 03/11/20 01:07 Glucose 110 mg/dL (75-100) H 03/11/20 01:07 POC Glucose 125 (70-105) H 03/11/20 07:56 Lactic Acid 1.40 mmol/L (0.7-2.0) 03/05/20 05:16 Osmolality 359 Mosm/kg 03/07/20 00:22 Magnesium 3.40 mg/dL (1.7-2.3) H 03/04/20 13:38 Calcium 7.7 mg/dL (8.4-10.2) L 03/11/20 01:07 Total Bilirubin 0.50 mg/dL (0.1-1.2) 03/11/20 01:07 Total Creatine Kinase 82 units/L (55-170) 03/04/20 13:38 AST 38 units/L (5-40) 03/11/20 01:07 ALT 24 units/L (7-56) 03/11/20 01:07 Alkaline Phosphatase 130 units/L (35-129) H 03/11/20 01:07 Total Protein 6.2 g/dL (6.3-8.2) L 03/11/20 01:07 Albumin 2.2 g/dL (3.9-5) L 03/11/20 01:07 Albumin/Globulin Ratio 0.6 % 03/11/20 01:07 TSH 8.020 mlU/mL (0.270-4.200) H 03/09/20 00:43 Urine Color [place] (Yellow) 03/04/20 13:55 Urine Turbidity Turbid (Clear) 03/04/20 13:55 Urine pH 5.0 (5.0-7.0) 03/04/20 13:55 Ur Specific [place] 1.017 (1.003-1.030) 03/04/20 13:55 Urine Protein 30 mg/dl mg/dL (Negative) 03/04/20 13:55 Urine Glucose (UA) Neg mg/dL (Negative) 03/04/20 13:55 Urine Ketones Neg mg/dL (Negative) 03/04/20 13:55 Urine Blood Sm (Negative) 03/04/20 13:55 Urine Nitrite Neg (Negative) 03/04/20 13:55 Urine Bilirubin Neg (Negative) 03/04/20 13:55 Urine Urobilinogen < 2.0 mg/dL (<2.0) 03/04/20 13:55 Ur Leukocyte Esterase Lg (Negative) 03/04/20 13:55 Urine WBC (Auto) > 182.0 /HPF (0.0-6.0) H 03/04/20 13:55 Urine RBC (Auto) 31.0 /HPF (0.0-6.0) 03/04/20 13:55 U Epithel Cells (Auto) 1.0 /HPF (0-13.0) 03/04/20 13:55 Urine Bacteria (Auto) 4+ /HPF (Negative) 03/04/20 13:55 Ur Transition Epith Cell 5 /HPF 03/04/20 13:55 Urine Mucus Few /HPF 03/04/20 13:55 Urine Osmolality 501 Mosm/kg 03/06/20 19:11 Vancomycin Trough 12.8 ug/mL (5.0-20.0) 03/08/20 08:24 Random Vancomycin 7.8 ug/mL (0-40.0) 03/06/20 07:01 Salicylates < 0.3 mg/dL (2.8-20.0) L 03/04/20 13:38 Acetaminophen 5.0 ug/mL (10.0-30.0) L 03/04/20 13:38 Blood Type A POSITIVE 03/04/20 16:15 Antibody Screen Negative 03/04/20 16:15 Microbiology: Microbiology 03/06/20 18:12 Peripheral/Venous Blood Culture - Preliminary NO GROWTH AFTER 4 DAYS 03/06/20 14:18 Peripheral/Venous Blood Culture - Preliminary NO GROWTH AFTER 4 DAYS 03/04/20 13:38 Peripheral/Venous Blood Culture - Final Methicillin Resist S. Aureus - Diagnostic Impressions Diagnostic Impressions: Echocardiogram 03/06/20 11:55 Transthoracic Echocardiogram Indication: Bacteremia Eval for Vegetation BP: 173/83 HR: 357 Conclusions *The study quality is technically difficult. Poor accoustic windows. *Global left ventricular systolic function is normal. *The estimated ejection fraction is 60-65%. *There is trace of mitral regurgitation. *There is trace tricuspid regurgitation. Findings Procedure Info: The study quality is technically difficult. Patient unresponsive and combative during echo. The study is technically limited due to poor acoustic windows. The study is technically limited due to patient body habitus. The study was technically limited due to the patient's inability to lay in the left lateral decubitus position. Left Ventricle: The left ventricular chamber size is normal. There is no left ventricular hypertrophy. Global left ventricular systolic function is normal. The estimated ejection fraction is 60-65%. Left Atrium: The left atrial chamber size is normal. Right Ventricle: The right ventricular cavity size is normal. Right Atrium: The right atrial cavity size is normal. Aortic Valve: The aortic valve is trileaflet. The aortic valve leaflets are mildly thickened. There is no evidence of aortic regurgitation. There is no evidence of aortic stenosis. Mitral Valve: The mitral valve leaflets are mildly thickened. There is trace of mitral regurgitation. There is no evidence of mitral stenosis. Tricuspid Valve: There is trace tricuspid regurgitation. No pulmonary hypertension is noted. Pulmonic Valve: There is trace pulmonic regurgitation. Pericardium: There is no pericardial effusion. Aorta: There is no dilatation of the aortic root. Venous: The inferior vena cava appears normal in size. Measurements Chambers 2D Name Value Normal Range IVSd (2D) 0.56 cm (0.6 - 1.1) LVPWd (2D) 0.46 cm (0.6 - 1.1) LVIDd (2D) 4.68 cm (3.7 - 5.6) LVIDs (2D) 2.88 cm (2 - 3.8) LV FS (2D) 38.34 % - EF Teichholz (2D) 68.61 % - Ao root diameter (2D) 2.09 cm (2 - 3.7) Diastolic/Systolic Function Name Value Normal Range MV E-wave Vmax 0.6 m/sec - MV deceleration time 165.66 msec - MV A-wave Vmax 0.82 m/sec - MV E:A ratio 0.74 ratio - Aortic Valve Name Value Normal Range LVOT diameter 2.06 cm - Mitral Valve Name Value Normal Range MV PHT 65.46 msec - MVA (PHT) 3.36 cm2 - Tricuspid Valve Name Value Normal Range IVC diameter 1.1 cm (1.2 - 2.3) Pulmonic Valve/Qp:Qs Name Value Normal Range PV Vmax 1.46 m/sec - PV VTI 23.85 cm - PV peak gradient 8.5 mmHg - PV mean gradient 3.7 mmHg - ME end-diastolic Vmax 1.01 m/sec - RVOT Vmax 1.42 m/sec - RVOT VTI 23.28 cm - RVOT peak gradient 8.04 mmHg - Anguiano/IV: Voiding Method Indwelling Catheter IV Catheter Type [Right INT / Saline Lock Antecubital] IV Catheter Type [Right Upper Peripheral IV arm] IV Catheter Type [Right Hand] Peripheral IV IV Catheter Type [Right INT / Saline Lock Forearm] Active Medications - Current Medications Current Medications: Generic Name Dose Route Start Last Admin Trade Name Freq PRN Reason Stop Dose Admin Amlodipine Besylate 10 mg 03/08/20 10:00 03/11/20 09:00 Amlodipine PO 10 mg QDAY DIPTI Administration Apixaban 5 mg 03/09/20 10:00 03/11/20 09:00 Eliquis PO 5 mg Q12HR DIPTI Administration Protocol Clonidine HCl 0.1 mg 03/11/20 10:00 Catapres-Tts Patch TD QWEEK DIPTI Hydromorphone HCl 0.25 mg 03/04/20 15:51 03/08/20 23:35 Dilaudid IV 0.25 mg Q4H PRN Administration Pain, Moderate (4-6) Vancomycin HCl 1,250 mg/ 275 mls @ 166.667 mls/hr 03/09/20 10:00 03/11/20 09:00 Sodium Chloride IV 04/03/20 11:38 166.667 mls/hr Q24HR DIPTI Administration Labetalol HCl 20 mg 03/05/20 03:05 03/07/20 06:33 Labetalol IV 20 mg Q6H PRN Administration Blood Pressure Levothyroxine Sodium 50 mcg 03/10/20 07:15 03/11/20 05:52 Synthroid PO 50 mcg DAILY@0600 DIPTI Administration Sodium Chloride 10 ml 03/04/20 22:00 03/11/20 09:01 Sodium Chloride Flush Syringe 10 Ml IV 10 ml BID DIPTI Administration Sodium Chloride 10 ml 03/04/20 15:51 Sodium Chloride Flush Syringe 10 Ml IV PRN PRN LINE FLUSH Tamsulosin HCl 0.4 mg 03/08/20 10:00 03/11/20 09:00 Flomax PO 0.4 mg QDAY DIPTI Administration Nutrition/Malnutrition Assess - Dietary Evaluation Nutrition/Malnutrition Findings: Nutrition Notes Start: 03/05/20 13:40 Freq: Status: Active Protocol: Document 03/07/20 12:12 ARIANNA (Rec: 03/07/20 12:37 ARIANNA [id number]) Co-Sign 03/07/20 12:12 LM Nutrition Notes Initial or Follow up Brief Note Current Diagnosis Acute Kidney Injury,Sepsis, Hypertension Other Pertinent Diagnosis UTI, Metabolic acidosis, hypernatremia, SIRS, Cellulitis Current Diet NPO Subjective/Other Information Per RN, NGT is for water flush . Feeding plan will follow once POC decided. Nutrition Intervention Follow-Up By: 03/11/20 Additional Comments F/U for diet advancement or plan of care.
[2020-03-11] MEDS ORDERED: cloNIDine TTS 0.1 MG/24 HR PATCH TD SCH (11:00)
--- NOTE | 2020-03-11 13:48 | Discharge Summary ---
Providers - Providers Date of Admission: 03/04/20 15:51 Date of discharge: 03/11/20 Attending physician: MARYCARMEN WEBSTER 03/04/20 14:26 Consult to Physician [CONS] Urgent Comment: Consulting Provider: REAL AZUL Physician Instructions: Reason For Exam: lenore 03/04/20 15:18 Consult to Physician [CONS] Urgent Comment: Consulting Provider: NORMA OLEA Physician Instructions: Reason For Exam: ij thrmobosis 03/05/20 08:27 Consult to Physician [CONS] Routine Comment: Consulting Provider: SOFIA MOURA Physician Instructions: Reason For Exam: neck cellulitis 03/05/20 15:14 Consult to Wound/ET Nurse [CONS] Routine Reason For Exam: sacral 03/06/20 07:10 Consult to Physician [CONS] Routine Comment: Consulting Provider: DEX CABELLO Physician Instructions: Reason For Exam: s/p left hip surgery 3 weeks ago- staple removal 03/06/20 15:59 Consult to Physician [CONS] Routine Comment: Consulting Provider: SUZY VALENTINO Physician Instructions: Reason For Exam: urinary retention 03/08/20 10:17 Consult to Case Management [CONS] Stat Services Needed at Discharge: Other Notified:: call out clerk Additional Physician Instructions: [facility] ([facility] ) [address] [address] [place] [address] OUTPATIENT PARENTERAL ANTIBIOTIC THERAPY (OPAT) ORDERS Diagnoses: MRSA bacteremia, right parotitis Administer: vancomycin 1 g IV once a day total 4 weeks until 04/03/2020. Keep vancomycin trough 10-20 mcg/mL Remove PICC line after last dose unless otherwise instructed. Line: Maintain IV access with weekly dressing changes and locks per protocol. Labs: Every Wednesday CBC, AST, ALT, Creatinine, vancomcyin trough. Please fax results to [phone] and call [phone] for critical lab results. Sofia Del Angel MD Infectious Diseases Manager Gyn [facility] ([facility]) O: [phone] F: [phone] 03/08/20 21:25 Speech Therapy Evaluation and Treat [CONS] Routine Reason For Exam: Swallow evaluation 03/10/20 09:19 Physical Therapy Evaluation and Treat [CONS] Routine Comment: Reason For Exam: Debility 03/11/20 10:03 Consult to Dietitian/Nutrition [CONS] Routine Physician Instructions: Reason For Exam: Reason for Consult: Write/Manage Tube Feeding Primary care physician: [employer] Hospitalization Condition: Serious Hospital course: 74 YO Male Jail Facility Resident at [facility] with HTN, Hypothyroidism, Alzheimers Dementia with A FAST Score of 7E and PPS of 30% who is currently bedbound and requires 6/6 assistance with activities of daily living, Debility presents to ED for evaluation. Patient is nonverbal, lethargic and is unable to provide history at the time of my evaluation. Patient is at bedside during exam and interview and provides history. As per the patient has experienced a rapid decline in his state of health after suffering a fall complicated by hip fracture on February 13. Patient reports increased confusion as well as right neck swelling over the past 2 days with progressively worsening symptoms over the same timeframe. EMS was notified and upon arrival the patient was found to be in distress and subsequently transported to [facility] for further care and evaluation of the aforementioned symptoms. Patient seen and evaluated in the emergency department. Lab and imaging studies reviewed. 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 Patient admitted to ICU due to increased risk of multisystem decompensation. Vascular surgery service consulted in the emergency department and the patient is initiated on a heparin drip. Patient found to have poor prognosis. Advanced care planning conducted in ED. Patient prognosis discussed with . Patient acknowledges understanding and agreement with care plan. Patient is confused and lethargic at the time of my evaluation but the patient has a positive gag reflex and is able to protect his airway without difficulty. 03/05. Spouse at bedside. He responds when called. ID consulted for sepsis 2/2 cellulitis vs parotitis. He is on anticoagulation. Maintained on antibiotics. He still has tom on left hip and will need to have this removed. Had hip replacement 02/14. Will get ortho for this. Discussed with spouse at bedside. 03/06. Sodium 164. Fluids switched to D5 water. Still maintain on IV antibiotics. ID, nephrology and surgery following. Awaiting Ortho evaluation for staple removal. MRI of the neck ordered to rule out any underlying abscess. May need ENT evaluation 03/07. MRI shows parotitis with no abscess or fluid collection. Sodium increased to 171 yesterday so he had to be started on free water via NG tube. Currently on D5 water as well. Sodium this morning is 164. D5 water rate reduced to 100 cc/h. Nephrology is following. Orthopedic surgery also following for left hip replacement management. 03/08. Slightly more alert today. Sodium 158 this AM. Will monitor for now and stop NGT free water if it continues to improve. BC grew MRSA - he is on antibiotics and ID is following. Resumed BP medications. Cr back to baseline. 03/09. Sodium level improving. Discussed with spouse. Swallow evaluation pending. 03/11. Sodium 134. Fluids discontinued. Discussed with spouse. She wants him to go to hospice. She says she does not want him to go through signifcant suffering. The hospice facility will not take him on IV. Spouse is ok with oral antibiotics. He has passed speech evaluation and will need to be on pureed diet. Disposition: [id number] ([facility]) Core Measure Documentation - Palliative Care Palliative Care/ Comfort Measures: Hospice Care - Core Measures Any of the following diagnoses?: none Exam - Constitutional Vitals: Temp Pulse Resp BP Pulse Ox 98.0 F 97 H 18 148/69 99 03/11/20 11:43 03/11/20 11:43 03/11/20 11:43 03/11/20 11:43 03/11/20 11:43 General appearance: Present: no acute distress, well-nourished - EENT Eyes: Present: PERRL ENT: hearing intact, clear oral mucosa - Neck Neck: Present: supple, normal ROM - Respiratory Respiratory effort: normal Respiratory: bilateral: CTA - Cardiovascular Heart Sounds: Present: S1 & S2. Absent: rub, click - Extremities Extremities: pulses symmetrical, No edema Peripheral Pulses: within normal limits - Abdominal General gastrointestinal: Present: soft, non-tender, non-distended, normal bowel sounds Male genitourinary: Present: normal - Integumentary Integumentary: Present: clear, warm, dry - Neurologic Neurologic: other (Alert but communication limited due to dementia) Plan Activity: advance as tolerated Diet: low fat, low salt, other (pureed diet) Special Instructions: physical therapy Additional Instructions: Continue antibiotics and eliquis. Follow up with your orthopedic surgeon and primary doctor Follow up with: PRIMARY CARE, [Primary Care Provider] - 3-5 Days Prescriptions: Sulfamethoxazole/Trimethoprim [Bactrim DS TAB] 1 each PO BID #42 tablet cloNIDine-TTS PATCH [Catapres-Tts 0.1MG Patch] 0.1 mg TD Mo@1000 #21 patch Apixaban [Eliquis] 5 mg PO Q12HR #60 tablet Levothyroxine [Synthroid] 50 mcg PO DAILY@0600 #30 tablet
--- NOTE | 2020-03-11 13:56 | Event Note ---
Date: 03/11/20 Noted patient being discharged on hospice. Will sign off. Please call if questions.
[2020-03-11 18:21] VITALS: BP 134/63
== END 2020-03-11 21:18 | disposition hospice, inpatient (51) | DRG 871 ==
LOC: ED 12:08 → CC1 15:51 → 3A 03-05 14:30
PROVIDERS: ADMIT Internal Medicine; ATTEND Internal Medicine
DX: A41.9 Sepsis, unspecified organism (principal); G92 Toxic encephalopathy; N17.0 Acute kidney failure with tubular necrosis; N39.0 Urinary tract infection, site not specified; L03.221 Cellulitis of neck; E87.0 Hyperosmolality and hypernatremia; E87.2 Acidosis; I82.C11 Acute embolism and thrombosis of right internal jugular vein; I80.8 Phlebitis and thrombophlebitis of other sites; I10 Essential (primary) hypertension; E03.9 Hypothyroidism, unspecified; F17.210 Nicotine dependence, cigarettes, uncomplicated; E86.9 Volume depletion, unspecified; D64.9 Anemia, unspecified; E88.09 Other disorders of plasma-protein metabolism, not elsewhere classified; R65.20 Severe sepsis without septic shock; D47.3 Essential (hemorrhagic) thrombocythemia; Z82.49 Family history of ischemic heart disease and other diseases of the circulatory system
CPT/HCPCS: 36415; 70450; 70486; 70490; 70543; 71045; 74018; 76770; 80048; 80051; 80053; 80202; 80320; 81001; 82140; 82550; 82962; 83735; 83930; 83935; 84443; 85007; 85025; 85520; 85610; 85730; 86850; 86900; 86901; 87040; 87076; 87086; 87186; 93005; 93306; 96365; 96367; 96375; G0378; A9577; G0480; J0295; J0690; J0696; J1170; J1644; J2060; J2543; J3010; J3370; J3480; J7030; J7040; J7050; J7070